=== PATIENT | female | born 1945 | race Caucasian/White ===

== ENCOUNTER → 2017-07-03 | Outpatient (CLI) | payer OTHER ==
[2016-05-12 09:35] VITALS: BP 127/62
--- NOTE | 2017-07-03 11:40 | CT ---
HISTORY: Fracture tibial tuberosity Study: CT right knee and proximal tibia and fibula Comparison: None available Technique: Axial noncontrast images with coronal and sagittal reformats. Dose reduction procedures we re used with mA/kv adjusted for body size. Findings: The patient is status post total knee arthroplasty which contributes some artifact. Position and alig nment of the arthroplasty appears anatomic. The patella is intact. A small joint effusion is identifi ed. There does appear to be a not significantly displaced fracture of the tibial tuberosity along its medial aspect. The remainder of the proximal tibia and proximal fibula are intact. IMPRESSION: Not significantly displaced fracture of the medial aspect of the tibial tubercle Small joint effusion Status post TKA in good anatomical position Reported By:
== END | disposition home or self-care (01) | DRG 563 ==
LOC: RAD 10:19
PROVIDERS: ATTEND Orthopaedic Surgery Sports Medicine
DX: S82.154A Nondisplaced fracture of right tibial tuberosity, initial encounter for closed fracture (principal); X58.XXXA Exposure to other specified factors, initial encounter; Z98.890 Other specified postprocedural states
CPT/HCPCS: 73700

== ENCOUNTER 2021-03-28 21:53 | Observation (INO) ==
--- NOTE | 2021-03-28 22:20 | DR.CP ---
HPI Time Seen Time Seen by Provider: 03/28/21 22:00 PCP Primary Care Physician: HPI Comment HPI Comment: PATIENT IS 75YR OLD FEMALE IN ER WITH CHEST PAIN THAT STATED SUDDENLY TONIGHT AND ASSOCIATED WITH DIAPHORESIS AND ELEVATED BP. Complaint Chief Complaint Doctor Comments: CHEST PAIN. Chief Complaint:: PT'S FAMILY STATED THAT SHE STARTED C/O BACK PAIN, MID-STERNAL CHEST PAIN AND SHE WAS DISORIENTED, DRENCHED IN SWEAT. PT STATES "IT FEELS LIKE A KNOT IN THE MIDDLE OF MY CHEST". FAMILY STATED [id number] AT HOME. COVID-19 Coronavirus risk:travel/contact w/high risk person: No Has patient experienced Coronavirus symptoms: No Reviewed Nurses Notes Review: Yes Source History Provided: Patient and Family Member Mode of Arrival Mode of Arrival: Ambulatory Timing Onset of Chief Complaint: 03/28/21 Came on: Suddenly Pain: Present Now Duration Duration: Constant Duration: Hours Location Location of Chest Pain: Chest Context Onset: At rest Cardiac Risk Factors: HTN PE Risk Factors: None History of: None Prehospital Care: None Quality Quality: Sharp Severity Severity: Moderate Modifying Factors Worsens: Exertion Impoves: Rest Associated Signs and Symptoms Associated Signs and Symptoms: Shortness of Breath PMH PMH Past Medical History: Yes Past Medical History: Anxiety, Depression, Diabetes, GERD, Hypertension and Renal Disease Past Medical History Comment: NEUROGENIC BLADDER, GUILLAIN-BARRE' SYNDROME Past Surgical History: Yes Surgical History: Cholecystectomy, Hysterectomy and Ortho Surgery Past Surgical History Comment: NECK X2, BACK X2, RIGHT TKA, CATARACTS Family History History of Family Medical Conditions: Yes Family Medical History: MD and Hypertension Social History Does patient currently use any type of tobacco product: Yes Have you used tobacco products in the last 12 months: Yes Type of Tobacco Use: Cigarettes Does any household member use tobacco: Yes Alcohol Use: None Do you use any recreational Drugs:: No Lives With: Family Lives Where: Home Travel Risk Coronavirus risk:travel/contact w/high risk person: No Has patient experienced Coronavirus symptoms: No Infectious screening In the last 2 months have you had wt loss of >10#?: NO Have you had fever, night sweats or hemotysis?: No Have you traveled outside the country in the last 6 months?: No Isolation: Standard ROS Review of Systems Constitutional: See HPI, Weakness and Fatigue; negative Fever Eyes: No Symptoms Reported and See HPI ENTM: No Symptoms Reported and See HPI; negative Nose Discharge and Nose Conges tion Respiratoy: See HPI and Short of Breath; negative Moist Cough and Wheezing Cardiovascular: See HPI and Chest Pain; negative Edema and Palpitations Gastrointestinal/Abdominal: No Symptoms Reported and See HPI; negative Abdominal Pain, Diarrhea, Nausea and Vomiting Genitourinary: No Symptoms Reported and See HPI; negative Dysuria and Hematuria Neurological: See HPI and Weakness; negative Headache and Dizziness Musculoskeletal: See HPI and Back Pain Integumentary: No Symptoms Reported and See HPI; negative Change in Color, Rash and Juandice Hematologic/Lymphatic: No Symptoms Reported, See HPI and Easy Bruising; negative Swollen Glands Endocrine: No Symptoms Reported and See HPI; negative Increased Thirst and Increased Urine Psychiatric: No Symptoms Reported and See HPI All Other Systems: Reviewed and Negative PE Vitals Vitals: Temperature 98.4 F Pulse Rate [Left] 60 Pulse Rate 49 Respiratory Rate 8 Blood Pressure [Right Arm] 196/74 Blood Pressure 100/52 O2 Sat by Pulse Oximetry 96 General Limitations: No Limitations General Appearance: Alert and In No Apparent Distress Head Head Exam: Normal Inspection and Atraumatic Eyes Eye exam: Normal Appearance and PERRL; negative Scleral Icterus and Conjunctival Injection ENT ENT Exam: Normal Exam, Normal Oropharynx, Normal External Ear Exam and TM's Normal Bilaterally Chest Chest Inspection: Normal Inspection and Symmetric Chest Wall Rise; negative Tenderness Respiratory Respiratory Exam: Normal Lung Sounds Bilat; negative Accessory Muscle Use, Chest Wall Tenderness and Respiratory Distress Respiratory Exam: Bilateral: Rhonchi and Lower: Rhonchi Cardiovascular Cardiovascular Exam: Regular Rate and Normal Rhythm; negative Systolic Murmur and Diastolic Murmur Pulse: Normal Edema: Normal Abdominal Exam Abdominal Exam: Normal Inspection, Normal Bowel Sounds and Soft; negative Tenderness Extremities Extremities Exam: Normal Inspection and Normal Capillary Refill Back Back Exam: Paraspinal Tenderness; negative (R) CVA Tenderness and (L) CVA Tenderness Neurologic Neurological Exam: Alert and Oriented X3 Psychiatric Psychiatric Exam: Normal Affect and Normal Mood Skin Skin Exam: Warm, Dry, Intact and Normal Color MDM Additional Information Additional Information Obtained From: Family Differential Diagnosis Differential Diagnosis: Angina, Chest Wall Pain, CHF, Costochondritis, Myocardial Infarction, Pericarditis, Pleuritis, Pneumonia and Pneumothorax COURSE Treatment Treatment: SEE ORDERS. ASA 81MG TAB, 4TABS PO, CLONIDINE 0.1MG PO AND TYLENOL 1GM PO IN ER. Education/Counseling Education/Counseling: Patient Educated On: Diagnosis ROR Labs Reviewed Laboratory Results Reviewed?: Yes Result Diagrams: 03/28/21 22:30 03/28/21 22: Laboratory: WBC 22.4 X10^3/uL (3.6-10.0) H 03/28/21 22:30 RBC 4.44 X10^6/uL (3.5-5.4) 03/28/21 22: Hgb 11.8 g/dL (12.0-16.0) L 03/28/21 22: Hct 35.9 % (36.0-47.0) L 03/28/21 22: MCV 80.8 fL (80.0-100.0) 03/28/21 22: MCH 26.7 pg (27.0-34.0) L 03/28/21 22: MCHC 33.0 g/dL (33.0-35.0) 03/28/21 22: RDW 18.5 % (11.6-16.5) H 03/28/21 22: Plt Count 207 X10^3/uL (150.0-450.0) 03/28/21 22: Plt Count Comment Adequate (ADEQUATE) 03/28/21 22: MPV 9.9 fL (7.4-11.0) 03/28/21 22:30 Neut % (Auto) 84.0 % (42.0-75.0) H 03/28/21 22: Lymph % (Auto) 8.8 % (21.0-51.0) L 03/28/21 22: Roberts % (Auto) 6.2 % (0.0-13.0) 03/28/21 22: Eos % (Auto) 0.6 % (0.9-2.9) L 03/28/21 22: Baso % (Auto) 0.4 % (0.2-1.0) 03/28/21 22:30 Neut # (Auto) 18.8 x10^3/uL (2.2-4.8) H 03/28/21 22:30 Lymph # (Auto) 2.0 X10^3/uL (1.3-2.9) 03/28/21 22:30 Roberts # (Auto) 1.4 x10^3/uL (0.3-0.8) H 03/28/21 22:30 Eos # (Auto) 0.1 x10^3/uL (0.0-0.2) 03/28/21 22:30 Baso # (Auto) 0.1 X10^3/uL (0.0-0.1) 03/28/21 22:30 Absolute Nucleated RBC 0.0 /100WBC 03/28/21 22:30 Total Counted 100 03/28/21 22:30 Neutrophils % (Manual) 83 % (39-76) H 03/28/21 22:30 Lymphocytes % (Manual) 10 % (13-43) L 03/28/21 22:30 Monocytes % (Manual) 7 % (4-9) 03/28/21 22:30 Plt Morphology Comment Normal (NORMAL) 03/28/21 22:30 RBC Morphology Normal (NORMAL) 03/28/21 22:30 Sodium 136 mmol/L (136-145) 03/28/21 22:30 Corrected Sodium 137 mmol/L (136-145) 03/28/21 22:30 Potassium 4.5 mmol/L (3.5-5.1) 03/28/21 22:30 Chloride 101 mmol/L (98-107) 03/28/21 22:30 Carbon Dioxide 29.3 mmol/L (21-32) 03/28/21 22:30 BUN 30 mg/dL (7-18) H 03/28/21 22:30 Creatinine 1.41 mg/dL (0.55-1.02) H 03/28/21 22:30 Est GFR (MDRD) Af Amer 47 (>60) L 03/28/21 22:30 Est GFR (MDRD) Non-Af 39 (>60) L 03/28/21 22:30 Glucose 139 mg/dL (65-99) H 03/28/21 22:30 Calcium 8.7 mg/dL (8.5-10.1) 03/28/21 22:30 Corrected Calcium 9.4 mg/dL (8.5-10.1) 03/28/21 22:30 Total Bilirubin 0.30 mg/dL (0.2-1.0) 03/28/21 22:30 AST 20 Units/L (15-37) 03/28/21 22:30 ALT 18 Units/L (12-78) 03/28/21 22:30 Alkaline Phosphatase 84 Units/L (46-116) 03/28/21 22:30 Creatine Kinase 39 Units/L (26-192) 03/28/21 22:30 CK-MB (CK-2) < 1.0 ng/mL (0-4.0) 03/28/21 22: CK/CKMB % Calc 2.6 % (<4) 03/28/21 22: Troponin I < 0.02 ng/mL (0-1.5) 03/28/21 22: B-Natriuretic Peptide 73.0 pg/mL (0-79) 03/28/21 22:30 Total Protein 7.1 g/dL (6.4-8.2) 03/28/21 22:30 Albumin 3.1 g/dL (3.4-5.0) L 03/28/21 22: Globulin 4.0 g/dL (2.5-4.5) 03/28/21 22:30 Albumin/Globulin Ratio 0.8 Ratio (1.1-2.1) L 03/28/21 22:30 Specimen Type Clean catch urine 03/28/21 23:20 Urine Color Yellow (YELLOW) 03/28/21 23:20 Urine Appearance Cloudy (CLEAR) 03/28/21 23:20 Urine pH 6.0 (5.0 - 8.0) 03/28/21 23:20 Ur Specific [place] 1.010 (1.000-1.030) 03/28/21 23:20 Urine Protein 2+ (NEGATIVE) 03/28/21 23:20 Urine Glucose (UA) Negative (NEGATIVE) 03/28/21 23:20 Urine Ketones Negative (NEGATIVE) 03/28/21 23:20 Urine Occult Blood 3+ (NEGATIVE) 03/28/21 23:20 Urine Nitrite Positive (NEGATIVE) 03/28/21 23:20 Urine Bilirubin Negative (NEGATIVE) 03/28/21 23:20 Urine Urobilinogen Normal (NORMAL) 03/28/21 23:20 Ur Leukocyte Esterase 3+ (NEGATIVE) 03/28/21 23:20 Urine RBC 3-5 /HPF (0-3) A 03/28/21 23:20 Urine WBC Tntc /HPF (0-5) A 03/28/21 23:20 Ur Squamous Epith Cells Negative /HPF (NEGATIVE) 03/28/21 23:20 Urine Bacteria 2+ /HPF (NEGATIVE) 03/28/21 23:20 Ur Culture Indicated? Yes/culture set up 03/28/21 23:20 SARS CoV-2 RNA Rapid CHRISTOPHER Negative (NEGATIVE) 03/29/21 01:00 XRAY XRAY Interpreted by: Radiologist (REPORT NOTED AND DISCUSSED WITH PATIENT.) and Self EKG Rate: 71 [place]: Normal Rhythm: NSR Block: 1 Hypertrophy: None ST: Nonsp Opioid Opioid Risk Tool Age (Khang box if 16-45): No History of Preadolescent Sexual Abuse: No Total: 0 Total Score Risk Category: Low Risk Copyright: Nils MORENO predicting aberrant behaviors Diagnosis Discharge Problem: Chest pain Qualifiers: Chest pain type: precordial pain Qualified Code(s): R07.2 - Precordial pain UTI (urinary tract infection) Qualifiers: Urinary tract infection type: site unspecified Hematuria presence: with hematuria Qualified Code(s): N39.0 - Urinary tract infection, site not specified Hypertension Qualifiers: Hypertension type: unspecified Qualified Code(s): I10 - Essential (primary) hy pertension Leukocytosis Qualifiers: Leukocytosis type: unspecified Qualified Code(s): D72.829 - Elevated white blood cell count, unspecified Instructions Forms: Precautions for COVID19 Patient Portal Social Distancing
[2021-03-28] MEDS ORDERED: ASPIRIN 81 MG CHEWTAB ONE (22:38)
[2021-03-28 22:42] LABS: BASOPHILS # (AUTO) 0.1 X10^3/uL (0.0-0.1); BASOPHILS % (AUTO) 0.4 % (0.2-1.0); EOSINOPHILS # (AUTO) 0.1 x10^3/uL (0.0-0.2); EOSINOPHILS % (AUTO) 0.6 % (0.9-2.9); HEMATOCRIT 35.9 % (36.0-47.0); HEMOGLOBIN 11.8 g/dL (12.0-16.0); LYMPHOCYTES % (AUTO) 8.8 % (21.0-51.0); MEAN CORPUSCULAR HEMOGLOBIN 26.7 pg (27.0-34.0); MEAN CORPUSCULAR VOLUME 80.8 fL (80.0-100.0); MEAN PLATELET VOLUME 9.9 fL (7.4-11.0); MONOCYTES # (AUTO) 1.4 x10^3/uL (0.3-0.8); MONOCYTES % (AUTO) 6.2 % (0.0-13.0); NEUTROPHILS # (AUTO) 18.8 x10^3/uL (2.2-4.8); PLATELET COUNT 207 X10^3/uL (150.0-450.0); RED BLOOD COUNT 4.44 X10^6/uL (3.5-5.4); RED CELL DISTRIBUTION WIDTH 18.5 % (11.6-16.5); WHITE BLOOD COUNT 22.4 X10^3/uL (3.6-10.0)
[2021-03-28] MEDS: ASPIRIN 81 MG CHEWTAB PO ONE ×2 (22:42→22:43)
[2021-03-28 23:00] LABS: ALANINE AMINOTRANSFERASE 18 Units/L (12-78); ALBUMIN 3.1 g/dL (3.4-5.0); ALKALINE PHOSPHATASE 84 Units/L (46-116); ASPARTATE AMINO TRANSFERASE 20 Units/L (15-37); BLOOD UREA NITROGEN 30 mg/dL (7-18); CALCIUM 8.7 mg/dL (8.5-10.1); CARBON DIOXIDE 29.3 mmol/L (21-32); CHLORIDE 101 mmol/L (98-107); CKMB % 2.6 % (<4); COR CA(FOR HYPOALB) 9.4 mg/dL (8.5-10.1); COR NA(FOR HYPERGLY) 137 mmol/L (136-145); CREATINE KINASE 39 Units/L (26-192); CREATINE KINASE MB < 1.0 ng/mL (0-4.0); CREATININE 1.41 mg/dL (0.55-1.02); SODIUM 136 mmol/L (136-145); TOTAL PROTEIN 7.1 g/dL (6.4-8.2); TROPONIN I < 0.02 ng/mL (0-1.5); eGFR NON BLACK RACES 39 (>60)
[2021-03-28] MEDS ORDERED: CATAPRES TAB 0.1 MG PO ONE (23:01)
[2021-03-28] MEDS ORDERED: TYLENOL 500 MG TAB EXTRA STRENGTH PO ONE ×2 (23:02→23:05)
[2021-03-28] MEDS ORDERED: CATAPRES TAB 0.1 MG ONE (23:05)
--- NOTE | 2021-03-28 23:08 | RAD ---
PROCEDURE: Chest X-ray 1 View .HISTORY: chest pain .TECHNIQUE: AP view .COMPARISON: None .TECHNICAL QUALITY: Satisfactory .FINDINGS:Normal size heart .Mediastinum and hilar regions show no masses or lymphadenopathy .Normal central vascularity .No pulmonary consolidation, masses, pleural fluid, or pneumothorax .No acute bony abnormality .IMPRESSION:No active cardiopulmonary disease .Electronically signed by: Eddy Ramsey (Mar 28, 2021 23:05:56)
[2021-03-28 23:27] LABS: BILIRUBIN,URINE NEGATIVE (NEGATIVE); BLOOD/HEMOGLOBIN,URINE 3+ (NEGATIVE); GLUCOSE, URINE NEGATIVE (NEGATIVE); KETONES,URINE NEGATIVE (NEGATIVE); LEUKOCYTE ESTERASE ,URINE 3+ (NEGATIVE); NITRITES,URINE POSITIVE (NEGATIVE); PROTEIN,URINE 2+ (NEGATIVE); UROBILINOGEN,URINE NORMAL (NORMAL)
[2021-03-28 23:29] LABS: PLATELET MORPHOLOGY COMMENT NORMAL (NORMAL)
[2021-03-28 23:35] LABS: APPEARANCE,URINE CLOUDY (CLEAR); BACTERIA,URINE 2+ /HPF (NEGATIVE); COLOR,URINE YELLOW (YELLOW); SQUAMOUS EPITHELIAL CELL,UR NEGATIVE /HPF (NEGATIVE)
[2021-03-29] MEDS ORDERED: ROCEPHIN 1 GRAM IV PREMIX 1 G/50 ML IV.SOLN. IV ONE ×2 (00:30→00:35)
[2021-03-29] MEDS ORDERED: NS 1000 ML 1,000 ML ONE (00:52)
[2021-03-29] MEDS: NS 1000 ML 1,000 ML IV SCH ×2 (01:05→22:00)
[2021-03-29] MEDS ORDERED: ZANAFLEX PO PRN (02:49)
[2021-03-29 04:44] VITALS: BMI 27.3
[2021-03-29 05:11] LABS: BASOPHILS # (AUTO) 0.1 X10^3/uL (0.0-0.1); BASOPHILS % (AUTO) 0.5 % (0.2-1.0); EOSINOPHILS # (AUTO) 0.1 x10^3/uL (0.0-0.2); EOSINOPHILS % (AUTO) 0.8 % (0.9-2.9); HEMATOCRIT 31.1 % (36.0-47.0); HEMOGLOBIN 10.3 g/dL (12.0-16.0); LYMPHOCYTES # (AUTO) 2.6 X10^3/uL (1.3-2.9); MEAN CORPUSCULAR HEMOGLOBIN 26.7 pg (27.0-34.0); MEAN CORPUSCULAR HGB CONC 33.1 g/dL (33.0-35.0); MEAN CORPUSCULAR VOLUME 80.8 fL (80.0-100.0); MEAN PLATELET VOLUME 10.1 fL (7.4-11.0); NEUTROPHILS # (AUTO) 13.4 x10^3/uL (2.2-4.8); NEUTROPHILS % (AUTO) 77.7 % (42.0-75.0); PLATELET COUNT 186 X10^3/uL (150.0-450.0); RED BLOOD COUNT 3.85 X10^6/uL (3.5-5.4); RED CELL DISTRIBUTION WIDTH 18.3 % (11.6-16.5); WHITE BLOOD COUNT 17.3 X10^3/uL (3.6-10.0)
[2021-03-29 05:45] LABS: ALANINE AMINOTRANSFERASE 15 Units/L (12-78); ALBUMIN 2.5 g/dL (3.4-5.0); ALKALINE PHOSPHATASE 74 Units/L (46-116); ASPARTATE AMINO TRANSFERASE 18 Units/L (15-37); BLOOD UREA NITROGEN 30 mg/dL (7-18); CALCIUM 8.4 mg/dL (8.5-10.1); CHLORIDE 104 mmol/L (98-107); CKMB % 3.9 % (<4); COR CA(FOR HYPOALB) 9.6 mg/dL (8.5-10.1); COR NA(FOR HYPERGLY) 139 mmol/L (136-145); CREATINE KINASE 33 Units/L (26-192); CREATINE KINASE MB 1.3 ng/mL (0-4.0); CREATININE 1.28 mg/dL (0.55-1.02); SODIUM 138 mmol/L (136-145); TOTAL PROTEIN 6.1 g/dL (6.4-8.2); TROPONIN I < 0.02 ng/mL (0-1.5); eGFR NON BLACK RACES 43 (>60)
[2021-03-29] MEDS ORDERED: LEXAPRO ONE (08:55)
[2021-03-29] MEDS: LEXAPRO PO SCH (09:18)
[2021-03-29] MEDS: LYRICA CAP 75 mg PO SCH (09:18)
[2021-03-29] MEDS: NAMENDA TAB 10 MG PO SCH ×2 (09:19→21:08)
[2021-03-29] MEDS: URECHOLINE PO SCH ×3 (09:19→09:39)
--- NOTE | 2021-03-29 10:52 | DR.H&P ---
H&P - History & Physical for Day of: H&P Date: 03/29/21 - Chief Complaint Chief Complaint: CHEST PAIN, DISORIENTATION, DIAPHORESIS, LOWER BACK PAIN - History of Present Illness History of Present Illness: IS A 75 YEAR OLD PATIENT OF OURS. SHE PRESENTED TO THE ER WITH COMPLAINTS OF CHEST PAIN, DISORIENTATION, DIARPHORESIS, AND LOWER BACK PAIN. PATIENT REPORTS THAT SYMPTOMS STARTED SUDDENLY TODAY, PAIN IS DESCRIBED SUBSTERNAL, SHARP, AND WAS RATED A 6/10 ON ARRIVAL. SHE ALSO REPORTS ASSOCIATED SHORTNESS OF BREATH. HER PMH INCLUDES: ANXIETY, DEPRESSION DIABETES, GERD, HTN, RENAL DISEASE, NEUROGENIC BLADDER, GUILLAIN-BARRE SYNDROME. PAST SURGICAL HISTORY INCLUDES: CHOLECYSTECTOMY, HYSTERECTOMY, NECK SURGERY X 2, BACK SURGERY X 2, RIGHT TKA, AND CATARACT SURGERY. ON ARRIVAL TO THE ER, VITALS WERE 98.4-59-20-100%-180/73. LABS WERE OBTAINED. ABNORMAL LAB VALUES INCLUDE THE FOLLOWING: WBC 22.4, HGB 11.8, HCT 35.9, BUN 30, CREATININE 1.41, GLUCOSE 139, ALBUMIN 3.1. CARDIAC ENYZMES WERE WITHIN NORMAL LIMITS. COVID-19 NEGATIVE. A URINALYSIS WAS OBTAINED AND REVEALED: WBC TNTC, RBC 3-5, LEUKOCYTES 3+, BACTERIA 2+, OCCULT BLOOD 3+, NITRITES POSITIVE. URINE AND BLOOD CULTURES WERE SET UP. EKG OBTAINED AND REVEALED: SINUS RHYTHM WITH HR 71. CHEST XRAY REVEALED: No active cardiopulmonary disease. IN THE ER, SHE WAS GIVEN ASPIRIN 324MG PO X 1, CATAPRES 0.1MG PO X 1, TYLENOL 1000MG PO X 1, ROCEPHIN 1G IV X 1. SHE WAS ADMITTED TO THE HOSPITAL FOR FURTHER EVALUATION AND TREATMENT OF LEUKOCYTOSIS, UTI, CHEST PAIN RULE OUT ACUTE RI, LOWER BACK PAIN. SHE WAS STARTED ON NORMAL SALINE AT 50 ML/HR, ROCEPHIN 1G IV HS, AND HER HOME MEDICATIONS OF TIZANIDINE, LEXAPRO, LYRICA, AND BETHANECHOL WERE RESUMED. WE WILL OBTAIN A LUMBAR SPINE XRAY. OTHERWISE, WE WILL FOLLOW UP WITH AM LABS AND CONTINUE TO MONITOR. TIME SPENT ON CLINICAL ASSESSMENT, REVIEWING LABS AND IMAGING, DECISION MAKING, AND DOCUMENTATION GREATER THAN 45 MINUTES. - Past Medical History Past Medical History: Hypertension, Diabetes, Renal Disease, Depression, Anxiety, GERD Additional Medical History: NEUROGENIC BLADDER, GUILLAIN-BARRE SYNDROME - Past Surgical History Surgical History: Cholecystectomy, Hysterectomy, Ortho Surgery - Family History Family Medical History: RI, Hypertension - Social History Does patient currently use any type of tobacco product: Yes Have you used tobacco products in the last 12 months: Yes Type of Tobacco Use: Cigarettes How many years tobacco product used: 53 Does any household member use tobacco: Yes Alcohol Use: None Drug Use: None - Medications Home Medications: ciprofloxacin [From Cipro HC] Adverse Reaction (Severe, Verified 03/28/21 21:54) ANAPHALEXIS REACTION hydrocortisone [From Cipro HC] Adverse Reaction (Severe, Verified 03/28/21 21:54) ANAPHALEXIS REACTION acetaminophen [From Lorcet (hydrocodone)] Adverse Reaction (Mild, Verified 03/28/21 21:54) RASH baclofen Adverse Reaction (Mild, Verified 03/28/21 21:54) RASH hydrocodone [From Lorcet (hydrocodone)] Adverse Reaction (Mild, Verified 03/28/21 21:54) RASH tramadol Adverse Reaction (Mild, Verified 03/28/21 21:54) RASH CONTINUE taking the following medications bethanechol chloride 10 mg PO QID 03/28/21 [History] clonazepam 0.5 mg PO HS 03/28/21 [History] escitalopram oxalate [Lexapro] 5 mg PO DAILY 03/28/21 [History] famotidine 40 mg PO BID 03/28/21 [History] memantine [Namenda] 5 mg PO BID 03/28/21 [History] tizanidine 4 mg PO BID PRN 03/28/21 [History] - Review of Systems Constitutional: See HPI, Chills, Weakness Eyes: No Symptoms Reported ENT: No Symptoms Reported Respiratory: No Symptoms Reported Cardiovascular: Chest Pain, Light Headedness Gastrointestinal: No Symptoms Reported Genitourinary: No Symptoms Reported Musculoskeletal: Back Pain Skin: No Symptoms Reported Neurological: See HPI, Weakness, Confusion - Physical Exam Vital Signs: Temperature 97.6 F Pulse Rate [Left] 48 Pulse Rate 49 Respiratory Rate 18 Blood Pressure [Right Arm] 118/57 Blood Pressure 100/52 O2 Sat by Pulse Oximetry 98 Oriented: Person Eyes: Normal Ear: Normal Nose: Normal Throat: Normal Respiratory: Diminished Throughout Cardiovascular: Normal : Normal Auscultation: Bowel Sounds: Normal Palpation: Normal Tenderness: Normal Skin: Diaphoresis Musculoskeletal: Back:Lumbar Psychiatric: Normal Mood Description: Calm Affect: Normal Speech Pattern: Clear - Assessment/Plan (1) Leukocytosis Qualifiers: Leukocytosis type: unspecified Qualified Code(s): D72.829 - Elevated white blood cell count, unspecified Status: Acute Plan: ADMIT, BLOOD AND URINE CULTURES, NORMAL SALINE AT 50 ML/HR, ROCEPHIN 1G IV HS, AND HER HOME MEDICATIONS OF TIZANIDINE, LEXAPRO, LYRICA, AND BETHANECHOL WERE RESUMED. (2) UTI (urinary tract infection) Qualifiers: Urinary tract infection type: site unspecified Hematuria presence: with hematuria Qualified Code(s): N39.0 - Urinary tract infection, site not specified; R31.9 - Hematuria, unspecified Status: Acute (3) Chest pain Qualifiers: Chest pain type: precordial pain Qualified Code(s): R07.2 - Precordial pain Status: Acute (4) Low back pain Qualifiers: Chronicity: unspecified Back pain laterality: unspecified Sciatica presence: unspecified whether sciatica present Qualified Code(s): M54.5 - Low back pain Status: Acute - Allergies Allergies/Adverse Reactions: Allergies Allergy/AdvReac Type Severity Reaction Status Date / Time ciprofloxacin [From Cipro HC] AdvReac Severe ANAPHALEXIS Verified 03/28/21 21:54 REACTION hydrocortisone AdvReac Severe ANAPHALEXIS Verified 03/28/21 21:54 [From Cipro HC] REACTION acetaminophen AdvReac Mild RASH Verified 03/28/21 21:54 [From Lorcet (hydrocodone)] baclofen AdvReac Mild RASH Verified 03/28/21 21:54 hydrocodone AdvReac Mild RASH Verified 03/28/21 21:54 [From Lorcet (hydrocodone)] tramadol AdvReac Mild RASH Verified 03/28/21 21:54
[2021-03-29] MEDS: PATIENT'S HOME MEDICATION PO SCH ×2 (10:55→21:11)
--- NOTE | 2021-03-29 11:33 | RAD ---
HISTORYLOW BACK PAINSTUDYLUMBAR SPINE, x-ray AP/LATCOMPARISONNoneFINDINGSModerate gaseous distention is seen of the colon, especially the transverse colon. Moderate gaseous dilation of the stomach is seen. No constipation or bowel obstruction is suggested.Diffuse arthritic facet changes are greatest at L5-S1. Mild disc space narrowing is seen at L5-S1. Moderate to prominent posterior osteophytes are seen in the mid to lower lumbar spine. No compression fracture is seen. No spondylolisthesis is seen. There is mild prominence of the upper abdominal aorta which measures 2.3 cm in diameter.IMPRESSIONModerate lumbar spondylosis.Electronically signed by: Hernán Mcdaniels (Mar 29, 2021 11:30:46)
[2021-03-29 11:35] LABS: CREATINE KINASE 37 Units/L (26-192); TROPONIN I < 0.02 ng/mL (0-1.5)
[2021-03-29 11:59] LABS: CKMB % 4.1 % (<4); CREATINE KINASE MB 1.5 ng/mL (0-4.0)
[2021-03-29] MEDS: LOVENOX INJ 30 MG SYR SC SCH (14:05)
[2021-03-29] MEDS: ZANAFLEX PO PRN (21:07)
[2021-03-29] MEDS: KLONOPIN TAB 0.5 MG PO SCH (21:08)
[2021-03-29] MEDS: ROCEPHIN IV SCH (22:00)
[2021-03-29] MEDS: SPIKE MINIBAG IV SCH (22:00)
[2021-03-29] MEDS: NS IV SCH (22:00)
[2021-03-30] MEDS: NS 1000 ML 1,000 ML IV SCH ×2 (04:49→07:51)
[2021-03-30 06:03] LABS: BASOPHILS # (AUTO) 0.1 X10^3/uL (0.0-0.1); BASOPHILS % (AUTO) 0.7 % (0.2-1.0); EOSINOPHILS # (AUTO) 0.3 x10^3/uL (0.0-0.2); HEMATOCRIT 28.6 % (36.0-47.0); HEMOGLOBIN 9.6 g/dL (12.0-16.0); LYMPHOCYTES # (AUTO) 3.2 X10^3/uL (1.3-2.9); LYMPHOCYTES % (AUTO) 36.6 % (21.0-51.0); MEAN CORPUSCULAR HEMOGLOBIN 27.5 pg (27.0-34.0); MEAN CORPUSCULAR HGB CONC 33.8 g/dL (33.0-35.0); MEAN CORPUSCULAR VOLUME 81.5 fL (80.0-100.0); MEAN PLATELET VOLUME 10.5 fL (7.4-11.0); MONOCYTES # (AUTO) 0.7 x10^3/uL (0.3-0.8); NEUTROPHILS # (AUTO) 4.4 x10^3/uL (2.2-4.8); NEUTROPHILS % (AUTO) 51.7 % (42.0-75.0); PLATELET COUNT 167 X10^3/uL (150.0-450.0); RED CELL DISTRIBUTION WIDTH 18.6 % (11.6-16.5); WHITE BLOOD COUNT 8.6 X10^3/uL (3.6-10.0)
[2021-03-30 06:18] LABS: ALBUMIN 2.4 g/dL (3.4-5.0); COR CA(FOR HYPOALB) 9.3 mg/dL (8.5-10.1); CREATININE 1.45 mg/dL (0.55-1.02); TOTAL PROTEIN 5.7 g/dL (6.4-8.2)
[2021-03-30] MEDS ORDERED: LEXAPRO ONE (09:44)
[2021-03-30] MEDS: LEXAPRO PO SCH (09:54)
[2021-03-30] MEDS: LYRICA CAP 75 mg PO SCH (09:54)
[2021-03-30] MEDS: NAMENDA TAB 10 MG PO SCH ×2 (09:55→21:19)
[2021-03-30] MEDS: LOVENOX INJ 30 MG SYR SC SCH (09:55)
[2021-03-30] MEDS: PATIENT'S HOME MEDICATION PO SCH ×2 (09:59→21:20)
[2021-03-30] MEDS ORDERED: NS 1/2 1000 ML IV 1,000 ML IV ONE (12:18)
[2021-03-30] MEDS: NS 1/2 1000 ML IV 1,000 ML IV SCH (12:20)
--- NOTE | 2021-03-30 16:33 | PCM.PROG ---
Progress Note - Progress Note for Day of Date of Exam: 03/30/21 - Subjective Subjective: WAS ADMITTED FOR TREATMENT OF LEUKOCYTOSIS, UTI, CHEST PAIN, AND LOWER BACK PAIN. TODAY, SHE IS ALERT AND ORIENTED, LYING IN BED ON MORNING ROUNDS. SHE REPORTS GENERALIZED WEAKNESS AND CONTINUES WITH LOWER BACK PAIN. SHE DENIES CHEST PAIN. ON EXAMINATION, HEART IS REGULAR IN RATE AND RHYTHM. BILATERAL LUNGS ARE CLEAR TO AUSCULTATION. ABDOMEN IS ROUND, SOFT, AND NON-TENDER WITH NORMAL BOWEL SOUNDS NOTED IN ALL QUADRANTS. HER VITALS THIS MORNING ARE: 97.8-53-18-98%-116/58. LABS WERE OBTAINED. ABNORMAL LAB VALUES INCLUDE THE FOLLOWING: HGB 9.6, HCT 28.6, SODIUM 146, CHLORIDE 113, BUN 33, CREATININE 1.45, GLUCOSE 144, CALCIUM 8.0, TOTAL BILI 0.10, TOTAL PROTEIN 5.7, ALBUMIN 2.4. URINE AND BLOOD CULTURES ARE PENDING. L-SPINE WAS OBTAINED AND REVEALED: Moderate lumbar spondylosis. SHE IS CURRENTLY RECEIVING NORMAL SALINE AT 50 ML/HR, ROCEPHIN 1G IV HS, AND HER HOME MEDICATIONS OF TIZANIDINE, LEXAPRO, LYRICA, AND BETHANECHOL WERE RESUMED. WE WILL CONTINUE WITH CURRENT PLAN OF CARE TODAY. OTHERWISE, WE WILL FOLLOW UP WITH AM LABS AND CONTINUE TO MONITOR. TIME SPENT ON CLINICAL ASSESSMENT, REVIEWING LABS AND IMAGING, DECISION MAKING, AND DOCUMENTATION WAS GREATER THAN 45 MINUTES. - Past Medical Family Social History Past Med/Fam/Surg Hx: No changes since H&P Allergies: Allergies ciprofloxacin [From Cipro HC] Adverse Reaction (Severe, Verified 03/28/21 21:54) ANAPHALEXIS REACTION hydrocortisone [From Cipro HC] Adverse Reaction (Severe, Verified 03/28/21 21:54) ANAPHALEXIS REACTION acetaminophen [From Lorcet (hydrocodone)] Adverse Reaction (Mild, Verified 03/28/21 21:54) RASH baclofen Adverse Reaction (Mild, Verified 03/28/21 21:54) RASH hydrocodone [From Lorcet (hydrocodone)] Adverse Reaction (Mild, Verified 03/28/21 21:54) RASH tramadol Adverse Reaction (Mild, Verified 03/28/21 21:54) RASH - Review of Systems ROS: No change since H&P - Vital Signs and I&O's Vital Signs: Temperature 97.4 F Pulse Rate [Left] 55 Pulse Rate 49 Respiratory Rate 18 Blood Pressure [Right Arm] 140/62 Blood Pressure 100/52 O2 Sat by Pulse Oximetry 97 Intake and Output: Intake & Output 03/28/21 03/29/21 03/30/21 03/31/21 11:59 11:59 11:59 11:59 Intake Total 650 / 650 1900 / 1900 Output Total 400 / 400 Balance 250 / 250 1900 / 1900 - Physical Exam Oriented: Person Eyes: Normal Ear: Normal Nose: Normal Throat: Normal Respiratory: Normal Cardiovascular: Normal : Normal Auscultation: Bowel Sounds: Normal Palpation: Normal Tenderness: Normal Skin: Diaphoresis Musculoskeletal: Back:Lumbar Psychiatric: Normal Mood Description: Calm Affect: Normal Speech Pattern: Clear, Appropriate - Laboratory and Diagnostics Result Diagrams: 03/30/21 04:40 03/30/21 04:40 Labs: 03/28/21 23:20 Urine,Clean Catch Urine Culture - Preliminary Laboratory WBC 8.6 X10^3/uL (3.6-10.0) D 03/30/21 04:40 RBC 3.50 X10^6/uL (3.5-5.4) 03/30/21 04:40 Hgb 9.6 g/dL (12.0-16.0) L 03/30/21 04:40 Hct 28.6 % (36.0-47.0) L 03/30/21 04:40 MCV 81.5 fL (80.0-100.0) 03/30/21 04:40 MCH 27.5 pg (27.0-34.0) 03/30/21 04:40 MCHC 33.8 g/dL (33.0-35.0) 03/30/21 04:40 RDW 18.6 % (11.6-16.5) H 03/30/21 04:40 Plt Count 167 X10^3/uL (150.0-450.0) 03/30/21 04:40 Plt Count Comment Adequate (ADEQUATE) 03/28/21 22:30 MPV 10.5 fL (7.4-11.0) 03/30/21 04:40 Neut % (Auto) 51.7 % (42.0-75.0) 03/30/21 04:40 Lymph % (Auto) 36.6 % (21.0-51.0) 03/30/21 04:40 Burnett % (Auto) 8.0 % (0.0-13.0) 03/30/21 04:40 Eos % (Auto) 3.0 % (0.9-2.9) H 03/30/21 04:40 Baso % (Auto) 0.7 % (0.2-1.0) 03/30/21 04:40 Neut # (Auto) 4.4 x10^3/uL (2.2-4.8) 03/30/21 04:40 Lymph # (Auto) 3.2 X10^3/uL (1.3-2.9) H 03/30/21 04:40 Burnett # (Auto) 0.7 x10^3/uL (0.3-0.8) 03/30/21 04:40 Eos # (Auto) 0.3 x10^3/uL (0.0-0.2) H 03/30/21 04:40 Baso # (Auto) 0.1 X10^3/uL (0.0-0.1) 03/30/21 04:40 Absolute Nucleated RBC 0.0 /100WBC 03/30/21 04:40 Total Counted 100 03/28/21 22:30 Neutrophils % (Manual) 83 % (39-76) H 03/28/21 22:30 Lymphocytes % (Manual) 10 % (13-43) L 03/28/21 22:30 Monocytes % (Manual) 7 % (4-9) 03/28/21 22:30 Plt Morphology Comment Normal (NORMAL) 03/28/21 22:30 RBC Morphology Normal (NORMAL) 03/28/21 22:30 Sodium 146 mmol/L (136-145) H 03/30/21 04:40 Corrected Sodium 147 mmol/L (136-145) H 03/30/21 04:40 Potassium 4.6 mmol/L (3.5-5.1) 03/30/21 04:40 Chloride 113 mmol/L (98-107) H 03/30/21 04:40 Carbon Dioxide 27.0 mmol/L (21-32) 03/30/21 04:40 BUN 33 mg/dL (7-18) H 03/30/21 04:40 Creatinine 1.45 mg/dL (0.55-1.02) H 03/30/21 04:40 Est GFR (MDRD) Af Amer 46 (>60) L 03/30/21 04:40 Est GFR (MDRD) Non-Af 38 (>60) L 03/30/21 04:40 Glucose 144 mg/dL (65-99) H 03/30/21 04:40 Calcium 8.0 mg/dL (8.5-10.1) L 03/30/21 04:40 Corrected Calcium 9.3 mg/dL (8.5-10.1) 03/30/21 04:40 Magnesium 3.0 mg/dL (1.7-2.9) H 03/29/21 04:15 Total Bilirubin 0.10 mg/dL (0.2-1.0) L 03/30/21 04:40 AST 18 Units/L (15-37) 03/30/21 04:40 ALT 15 Units/L (12-78) 03/30/21 04:40 Alkaline Phosphatase 69 Units/L (46-116) 03/30/21 04:40 Creatine Kinase 37 Units/L (26-192) 03/29/21 10:48 CK-MB (CK-2) 1.5 ng/mL (0-4.0) 03/29/21 10:48 CK/CKMB % Calc 4.1 % (<4) 03/29/21 10:48 Troponin I < 0.02 ng/mL (0-1.5) 03/29/21 10:48 B-Natriuretic Peptide 73.0 pg/mL (0-79) 03/28/21 22:30 Total Protein 5.7 g/dL (6.4-8.2) L 03/30/21 04:40 Albumin 2.4 g/dL (3.4-5.0) L 03/30/21 04:40 Globulin 3.3 g/dL (2.5-4.5) 03/30/21 04:40 Albumin/Globulin Ratio 0.7 Ratio (1.1-2.1) L 03/30/21 04:40 Specimen Type Clean catch urine 03/28/21 23:20 Urine Color Yellow (YELLOW) 03/28/21 23:20 Urine Appearance Cloudy (CLEAR) 03/28/21 23:20 Urine pH 6.0 (5.0 - 8.0) 03/28/21 23:20 Ur Specific Adamant 1.010 (1.000-1.030) 03/28/21 23:20 Urine Protein 2+ (NEGATIVE) 03/28/21 23:20 Urine Glucose (UA) Negative (NEGATIVE) 03/28/21 23:20 Urine Ketones Negative (NEGATIVE) 03/28/21 23:20 Urine Occult Blood 3+ (NEGATIVE) 03/28/21 23:20 Urine Nitrite Positive (NEGATIVE) 03/28/21 23:20 Urine Bilirubin Negative (NEGATIVE) 03/28/21 23:20 Urine Urobilinogen Normal (NORMAL) 03/28/21 23:20 Ur Leukocyte Esterase 3+ (NEGATIVE) 03/28/21 23:20 Urine RBC 3-5 /HPF (0-3) A 03/28/21 23:20 Urine WBC Tntc /HPF (0-5) A 03/28/21 23:20 Ur Squamous Epith Cells Negative /HPF (NEGATIVE) 03/28/21 23:20 Urine Bacteria 2+ /HPF (NEGATIVE) 03/28/21 23:20 Ur Culture Indicated? Yes/culture set up 03/28/21 23:20 SARS CoV-2 RNA Rapid CHRISTOPHER Negative (NEGATIVE) 03/29/21 01:00 - Plan (1) Leukocytosis Status: Acute Qualifiers: Leukocytosis type: unspecified Qualified Code(s): D72.829 - Elevated white blood cell count, unspecified Plan: BLOOD AND URINE CULTURES, NORMAL SALINE AT 50 ML/HR, ROCEPHIN 1G IV HS, AND HER HOME MEDICATIONS OF TIZANIDINE, LEXAPRO, LYRICA, AND BETHANECHOL WERE RESUMED. (2) UTI (urinary tract infection) Status: Acute Qualifiers: Urinary tract infection type: site unspecified Hematuria presence: with hematuria Qualified Code(s): N39.0 - Urinary tract infection, site not specified; R31.9 - Hematuria, unspecified (3) Chest pain Status: Acute Qualifiers: Chest pain type: precordial pain Qualified Code(s): R07.2 - Precordial pain (4) Low back pain Status: Acute Qualifiers: Chronicity: unspecified Back pain laterality: unspecified Sciatica presence: unspecified whether sciatica present Qualified Code(s): M54.5 - Low back pain
[2021-03-30] MEDS: KLONOPIN TAB 0.5 MG PO SCH (21:19)
[2021-03-30] MEDS: ROCEPHIN IV SCH (21:20)
[2021-03-30] MEDS: SPIKE MINIBAG IV SCH (21:20)
[2021-03-30] MEDS: NS IV SCH (21:20)
[2021-03-30] MEDS: ZANAFLEX PO PRN (21:32)
[2021-03-31] MEDS: NS 1/2 1000 ML IV 1,000 ML IV SCH ×2 (05:12→06:36)
[2021-03-31] MEDS ORDERED: NS 1/2 1000 ML IV 1,000 ML IV ONE (05:49)
[2021-03-31 05:58] LABS: BASOPHILS # (AUTO) 0.1 X10^3/uL (0.0-0.1); BASOPHILS % (AUTO) 0.8 % (0.2-1.0); EOSINOPHILS # (AUTO) 0.3 x10^3/uL (0.0-0.2); EOSINOPHILS % (AUTO) 2.9 % (0.9-2.9); HEMATOCRIT 29.4 % (36.0-47.0); HEMOGLOBIN 9.8 g/dL (12.0-16.0); LYMPHOCYTES # (AUTO) 3.5 X10^3/uL (1.3-2.9); LYMPHOCYTES % (AUTO) 39.6 % (21.0-51.0); MEAN CORPUSCULAR HEMOGLOBIN 27.4 pg (27.0-34.0); MEAN CORPUSCULAR HGB CONC 33.3 g/dL (33.0-35.0); MEAN CORPUSCULAR VOLUME 82.4 fL (80.0-100.0); MEAN PLATELET VOLUME 10.4 fL (7.4-11.0); MONOCYTES # (AUTO) 0.8 x10^3/uL (0.3-0.8); NEUTROPHILS # (AUTO) 4.2 x10^3/uL (2.2-4.8); NEUTROPHILS % (AUTO) 47.7 % (42.0-75.0); PLATELET COUNT 173 X10^3/uL (150.0-450.0); RED BLOOD COUNT 3.57 X10^6/uL (3.5-5.4); RED CELL DISTRIBUTION WIDTH 18.4 % (11.6-16.5); WHITE BLOOD COUNT 8.7 X10^3/uL (3.6-10.0)
[2021-03-31 06:43] LABS: ALANINE AMINOTRANSFERASE 18 Units/L (12-78); ALBUMIN 2.3 g/dL (3.4-5.0); ALKALINE PHOSPHATASE 67 Units/L (46-116); ASPARTATE AMINO TRANSFERASE 27 Units/L (15-37); BLOOD UREA NITROGEN 23 mg/dL (7-18); CALCIUM 8.2 mg/dL (8.5-10.1); CARBON DIOXIDE 26.3 mmol/L (21-32); CHLORIDE 113 mmol/L (98-107); COR CA(FOR HYPOALB) 9.6 mg/dL (8.5-10.1); CREATININE 1.27 mg/dL (0.55-1.02); SODIUM 146 mmol/L (136-145); TOTAL PROTEIN 5.8 g/dL (6.4-8.2); eGFR NON BLACK RACES 44 (>60)
[2021-03-31] MEDS ORDERED: LEXAPRO ONE (09:18)
[2021-03-31] MEDS: LOVENOX INJ 30 MG SYR SC SCH (10:02)
[2021-03-31] MEDS: LEXAPRO PO SCH (10:02)
[2021-03-31] MEDS: PATIENT'S HOME MEDICATION PO SCH (10:03)
[2021-03-31] MEDS: LYRICA CAP 75 mg PO SCH (10:03)
[2021-03-31] MEDS: NAMENDA TAB 10 MG PO SCH (10:03)
[2021-03-31 12:46] VITALS: BP 132/63
== END 2021-03-31 12:20 | disposition home or self-care (01) ==
LOC: MED/SURG 21:53 → ER 21:53 → MED/SURG 03-29 02:42
PROVIDERS: ADMIT Internal Medicine; ATTEND Internal Medicine
DX: I10 Essential (primary) hypertension; R26.89 Other abnormalities of gait and mobility; K21.9 Gastro-esophageal reflux disease without esophagitis; B96.89 Other specified bacterial agents as the cause of diseases classified elsewhere; E11.65 Type 2 diabetes mellitus with hyperglycemia; Z20.822 Contact with and (suspected) exposure to COVID-19; R06.02 Shortness of breath; N39.0 Urinary tract infection, site not specified; M54.5 Low back pain; M47.896 Other spondylosis, lumbar region; R41.0 Disorientation, unspecified; R07.2 Precordial pain

== ENCOUNTER 2021-10-02 15:57 | Inpatient (IN) ==
[2021-10-02 16:17] VITALS: BMI 26.5
[2021-10-02 16:50] LABS: BILIRUBIN,URINE NEGATIVE (NEGATIVE); BLOOD/HEMOGLOBIN,URINE 5+ (NEGATIVE); GLUCOSE, URINE NEGATIVE (NEGATIVE); KETONES,URINE NEGATIVE (NEGATIVE); LEUKOCYTE ESTERASE ,URINE 3+ (NEGATIVE); NITRITES,URINE POSITIVE (NEGATIVE); PROTEIN,URINE 4+ (NEGATIVE); UROBILINOGEN,URINE NORMAL (NORMAL)
[2021-10-02 16:57] LABS: APPEARANCE,URINE CLOUDY (CLEAR); COLOR,URINE YELLOW (YELLOW)
[2021-10-02 16:58] LABS: BACTERIA,URINE 3+ /HPF (NEGATIVE); HYALINE CASTS, URINE FEW /LPF (NEGATIVE); SQUAMOUS EPITHELIAL CELL,UR FEW /HPF (NEGATIVE)
[2021-10-02 17:21] LABS: BASOPHILS # (AUTO) 0.1 X10^3/uL (0.0-0.1); BASOPHILS % (AUTO) 0.3 % (0.2-1.0); EOSINOPHILS % (AUTO) 0.1 % (0.9-2.9); HEMATOCRIT 39.7 % (36.0-47.0); HEMOGLOBIN 13.2 g/dL (12.0-16.0); LYMPHOCYTES # (AUTO) 0.8 X10^3/uL (1.3-2.9); LYMPHOCYTES % (AUTO) 3.8 % (21.0-51.0); MEAN CORPUSCULAR HEMOGLOBIN 28.9 pg (27.0-34.0); MEAN CORPUSCULAR HGB CONC 33.2 g/dL (33.0-35.0); MEAN CORPUSCULAR VOLUME 86.9 fL (80.0-100.0); MEAN PLATELET VOLUME 10.2 fL (7.4-11.0); MONOCYTES % (AUTO) 4.5 % (0.0-13.0); NEUTROPHILS # (AUTO) 19.5 x10^3/uL (2.2-4.8); NEUTROPHILS % (AUTO) 91.3 % (42.0-75.0); RED BLOOD COUNT 4.56 X10^6/uL (3.5-5.4); WHITE BLOOD COUNT 21.3 X10^3/uL (3.6-10.0)
--- NOTE | 2021-10-02 17:29 | RAD ---
HISTORYPT C/O WORSENING WEAKNESS; TROUBLE AMBULATING ANXIETY, HTN, RENAL DISEASE, NEUROGENIC BLADDER, GUILLAIN BARRE SX: KOFFI, NECK, BACK, KNEE SURGSTUDYCHEST, 1 VIEWCOMPARISONChest radiograph dated March 28, 2021.FINDINGSThe trachea is midline. The cardiac silhouette is unremarkable.The lungs are clear without focal infiltrate or effusion.The bony thorax is unremarkable.IMPRESSIONNo acute cardiopulmonary findings or changes.Electronically signed by: EVERTON CAMARA III (Oct 02, 2021 17:28:14)
[2021-10-02 17:37] LABS: ALBUMIN 2.6 g/dL (3.4-5.0); CALCIUM 8.5 mg/dL (8.5-10.1); CARBON DIOXIDE 26.3 mmol/L (21-32); COR CA(FOR HYPOALB) 9.6 mg/dL (8.5-10.1); CREATININE 1.99 mg/dL (0.55-1.02); TOTAL PROTEIN 6.7 g/dL (6.4-8.2)
[2021-10-02 17:39] LABS: BAND NEUTROPHILS % 1 % (0-10); PLATELET MORPHOLOGY COMMENT NORMAL (NORMAL)
[2021-10-02 17:43] LABS: LACTIC ACID 1.2 mmol/L (0.4-2.0)
[2021-10-02] MEDS ORDERED: ZOSYN VIAL 3.375 GRAMS 3.375 G in NS 100 ML IV + SPIKE MINIBAG* 100 ML IV ONE (18:12)
[2021-10-02] MEDS ORDERED: ZOSYN VIAL 3.375 GRAMS IV ONE (18:22)
[2021-10-02] MEDS ORDERED: NS 1,000 ML IV 1,000 ML ONE (18:23)
[2021-10-02] MEDS ORDERED: NS 100 ML IV + SPIKE MINIBAG* 100 ML IV ONE (18:23)
[2021-10-02] MEDS: NS 1,000 ML IV 1,000 ML IV SCH (18:27)
[2021-10-02] MEDS ORDERED: ZOSYN VIAL 3.375 GRAMS 3.375 G in NS 100 ML IV + SPIKE MINIBAG* 100 ML IV SCH (19:00)
--- NOTE | 2021-10-02 19:12 | DR.GENAD ---
HPI Time Seen Time Seen by Provider: 10/02/21 18:11 PCP Primary Care Physician: MARIAJOSE HINES HPI Comment HPI Comment: Pt accompanied by daughter .According to her pt was doing well before yesterday .was able to ambulate with walker .however since yesterday pt has not been eating and drinking been more confused and that this is differnt from what her normal mentation is .pt has garrido catheter in place and her urine is more cloudier than normal and that they have not been draining much urine from it .She has complained of some discomfort in the lower belly today Concerned daugher called in the ambulance and pt was brought to Er Complaint/Symptoms Chief Complaint Doctors Comments: not feeling well Chief Complaint:: PT STATES THAT SHE HAS BEEN FEELING PROGRESSIVELY MORE WEAK TODAY. FAMILY STATES THAT SHE HAS HAD MORE DIFFICULTY AMBULATING TODAY. PT IS NOTED TO HAVE AN INDWELLING CATHETER AND URINE IS NOTED TO BE VERY CLOUDY AND PALE COVID-19 Coronavirus risk:travel/contact w/high risk person: No Has patient experienced Coronavirus symptoms: No Nurses notes reviewed Nurses Notes Review: Yes Source History Provided: Patient and EMS Mode of Arrival Mode of Arrival: EMS Timing Onset of Chief Complaint: 10/02/21 Came on: Gradually Duration Duration: Constant Duration: Days Severity Severity: Moderate PMH PMH Past Medical History: Yes Past Medical History: Anxiety, Depression, GERD, Hypertension, Renal Disease and Sleep Apnea Past Medical History Comment: NEUROGENIC BLADDER, GUILLAN BARRE Past Surgical History: Yes Surgical History: Cholecystectomy and Ortho Surgery Past Surgical History Comment: NECK SURGERY, BACK SURGERY, KNEE SURGERY, CATARACT SURGERY Family History History of Family Medical Conditions: Yes Family Medical History: IA and Hypertension Social History Does patient currently use any type of tobacco product: Yes Have you used tobacco products in the last 12 months: Yes Type of Tobacco Use: Cigarettes Does any household member use tobacco: Yes Alcohol Use: None Do you use any recreational Drugs:: No Lives With: Family Lives Where: Home Travel Risk Coronavirus risk:travel/contact w/high risk person: No Has patient experienced Coronavirus symptoms: No Infectious screening In the last 2 months have you had wt loss of >10#?: NO Have you had fever, night sweats or hemotysis?: No Have you traveled outside the country in the last 6 months?: No Isolation: Standard ROS Review of Systems Constitutional: Weakness Eyes: No Symptoms Reported Respiratoy: No Symptoms Reported Cardiovascular: No Symptoms Reported Gastrointestinal/Abdominal: See HPI Genitourinary: Dysuria Musculoskeletal: No Symptoms Reported Endocrine: No Symptoms Reported PE Vital Signs Vitals: Temperature 99.0 F Pulse Rate 77 Respiratory Rate 22 Blood Pressure [Right Arm] 132/63 Blood Pressure 148/63 O2 Sat by Pulse Oximetry 98 General Limitations: No Limitations General Appearance: Alert, Anxious and Lethargic Head Head Exam: Normal Inspection, Atraumatic and Normocephalic Eyes Eye exam: PERRL and EOMI ENT ENT Exam: Mucous Membranes Dry Mouth Exam: Normal Inspection Neck Neck Exam: Normal Inspection and Full ROM Chest Chest Inspection: Normal Inspection and Symmetric Chest Wall Rise Respiratory Respiratory Exam: Normal Lung Sounds Bilat Respiratory Exam: Bilateral: Clear to Auscultation Cardiovascular Cardiovascular Exam: +S1 and +S2 Abdominal Exam Abdominal Exam: Normal Inspection, Normal Bowel Sounds, Tenderness and Other (garrido catheter with cloudy urine ) Neurologic Neurological Exam: Alert and Other (pt has wekaness in the lower ext due to underlying neurodegenerative disorder ) Skin Skin Exam: Normal Color MDM Differential Diagnosis Differential Diagnosis: urosepsis ,confusion ,indwelling garrido catheter COURSE Treatment Treatment: labs ,change garrido and send the tip for culture ROR Labs Reviewed Laboratory Results Reviewed?: Yes Result Diagrams: 10/02/21 17:09 10/02/21 17:09 Laboratory: WBC 21.3 X10^3/uL (3.6-10.0) H 10/02/21 17:09 RBC 4.56 X10^6/uL (3.5-5.4) 10/02/21 17:09 Hgb 13.2 g/dL (12.0-16.0) 10/02/21 17:09 Hct 39.7 % (36.0-47.0) 10/02/21 17:09 MCV 86.9 fL (80.0-100.0) 10/02/21 17:09 MCH 28.9 pg (27.0-34.0) 10/02/21 17:09 MCHC 33.2 g/dL (33.0-35.0) 10/02/21 17:09 RDW 15.0 % (11.6-16.5) 10/02/21 17:09 Plt Count 182 X10^3/uL (150.0-450.0) 10/02/21 17:09 Plt Count Comment Adequate (ADEQUATE) 10/02/21 17:09 MPV 10.2 fL (7.4-11.0) 10/02/21 17:09 Neut % (Auto) 91.3 % (42.0-75.0) H 10/02/21 17:09 Lymph % (Auto) 3.8 % (21.0-51.0) L 10/02/21 17:09 [facility] % (Auto) 4.5 % (0.0-13.0) 10/02/21 17:09 Eos % (Auto) 0.1 % (0.9-2.9) L 10/02/21 17:09 Baso % (Auto) 0.3 % (0.2-1.0) 10/02/21 17:09 Neut # (Auto) 19.5 x10^3/uL (2.2-4.8) H 10/02/21 17:09 Lymph # (Auto) 0.8 X10^3/uL (1.3-2.9) L 10/02/21 17:09 [facility] # (Auto) 1.0 x10^3/uL (0.3-0.8) H 10/02/21 17:09 Eos # (Auto) 0.0 x10^3/uL (0.0-0.2) 10/02/21 17:09 Baso # (Auto) 0.1 X10^3/uL (0.0-0.1) 10/02/21 17:09 Absolute Nucleated RBC 0.0 /100WBC 10/02/21 17:09 Total Counted 100 10/02/21 17:09 Neutrophils % (Manual) 91 % (39-76) H 10/02/21 17:09 Band Neutrophils % 1 % (0-10) 10/02/21 17:09 Lymphocytes % (Manual) 5 % (13-43) L 10/02/21 17:09 Monocytes % (Manual) 3 % (4-9) L 10/02/21 17:09 Plt Morphology Comment Normal (NORMAL) 10/02/21 17:09 RBC Morphology Normal (NORMAL) 10/02/21 17:09 Sodium 142 mmol/L (136-145) 10/02/21 17:09 Corrected Sodium 144 mmol/L (136-145) 10/02/21 17:09 Potassium 4.2 mmol/L (3.5-5.1) 10/02/21 17:09 Chloride 107 mmol/L (98-107) 10/02/21 17:09 Carbon Dioxide 26.3 mmol/L (21-32) 10/02/21 17:09 BUN 32 mg/dL (7-18) H 10/02/21 17:09 Creatinine 1.99 mg/dL (0.55-1.02) H 10/02/21 17:09 Est GFR (MDRD) Af Amer 32 (>60) L 10/02/21 17:09 Est GFR (MDRD) Non-Af 26 (>60) L 10/02/21 17:09 Glucose 187 mg/dL (65-99) H 10/02/21 17:09 Lactic Acid 1.2 mmol/L (0.4-2.0) 10/02/21 17:09 Calcium 8.5 mg/dL (8.5-10.1) 10/02/21 17:09 Corrected Calcium 9.6 mg/dL (8.5-10.1) 10/02/21 17:09 Total Bilirubin 0.30 mg/dL (0.2-1.0) 10/02/21 17:09 AST 16 Units/L (15-37) 10/02/21 17:09 ALT 15 Units/L (12-78) 10/02/21 17:09 Alkaline Phosphatase 75 Units/L (46-116) 10/02/21 17:09 Total Protein 6.7 g/dL (6.4-8.2) 10/02/21 17:09 Albumin 2.6 g/dL (3.4-5.0) L 10/02/21 17:09 Globulin 4.1 g/dL (2.5-4.5) 10/02/21 17:09 Albumin/Globulin Ratio 0.6 Ratio (1.1-2.1) L 10/02/21 17:09 Specimen Type Catherized urine 10/02/21 16:40 Urine Color Yellow (YELLOW) 10/02/21 16:40 Urine Appearance Cloudy (CLEAR) 10/02/21 16:40 Urine pH 6.0 (5.0 - 8.0) 10/02/21 16:40 Ur Specific Amo 1.015 (1.000-1.030) 10/02/21 16:40 Urine Protein 4+ (NEGATIVE) 10/02/21 16:40 Urine Glucose (UA) Negative (NEGATIVE) 10/02/21 16:40 Urine Ketones Negative (NEGATIVE) 10/02/21 16:40 Urine Occult Blood 5+ (NEGATIVE) 10/02/21 16:40 Urine Nitrite Positive (NEGATIVE) 10/02/21 16:40 Urine Bilirubin Negative (NEGATIVE) 10/02/21 16:40 Urine Urobilinogen Normal (NORMAL) 10/02/21 16:40 Ur Leukocyte Esterase 3+ (NEGATIVE) 10/02/21 16:40 Urine RBC 10-20 /HPF (0-3) A 10/02/21 16:40 Urine WBC Tntc /HPF (0-5) A 10/02/21 16:40 Ur Squamous Epith Cells Few /HPF (NEGATIVE) 10/02/21 16:40 Amorphous Sediment 1+ /HPF (NEGATIVE) 10/02/21 16:40 Urine Bacteria 3+ /HPF (NEGATIVE) 10/02/21 16:40 Hyaline Casts Few /LPF (NEGATIVE) 10/02/21 16:40 Urine Mucus Few /HPF (NEGATIVE) 10/02/21 16:40 Ur Culture Indicated? Yes/culture set up 10/02/21 16:40 SARS CoV-2 RNA Rapid CHRISTOPHER Negative (NEGATIVE) 10/02/21 17:55 Opioid Opioid Risk Tool Age (Khang box if 16-45): No History of Preadolescent Sexual Abuse: No Total: 0 Total Score Risk Category: Low Risk Copyright: [facility] predicting aberrant behaviors Diagnosis Discharge Problem: Garrido catheter in place, Dehydration Sepsis Qualifiers: Sepsis type: sepsis due to unspecified organism Sepsis acute organ dysfunction status: unspecified Qualified Code(s): A41.9 - Sepsis, unspecified organism Acute on chronic kidney failure Qualifiers: Acute renal failure type: unspecified Chronic kidney disease stage: stage 3 (moderate) Chronic kidney disease stage 3 subtype: stage 3b (GFR 30-44) Qualified Code(s): N17.9 - Acute kidney failure, unspecified ADDITIONAL NOTES Additional Notes Additional Notes: pt s case discussed with Dr Dumont .Pt will be admitted for urosepsis, acute on chronic renal failure
--- NOTE | 2021-10-02 19:32 | DR.GENAD ---
HPI Time Seen Time Seen by Provider: 10/02/21 18:11 PCP Primary Care Physician: MARIAJOSE HINES HPI Comment HPI Comment: Pt accomnied by daughter. According to her patient was well before 2 days ago.she was walking with walker .However pt noted to have decreased appetite ,increasd confusion ,complained of discomfort in her lower belly ,urine more cloudier and with decarseed urine output in her garrido catheter.Concerned daughter brought patient to ER by calling ambulance .Furthermore patient mentation was worse than her normal basline Complaint/Symptoms Chief Complaint Doctors Comments: not feeling well Chief Complaint:: PT STATES THAT SHE HAS BEEN FEELING PROGRESSIVELY MORE WEAK TODAY. FAMILY STATES THAT SHE HAS HAD MORE DIFFICULTY AMBULATING TODAY. PT IS N OTED TO HAVE AN INDWELLING CATHETER AND URINE IS NOTED TO BE VERY CLOUDY AND PALE COVID-19 Coronavirus risk:travel/contact w/high risk person: No Has patient experienced Coronavirus symptoms: No Nurses notes reviewed Nurses Notes Review: Yes Source History Provided: Patient and EMS Mode of Arrival Mode of Arrival: EMS Timing Onset of Chief Complaint: 10/02/21 Came on: Gradually Duration Duration: Constant Duration: Days Severity Severity: Moderate PMH PMH Past Medical History: Yes Past Medical History: Anxiety, Depression, GERD, Hypertension, Renal Disease and Sleep Apnea Past Medical History Comment: NEUROGENIC BLADDER, GUILLAN BARRE Past Surgical History: Yes Surgical History: Cholecystectomy and Ortho Surgery Past Surgical History Comment: NECK SURGERY, BACK SURGERY, KNEE SURGERY, CATARACT SURGERY Family History History of Family Medical Conditions: Yes Family Medical History: [place] and Hypertension Social History Does patient currently use any type of tobacco product: Yes Have you used tobacco products in the last 12 months: Yes Type of Tobacco Use: Cigarettes Does any household member use tobacco: Yes Alcohol Use: None Do you use any recreational Drugs:: No Lives With: Family Lives Where: Home Travel Risk Coronavirus risk:travel/contact w/high risk person: No Has patient experienced Coronavirus symptoms: No Infectious screening In the last 2 months have you had wt loss of >10#?: NO Have you had fever, night sweats or hemotysis?: No Have you traveled outside the country in the last 6 months?: No Isolation: Standard ROS Review of Systems Constitutional: Malaise and Fatigue Eyes: No Symptoms Reported ENTM: No Symptoms Reported Respiratoy: No Symptoms Reported Cardiovascular: No Symptoms Reported Gastrointestinal/Abdominal: Abdominal Pain Genitourinary: Dysuria and Other (Garrido catheter in place ) Neurological: Other (has neurodegenerative disorder ) Hematologic/Lymphatic: No Symptoms Reported Endocrine: No Symptoms Reported PE Vital Signs Vitals: Temperature 99.0 F Pulse Rate 77 Respiratory Rate 22 Blood Pressure [Right Arm] 132/63 Blood Pressure 148/63 O2 Sat by Pulse Oximetry 98 General Limitations: No Limitations General Appearance: Alert and Lethargic Head Head Exam: Normal Inspection, Atraumatic and Normocephalic Eyes Eye exam: PERRL and EOMI ENT ENT Exam: Normal Exam and Mucous Membranes Dry Mouth Exam: Normal Inspection Neck Neck Exam: Normal Inspection, Full ROM and Trachea Midline Chest Chest Inspection: Normal Inspection and Symmetric Chest Wall Rise Respiratory Respiratory Exam: Normal Lung Sounds Bilat Respiratory Exam: Bilateral: Clear to Auscultation Cardiovascular Cardiovascular Exam: +S1 and +S2 Abdominal Exam Abdominal Exam: Normal Bowel Sounds, Soft, Tenderness and Other (suprapubic soreness .Garrido catheter draining cloudier urine noted ) Abdominal Tenderness: Suprapubic Extremities Extremities Exam: Other Neurologic Neurological Exam: Alert and Other (weakness of left lower ext v right chronic ) Skin Skin Exam: Normal Color MDM Differential Diagnosis Differential Diagnosis: urosepsis,indwelling garrido catheter ,hx of neurodegenerative disorder COURSE Treatment Treatment: labs ,urinalysis ,changed garrido cather with tip sent for culture ROR Labs Reviewed Laboratory Results Reviewed?: Yes Result Diagrams: 10/02/21 17:09 10/02/21 17:09 Laboratory: WBC 21.3 X10^3/uL (3.6-10.0) H 10/02/21 17:09 RBC 4.56 X10^6/uL (3.5-5.4) 10/02/21 17:09 Hgb 13.2 g/dL (12.0-16.0) 10/02/21 17:09 Hct 39.7 % (36.0-47.0) 10/02/21 17:09 MCV 86.9 fL (80.0-100.0) 10/02/21 17:09 MCH 28.9 pg (27.0-34.0) 10/02/21 17:09 MCHC 33.2 g/dL (33.0-35.0) 10/02/21 17:09 RDW 15.0 % (11.6-16.5) 10/02/21 17:09 Plt Count 182 X10^3/uL (150.0-450.0) 10/02/21 17:09 Plt Count Comment Adequate (ADEQUATE) 10/02/21 17:09 MPV 10.2 fL (7.4-11.0) 10/02/21 17:09 Neut % (Auto) 91.3 % (42.0-75.0) H 10/02/21 17:09 Lymph % (Auto) 3.8 % (21.0-51.0) L 10/02/21 17:09 [place] % (Auto) 4.5 % (0.0-13.0) 10/02/21 17:09 Eos % (Auto) 0.1 % (0.9-2.9) L 10/02/21 17:09 Baso % (Auto) 0.3 % (0.2-1.0) 10/02/21 17:09 Neut # (Auto) 19.5 x10^3/uL (2.2-4.8) H 10/02/21 17:09 Lymph # (Auto) 0.8 X10^3/uL (1.3-2.9) L 10/02/21 17:09 [place] # (Auto) 1.0 x10^3/uL (0.3-0.8) H 10/02/21 17:09 Eos # (Auto) 0.0 x10^3/uL (0.0-0.2) 10/02/21 17:09 Baso # (Auto) 0.1 X10^3/uL (0.0-0.1) 10/02/21 17:09 Absolute Nucleated RBC 0.0 /100WBC 10/02/21 17:09 Total Counted 100 10/02/21 17:09 Neutrophils % (Manual) 91 % (39-76) H 10/02/21 17:09 Band Neutrophils % 1 % (0-10) 10/02/21 17:09 Lymphocytes % (Manual) 5 % (13-43) L 10/02/21 17:09 Monocytes % (Manual) 3 % (4-9) L 10/02/21 17:09 Plt Morphology Comment Normal (NORMAL) 10/02/21 17:09 RBC Morphology Normal (NORMAL) 10/02/21 17:09 Sodium 142 mmol/L (136-145) 10/02/21 17:09 Corrected Sodium 144 mmol/L (136-145) 10/02/21 17:09 Potassium 4.2 mmol/L (3.5-5.1) 10/02/21 17:09 Chloride 107 mmol/L (98-107) 10/02/21 17:09 Carbon Dioxide 26.3 mmol/L (21-32) 10/02/21 17:09 BUN 32 mg/dL (7-18) H 10/02/21 17:09 Creatinine 1.99 mg/dL (0.55-1.02) H 10/02/21 17:09 Est GFR (MDRD) Af Amer 32 (>60) L 10/02/21 17:09 Est GFR (MDRD) Non-Af 26 (>60) L 10/02/21 17:09 Glucose 187 mg/dL (65-99) H 10/02/21 17:09 Lactic Acid 1.2 mmol/L (0.4-2.0) 10/02/21 17:09 Calcium 8.5 mg/dL (8.5-10.1) 10/02/21 17:09 Corrected Calcium 9.6 mg/dL (8.5-10.1) 10/02/21 17:09 Total Bilirubin 0.30 mg/dL (0.2-1.0) 10/02/21 17:09 AST 16 Units/L (15-37) 10/02/21 17:09 ALT 15 Units/L (12-78) 10/02/21 17:09 Alkaline Phosphatase 75 Units/L (46-116) 10/02/21 17:09 Total Protein 6.7 g/dL (6.4-8.2) 10/02/21 17:09 Albumin 2.6 g/dL (3.4-5.0) L 10/02/21 17:09 Globulin 4.1 g/dL (2.5-4.5) 10/02/21 17:09 Albumin/Globulin Ratio 0.6 Ratio (1.1-2.1) L 10/02/21 17:09 Specimen Type Catherized urine 10/02/21 16:40 Urine Color Yellow (YELLOW) 10/02/21 16:40 Urine Appearance Cloudy (CLEAR) 10/02/21 16:40 Urine pH 6.0 (5.0 - 8.0) 10/02/21 16:40 Ur Specific [place] 1.015 (1.000-1.030) 10/02/21 16:40 Urine Protein 4+ (NEGATIVE) 10/02/21 16:40 Urine Glucose (UA) Negative (NEGATIVE) 10/02/21 16:40 Urine Ketones Negative (NEGATIVE) 10/02/21 16:40 Urine Occult Blood 5+ (NEGATIVE) 10/02/21 16:40 Urine Nitrite Positive (NEGATIVE) 10/02/21 16:40 Urine Bilirubin Negative (NEGATIVE) 10/02/21 16:40 Urine Urobilinogen Normal (NORMAL) 10/02/21 16:40 Ur Leukocyte Esterase 3+ (NEGATIVE) 10/02/21 16:40 Urine RBC 10-20 /HPF (0-3) A 10/02/21 16:40 Urine WBC Tntc /HPF (0-5) A 10/02/21 16:40 Ur Squamous Epith Cells Few /HPF (NEGATIVE) 10/02/21 16:40 Amorphous Sediment 1+ /HPF (NEGATIVE) 10/02/21 16:40 Urine Bacteria 3+ /HPF (NEGATIVE) 10/02/21 16:40 Hyaline Casts Few /LPF (NEGATIVE) 10/02/21 16:40 Urine Mucus Few /HPF (NEGATIVE) 10/02/21 16:40 Ur Culture Indicated? Yes/culture set up 10/02/21 16:40 SARS CoV-2 RNA Rapid CHRISTOPHER Negative (NEGATIVE) 10/02/21 17:55 Opioid Opioid Risk Tool Age (Khang box if 16-45): No History of Preadolescent Sexual Abuse: No Total: 0 Total Score Risk Category: Low Risk Copyright: [facility] predicting aberrant behaviors Diagnosis Discharge Problem: Garrido catheter in place, Dehydration Sepsis Qualifiers: Sepsis type: sepsis due to unspecified organism Sepsis acute organ dysfunction status: unspecified Qualified Code(s): A41.9 - Sepsis, unspecified organism Acute on chronic kidney failure Qualifiers: Acute renal failure type: unspecified Chronic kidney disease stage: stage 3 (moderate) Chronic kidney disease stage 3 subtype: stage 3b (GFR 30-44) Qualified Code(s): N17.9 - Acute kidney failure, unspecified ADDITIONAL NOTES Additional Notes Additional Notes: spoke with Dr Dumont.Agreed who accepted patient for admission for urosepsis,dehydration,acute on chronic renal failure
[2021-10-02] MEDS: ZOSYN VIAL 3.375 GRAMS 3.375 G in NS 100 ML IV + SPIKE MINIBAG* 100 ML IV SCH (19:59)
[2021-10-03] MEDS: NS 1,000 ML IV 1,000 ML IV SCH ×3 (04:56→20:26)
[2021-10-03] MEDS: ZOSYN VIAL 3.375 GRAMS 3.375 G in NS 100 ML IV + SPIKE MINIBAG* 100 ML IV SCH ×3 (05:00→22:59)
[2021-10-03 05:32] LABS: ALBUMIN 2.1 g/dL (3.4-5.0); CARBON DIOXIDE 22.6 mmol/L (21-32); COR CA(FOR HYPOALB) 9.5 mg/dL (8.5-10.1); CREATININE 2.05 mg/dL (0.55-1.02); TOTAL PROTEIN 5.8 g/dL (6.4-8.2)
[2021-10-03 05:33] LABS: BASOPHILS % (AUTO) 0.2 % (0.2-1.0); HEMATOCRIT 33.4 % (36.0-47.0); LYMPHOCYTES % (AUTO) 4.6 % (21.0-51.0); MEAN CORPUSCULAR HEMOGLOBIN 28.9 pg (27.0-34.0); MEAN CORPUSCULAR HGB CONC 33.5 g/dL (33.0-35.0); MEAN CORPUSCULAR VOLUME 86.3 fL (80.0-100.0); MEAN PLATELET VOLUME 11.1 fL (7.4-11.0); MONOCYTES # (AUTO) 1.4 x10^3/uL (0.3-0.8); MONOCYTES % (AUTO) 6.2 % (0.0-13.0); NEUTROPHILS # (AUTO) 19.6 x10^3/uL (2.2-4.8); RED BLOOD COUNT 3.87 X10^6/uL (3.5-5.4); RED CELL DISTRIBUTION WIDTH 15.5 % (11.6-16.5)
[2021-10-03 06:08] LABS: HEMOGLOBIN 11.2 g/dL (12.0-16.0)
[2021-10-03 06:09] LABS: BAND NEUTROPHILS % 2 % (0-10); PLATELET MORPHOLOGY COMMENT NORMAL (NORMAL)
[2021-10-03] MEDS ORDERED: LEXAPRO ONE (08:30)
[2021-10-03] MEDS: NAMENDA TAB 10 MG PO SCH (08:35)
[2021-10-03] MEDS: LEXAPRO PO SCH (08:35)
[2021-10-03] MEDS ORDERED: NS 1,000 ML IV 1,000 ML IV ONE (11:06)
[2021-10-03] MEDS: LYRICA CAP 75 mg PO SCH (11:38)
[2021-10-03] MEDS: PEPCID TAB 40 MG PO SCH ×2 (11:38→20:27)
[2021-10-03] MEDS: VIBRAMYCIN 100 MG in D5W 250 ML IV 250 ML IV SCH ×2 (12:45→20:27)
[2021-10-03] MEDS: KLONOPIN TAB 0.5 MG PO SCH (20:27)
[2021-10-04] MEDS: NS 1,000 ML IV 1,000 ML IV SCH ×4 (02:49→19:11)
[2021-10-04 05:34] LABS: BASOPHILS # (AUTO) 0.1 X10^3/uL (0.0-0.1); BASOPHILS % (AUTO) 0.4 % (0.2-1.0); EOSINOPHILS # (AUTO) 0.1 x10^3/uL (0.0-0.2); EOSINOPHILS % (AUTO) 0.3 % (0.9-2.9); HEMATOCRIT 31.4 % (36.0-47.0); HEMOGLOBIN 10.6 g/dL (12.0-16.0); LYMPHOCYTES # (AUTO) 1.5 X10^3/uL (1.3-2.9); MEAN CORPUSCULAR HEMOGLOBIN 29.2 pg (27.0-34.0); MEAN CORPUSCULAR HGB CONC 33.8 g/dL (33.0-35.0); MEAN CORPUSCULAR VOLUME 86.4 fL (80.0-100.0); MEAN PLATELET VOLUME 10.7 fL (7.4-11.0); MONOCYTES # (AUTO) 0.9 x10^3/uL (0.3-0.8); MONOCYTES % (AUTO) 5.5 % (0.0-13.0); NEUTROPHILS # (AUTO) 14.2 x10^3/uL (2.2-4.8); NEUTROPHILS % (AUTO) 84.8 % (42.0-75.0); RED BLOOD COUNT 3.64 X10^6/uL (3.5-5.4); RED CELL DISTRIBUTION WIDTH 15.3 % (11.6-16.5); WHITE BLOOD COUNT 16.7 X10^3/uL (3.6-10.0)
[2021-10-04 05:45] LABS: ALBUMIN 1.8 g/dL (3.4-5.0); CARBON DIOXIDE 21.5 mmol/L (21-32); COR CA(FOR HYPOALB) 9.8 mg/dL (8.5-10.1); CREATININE 1.72 mg/dL (0.55-1.02); TOTAL PROTEIN 5.6 g/dL (6.4-8.2)
[2021-10-04] MEDS ORDERED: POTASSIUM CHLORIDE LIQ 20 MEQ UDC PO PRN (06:01)
[2021-10-04] MEDS ORDERED: MICRO K EXTEN CAP 10 MEQ PO PRN (06:01)
[2021-10-04] MEDS ORDERED: POTASSIUM CHL 60 MEQ/NS 0.45% 500 ML IV PRN (06:01)
[2021-10-04] MEDS ORDERED: KLOR-CON PO PRN (06:01)
[2021-10-04] MEDS ORDERED: K-RIDER 10 MEQ/NS 100 ML 10 MEQ/100 ML BAG IV PRN (06:01)
[2021-10-04] MEDS ORDERED: POTASSIUM CHL 40 MEQ/NS 0.45% 500 ML IV PRN (06:01)
[2021-10-04] MEDS: ZOSYN VIAL 3.375 GRAMS 3.375 G in NS 100 ML IV + SPIKE MINIBAG* 100 ML IV SCH ×3 (06:02→22:58)
[2021-10-04] MEDS ORDERED: LEXAPRO ONE (08:08)
[2021-10-04] MEDS: PEPCID TAB 40 MG PO SCH ×2 (08:39→20:48)
[2021-10-04] MEDS: NAMENDA TAB 10 MG PO SCH (08:39)
[2021-10-04] MEDS: LEXAPRO PO SCH (08:40)
[2021-10-04] MEDS: K-DUR TAB 20 MEQ PO PRN (08:40)
[2021-10-04] MEDS: LYRICA CAP 75 mg PO SCH (08:40)
[2021-10-04] MEDS: VIBRAMYCIN 100 MG in D5W 250 ML IV 250 ML IV SCH ×2 (08:42→20:48)
[2021-10-04] MEDS: MAGNESIUM SULFATE 1 GRAM/100 mL PREMIX 1 G/100 ML BAG IV PRN ×2 (09:44→14:00)
--- NOTE | 2021-10-04 10:09 | PCM.PROG ---
Progress Note - Progress Note for Day of Date of Exam: 10/04/21 - Subjective Subjective: WAS ADMITTED FOR TREATMENT OF UROSEPSIS, ACUTE ON CHRONIC RENAL FAILURE. TODAY, SHE IS ALERT AND ORIENTED, LYING IN BED ON MORNING ROUNDS. SHE CONTINUES WITH COMPLAINTS OF WEAKNESS AND DECREASED APPETITE SINCE ADMISSION. SHE ALSO CONTINUES WITH TENDERNESS TO THE LOWER ABDOMEN. ON EXA MINATION, HEART IS REGULAR IN RATE AND RHYTHM. BILATERAL LUNGS NOTED WITH DIMINISHED LUNG SOUNDS THROUGHOUT. ABDOMEN IS ROUND, SOFT, AND NON-TENDER WITH LOWER ABDOMEN TENDERNESS TO PALPATION. A HURD CATHETER IS NOTED TO BEDSIDE DRAINAGE. 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 HER VITALS THIS MORNING ARE: 98.9-70-26-93%-123/60. LABS WERE OBTAINED. ABNORMAL LAB VALUES INCLUDE THE FOLLOWING: WBC 16.7, HGB 10.6, HCT 31.4, PLT COUNT 141, POTASSIUM 3.4, CHLORIDE 109, BUN 25, CREATININE 1.72, GLUCOSE 141, CALCIUM 8.0, MAGNESIUM 1.6, TOTAL PROTEIN 5.6, ALBUMIN 1.8. URINE CULTURE IS PENDING. SHE IS CURRENTLY RECEIVING NORMAL SALINE AT 125ML/HR, DOXYCYCLINE 100MG IV Q12H, ZOSYN 3.375G IV Q8H, CLONAZEPAM 0.5MG PO HS, LEXAPRO 10MG PO DAILY, PEPCID 40MG PO BID, NAMENDA 10MG PO DAILY, LYRICA 75MG PO DAILY, AND THE POTASSIUM AND MAGNESIUM PROTOCOLS. WE WILL CONTINUE WITH CURRENT PLAN OF CARE TODAY. OTHERWISE, WE PLAN TO FOLLOW UP WITH AM LABS AND CONTINUE TO MONITOR. TIME SPENT ON CLINICAL ASSESSMENT, REVIEWING LABS AND IMAGING, DECISION MAKING, AND DOCUMENTATION WAS GREATER THAN 45 MINUTES. - Past Medical Family Social History Past Med/Fam/Surg Hx: No changes since H&P Allergies: Allergies ciprofloxacin [From Cipro HC] Adverse Reaction (Severe, Verified 03/28/21 21:54) ANAPHALEXIS REACTION hydrocortisone [From Cipro HC] Adverse Reaction (Severe, Verified 03/28/21 21:54) ANAPHALEXIS REACTION acetaminophen [From Lorcet (hydrocodone)] Adverse Reaction (Mild, Verified 03/28/21 21:54) RASH baclofen Adverse Reaction (Mild, Verified 03/28/21 21:54) RASH hydrocodone [From Lorcet (hydrocodone)] Adverse Reaction (Mild, Verified 03/28/21 21:54) RASH tramadol Adverse Reaction (Mild, Verified 03/28/21 21:54) RASH - Review of Systems ROS: No change since H&P - Vital Signs and I&O's Vital Signs: Temperature 98.9 F Pulse Rate [Radial] 70 Pulse Rate 82 Respiratory Rate 26 Blood Pressure [Right Arm] 123/60 Blood Pressure 116/54 O2 Sat by Pulse Oximetry 93 Intake and Output: Intake & Output 10/01/21 10/02/21 10/03/21 10/04/21 11:59 11:59 11:59 11:59 Intake Total 2040 / 2040 5186 / 5186 Output Total 500 / 500 2215 / 2215 Balance 1541 / 1541 2971 / 2971 - Physical Exam Oriented: Normal Eyes: Normal Ear: Normal Nose: Normal Throat: Normal Respiratory: Generalized, Diminished Cardiovascular: Normal : Other (CHRONIC INDWELLING HURD) Auscultation: Bowel Sounds: Normal Palpation: Normal Tenderness: Suprapubic, Mild Skin: Decreased Turgur Musculoskeletal: Normal Psychiatric: Normal Mood Description: Calm Affect: Normal Speech Pattern: Clear, Appropriate - Laboratory and Diagnostics Result Diagrams: 10/05/21 05:16 10/05/21 05:16 Labs: 10/02/21 17:55 Catheter Tip - Other - Preliminary 10/02/21 16:40 Urine,Catheterized Urine Culture - Final Laboratory WBC 16.7 X10^3/uL (3.6-10.0) H 10/04/21 05:13 RBC 3.64 X10^6/uL (3.5-5.4) 10/04/21 05:13 Hgb 10.6 g/dL (12.0-16.0) L 10/04/21 05:13 Hct 31.4 % (36.0-47.0) L 10/04/21 05:13 MCV 86.4 fL (80.0-100.0) 10/04/21 05:13 MCH 29.2 pg (27.0-34.0) 10/04/21 05:13 MCHC 33.8 g/dL (33.0-35.0) 10/04/21 05:13 RDW 15.3 % (11.6-16.5) 10/04/21 05:13 Plt Count 141 X10^3/uL (150.0-450.0) L 10/04/21 05:13 Plt Count Comment Adequate (ADEQUATE) 10/03/21 03:52 MPV 10.7 fL (7.4-11.0) 10/04/21 05:13 Neut % (Auto) 84.8 % (42.0-75.0) H 10/04/21 05:13 Lymph % (Auto) 9.0 % (21.0-51.0) L 10/04/21 05:13 [place] % (Auto) 5.5 % (0.0-13.0) 10/04/21 05:13 Eos % (Auto) 0.3 % (0.9-2.9) L 10/04/21 05:13 Baso % (Auto) 0.4 % (0.2-1.0) 10/04/21 05:13 Neut # (Auto) 14.2 x10^3/uL (2.2-4.8) H 10/04/21 05:13 Lymph # (Auto) 1.5 X10^3/uL (1.3-2.9) 10/04/21 05:13 [place] # (Auto) 0.9 x10^3/uL (0.3-0.8) H 10/04/21 05:13 Eos # (Auto) 0.1 x10^3/uL (0.0-0.2) 10/04/21 05:13 Baso # (Auto) 0.1 X10^3/uL (0.0-0.1) 10/04/21 05:13 Absolute Nucleated RBC 0.0 /100WBC 10/04/21 05:13 Total Counted 100 10/03/21 03:52 Neutrophils % (Manual) 91 % (39-76) H 10/03/21 03:52 Band Neutrophils % 2 % (0-10) 10/03/21 03:52 Lymphocytes % (Manual) 4 % (13-43) L 10/03/21 03:52 Monocytes % (Manual) 3 % (4-9) L 10/03/21 03:52 Plt Morphology Comment Normal (NORMAL) 10/03/21 03:52 RBC Morphology Normal (NORMAL) 10/03/21 03:52 Sodium 141 mmol/L (136-145) 10/04/21 05:13 Corrected Sodium 142 mmol/L (136-145) 10/04/21 05:13 Potassium 3.4 mmol/L (3.5-5.1) L 10/04/21 05:13 Chloride 109 mmol/L (98-107) H 10/04/21 05:13 Carbon Dioxide 21.5 mmol/L (21-32) 10/04/21 05:13 BUN 25 mg/dL (7-18) H 10/04/21 05:13 Creatinine 1.72 mg/dL (0.55-1.02) H 10/04/21 05:13 Est GFR (MDRD) Af Amer 37 (>60) L 10/04/21 05:13 Est GFR (MDRD) Non-Af 31 (>60) L 10/04/21 05:13 Glucose 141 mg/dL (65-99) H 10/04/21 05:13 POC Glucose (mg/dL) 200 mg/dL (65-99) H 10/03/21 19:44 Lactic Acid 1.2 mmol/L (0.4-2.0) 10/02/21 17:09 Calcium 8.0 mg/dL (8.5-10.1) L 10/04/21 05:13 Corrected Calcium 9.8 mg/dL (8.5-10.1) 10/04/21 05:13 Magnesium 1.6 mg/dL (1.7-2.9) L 10/04/21 05:13 Total Bilirubin 0.40 mg/dL (0.2-1.0) 10/04/21 05:13 AST 17 Units/L (15-37) 10/04/21 05:13 ALT 13 Units/L (12-78) 10/04/21 05:13 Alkaline Phosphatase 59 Units/L (46-116) 10/04/21 05:13 Total Protein 5.6 g/dL (6.4-8.2) L 10/04/21 05:13 Albumin 1.8 g/dL (3.4-5.0) L 10/04/21 05:13 Globulin 3.8 g/dL (2.5-4.5) 10/04/21 05:13 Albumin/Globulin Ratio 0.5 Ratio (1.1-2.1) L 10/04/21 05:13 Specimen Type Catherized urine 10/02/21 16:40 Urine Color Yellow (YELLOW) 10/02/21 16:40 Urine Appearance Cloudy (CLEAR) 10/02/21 16:40 Urine pH 6.0 (5.0 - 8.0) 10/02/21 16:40 Ur Specific [place] 1.015 (1.000-1.030) 10/02/21 16:40 Urine Protein 4+ (NEGATIVE) 10/02/21 16:40 Urine Glucose (UA) Negative (NEGATIVE) 10/02/21 16:40 Urine Ketones Negative (NEGATIVE) 10/02/21 16:40 Urine Occult Blood 5+ (NEGATIVE) 10/02/21 16:40 Urine Nitrite Positive (NEGATIVE) 10/02/21 16:40 Urine Bilirubin Negative (NEGATIVE) 10/02/21 16:40 Urine Urobilinogen Normal (NORMAL) 10/02/21 16:40 Ur Leukocyte Esterase 3+ (NEGATIVE) 10/02/21 16:40 Urine RBC 10-20 /HPF (0-3) A 10/02/21 16:40 Urine WBC Tntc /HPF (0-5) A 10/02/21 16:40 Ur Squamous Epith Cells Few /HPF (NEGATIVE) 10/02/21 16:40 Amorphous Sediment 1+ /HPF (NEGATIVE) 10/02/21 16:40 Urine Bacteria 3+ /HPF (NEGATIVE) 10/02/21 16:40 Hyaline Casts Few /LPF (NEGATIVE) 10/02/21 16:40 Urine Mucus Few /HPF (NEGATIVE) 10/02/21 16:40 Ur Culture Indicated? Yes/culture set up 10/02/21 16:40 SARS CoV-2 RNA Rapid CHRISTOPHER Negative (NEGATIVE) 10/02/21 17:55 - Plan (1) Sepsis Status: Acute Qualifiers: Sepsis type: sepsis due to unspecified organism Sepsis acute organ dysfunction status: unspecified Qualified Code(s): A41.9 - Sepsis, unspecified organism Plan: NORMAL SALINE AT 125ML/HR, DOXYCYCLINE 100MG IV Q12H, ZOSYN 3.375G IV Q8H, CLONAZEPAM 0.5MG PO HS, LEXAPRO 10MG PO DAILY, PEPCID 40MG PO BID, NAMENDA 10MG PO DAILY, LYRICA 75MG PO DAILY, AND THE POTASSIUM AND MAGNESIUM PROTOCOLS. (2) Urinary tract infection Status: Acute Qualifiers: Indwelling urinary catheter type: indwelling urethral catheter Encounter type: initial encounter (3) Acute on chronic kidney failure Status: Acute Qualifiers: Acute renal failure type: unspecified Chronic kidney disease stage: stage 3 (moderate) Chronic kidney disease stage 3 subtype: stage 3b (GFR 30-44) Qualified Code(s): N17.9 - Acute kidney failure, unspecified; N18.32 - Chronic kidney disease, stage 3b (4) Dehydration Status: Acute
[2021-10-04] MEDS: ALBUMIN HUMAN 25%- 100 ML 100 ML IV SCH (16:00)
[2021-10-04] MEDS: TYLENOL 325 MG TAB PO PRN (19:12)
[2021-10-04] MEDS: KLONOPIN TAB 0.5 MG PO SCH (20:47)
[2021-10-05] MEDS: NS 1,000 ML IV 1,000 ML IV SCH ×4 (03:30→19:16)
[2021-10-05 05:33] LABS: BASOPHILS % (AUTO) 0.2 % (0.2-1.0); EOSINOPHILS # (AUTO) 0.2 x10^3/uL (0.0-0.2); HEMATOCRIT 32.7 % (36.0-47.0); HEMOGLOBIN 11.2 g/dL (12.0-16.0); LYMPHOCYTES # (AUTO) 1.1 X10^3/uL (1.3-2.9); MEAN CORPUSCULAR HEMOGLOBIN 29.5 pg (27.0-34.0); MEAN CORPUSCULAR HGB CONC 34.3 g/dL (33.0-35.0); MEAN PLATELET VOLUME 10.4 fL (7.4-11.0); MONOCYTES # (AUTO) 0.6 x10^3/uL (0.3-0.8); MONOCYTES % (AUTO) 6.5 % (0.0-13.0); NEUTROPHILS # (AUTO) 7.5 x10^3/uL (2.2-4.8); NEUTROPHILS % (AUTO) 79.3 % (42.0-75.0); RED BLOOD COUNT 3.81 X10^6/uL (3.5-5.4); RED CELL DISTRIBUTION WIDTH 15.2 % (11.6-16.5); WHITE BLOOD COUNT 9.5 X10^3/uL (3.6-10.0)
[2021-10-05 05:40] LABS: ALBUMIN 2.2 g/dL (3.4-5.0); CALCIUM 8.5 mg/dL (8.5-10.1); CARBON DIOXIDE 23.8 mmol/L (21-32); COR CA(FOR HYPOALB) 9.9 mg/dL (8.5-10.1); CREATININE 1.56 mg/dL (0.55-1.02); TOTAL PROTEIN 6.2 g/dL (6.4-8.2)
[2021-10-05] MEDS: ZOSYN VIAL 3.375 GRAMS 3.375 G in NS 100 ML IV + SPIKE MINIBAG* 100 ML IV SCH (05:56)
[2021-10-05] MEDS ORDERED: LEXAPRO ONE (08:01)
[2021-10-05] MEDS: LEXAPRO PO SCH (08:16)
[2021-10-05] MEDS: ALBUMIN HUMAN 25%- 100 ML 100 ML IV SCH (08:16)
[2021-10-05] MEDS: NAMENDA TAB 10 MG PO SCH (08:16)
[2021-10-05] MEDS: VIBRAMYCIN 100 MG in D5W 250 ML IV 250 ML IV SCH (08:17)
[2021-10-05] MEDS: LYRICA CAP 75 mg PO SCH (08:17)
[2021-10-05] MEDS: K-DUR TAB 20 MEQ PO PRN (08:17)
[2021-10-05] MEDS: PEPCID TAB 40 MG PO SCH ×2 (08:17→21:35)
--- NOTE | 2021-10-05 09:02 | PCM.PROG ---
Progress Note - Progress Note for Day of Date of Exam: 10/05/21 - Subjective Subjective: WAS ADMITTED FOR TREATMENT OF UROSEPSIS, ACUTE ON CHRONIC RENAL FAILURE. TODAY, SHE IS ALERT AND ORIENTED, LYING IN BED ON MORNING ROUNDS. SHE CONTINUES WITH COMPLAINTS OF WEAKNESS AND DECREASED APPETITE SINCE ADMISSION. ON EXAMINATION, HEART IS REGULAR IN RATE AND RHYTHM. BILATERAL LUNGS NOTED WITH DIMINISHED LUNG SOUNDS THROUGHOUT. ABDOMEN IS ROUND, SOFT, AND NON- TENDER WITH LOWER ABDOMEN TENDERNESS TO PALPATION. A HURD CATHETER IS NOTED TO BEDSIDE DRAINAGE. 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 HER VITALS THIS MORNING ARE: 98.2-63-20-93%-187/83. LABS WERE OBTAINED. ABNORMAL LAB VALUES INCLUDE THE FOLLOWING: HGB 11.2, HCT 32.7, PLT COUNT 139, CHLORIDE 111, BUN 22, CREATININE 1.56, GLUCOSE 145, TOTAL PROTEIN 6.2, ALBUMIN 2.2. URINE CULTURE IS PENDING. SHE IS CURRENTLY RECEIVING NORMAL SALINE AT 125ML/HR, DOXYCYCLINE 100MG IV Q12H, ZOSYN 3.375G IV Q8H, CLONAZEPAM 0.5MG PO HS, LEXAPRO 10MG PO DAILY, PEPCID 40MG PO BID, NAMENDA 10MG PO DAILY, LYRICA 75MG PO DAILY, AND THE POTASSIUM AND MAGNESIUM PROTOCOLS. PHYSICAL THERAPY IS WORKING WITH PATIENT DAILY. WE WILL CONTINUE WITH CURRENT PLAN OF CARE TODAY. OTHERWISE, WE PLAN TO FOLLOW UP WITH AM LABS AND CONTINUE TO MONITOR. TIME SPENT ON CLINICAL ASSESSMENT, REVIEWING LABS AND IMAGING, DECISION MAKING, AND DOCUMENTATION WAS GREATER THAN 45 MINUTES. - Past Medical Family Social History Past Med/Fam/Surg Hx: No changes since H&P Allergies: Allergies ciprofloxacin [From Cipro HC] Adverse Reaction (Severe, Verified 03/28/21 21:54) ANAPHALEXIS REACTION hydrocortisone [From Cipro HC] Adverse Reaction (Severe, Verified 03/28/21 21:54) ANAPHALEXIS REACTION acetaminophen [From Lorcet (hydrocodone)] Adverse Reaction (Mild, Verified 08/08 21:54) RASH baclofen Adverse Reaction (Mild, Verified 03/28/21 21:54) RASH hydrocodone [From Lorcet (hydrocodone)] Adverse Reaction (Mild, Verified 03/28/21 21:54) RASH tramadol Adverse Reaction (Mild, Verified 03/28/21 21:54) RASH - Review of Systems ROS: No change since H&P - Vital Signs and I&O's Vital Signs: Temperature 98.2 F Pulse Rate [Radial] 63 Pulse Rate 82 Respiratory Rate 20 Blood Pressure [Right Arm] 187/83 Blood Pressure 116/54 O2 Sat by Pulse Oximetry 93 Intake and Output: Intake & Output 10/02/21 10/03/21 10/04/21 10/05/21 11:59 11:59 11:59 11:59 Intake Total 204 / 204 5186 / 5186 5739 / 5739 Output Total 500 / 500 2215 / 2215 4900 / 4900 Balance 1541 / 1541 2971 / 2971 839 / 839 - Physical Exam Oriented: Normal Eyes: Normal Ear: Normal Nose: Normal Throat: Normal Respiratory: Generalized, Diminished Cardiovascular: Normal : Other (CHRONIC INDWELLING HURD) Auscultation: Bowel Sounds: Normal Palpation: Normal Tenderness: Suprapubic, Mild Skin: Decreased Turgur Musculoskeletal: Normal Psychiatric: Normal Mood Description: Calm Affect: Normal Speech Pattern: Clear, Appropriate - Laboratory and Diagnostics Result Diagrams: 10/05/21 05:16 10/05/21 05:16 Labs: 10/02/21 17:55 Catheter Tip - Other - Preliminary 10/02/21 16:40 Urine,Catheterized Urine Culture - Final Laboratory WBC 9.5 X10^3/uL (3.6-10.0) 10/05/21 05:16 RBC 3.81 X10^6/uL (3.5-5.4) 10/05/21 05:16 Hgb 11.2 g/dL (12.0-16.0) L 10/05/21 05:16 Hct 32.7 % (36.0-47.0) L 10/05/21 05:16 MCV 86.0 fL (80.0-100.0) 10/05/21 05:16 MCH 29.5 pg (27.0-34.0) 10/05/21 05:16 MCHC 34.3 g/dL (33.0-35.0) 10/05/21 05:16 RDW 15.2 % (11.6-16.5) 10/05/21 05:16 Plt Count 139 X10^3/uL (150.0-450.0) L 10/05/21 05:16 Plt Count Comment Adequate (ADEQUATE) 10/03/21 03:52 MPV 10.4 fL (7.4-11.0) 10/05/21 05:16 Neut % (Auto) 79.3 % (42.0-75.0) H 10/05/21 05:16 Lymph % (Auto) 12.0 % (21.0-51.0) L 10/05/21 05:16 [place] % (Auto) 6.5 % (0.0-13.0) 10/05/21 05:16 Eos % (Auto) 2.0 % (0.9-2.9) 10/05/21 05:16 Baso % (Auto) 0.2 % (0.2-1.0) 10/05/21 05:16 Neut # (Auto) 7.5 x10^3/uL (2.2-4.8) H 10/05/21 05:16 Lymph # (Auto) 1.1 X10^3/uL (1.3-2.9) L 10/05/21 05:16 [place] # (Auto) 0.6 x10^3/uL (0.3-0.8) 10/05/21 05:16 Eos # (Auto) 0.2 x10^3/uL (0.0-0.2) 10/05/21 05:16 Baso # (Auto) 0.0 X10^3/uL (0.0-0.1) 10/05/21 05:16 Absolute Nucleated RBC 0.0 /100WBC 10/05/21 05:16 Total Counted 100 10/03/21 03:52 Neutrophils % (Manual) 91 % (39-76) H 10/03/21 03:52 Band Neutrophils % 2 % (0-10) 10/03/21 03:52 Lymphocytes % (Manual) 4 % (13-43) L 10/03/21 03:52 Monocytes % (Manual) 3 % (4-9) L 10/03/21 03:52 Plt Morphology Comment Normal (NORMAL) 10/03/21 03:52 RBC Morphology Normal (NORMAL) 10/03/21 03:52 Sodium 144 mmol/L (136-145) 10/05/21 05:16 Corrected Sodium 145 mmol/L (136-145) 10/05/21 05:16 Potassium 3.7 mmol/L (3.5-5.1) 10/05/21 05:16 Chloride 111 mmol/L (98-107) H 10/05/21 05:16 Carbon Dioxide 23.8 mmol/L (21-32) 10/05/21 05:16 BUN 22 mg/dL (7-18) H 10/05/21 05:16 Creatinine 1.56 mg/dL (0.55-1.02) H 10/05/21 05:16 Est GFR (MDRD) Af Amer 42 (>60) L 10/05/21 05:16 Est GFR (MDRD) Non-Af 34 (>60) L 10/05/21 05:16 Glucose 145 mg/dL (65-99) H 10/05/21 05:16 POC Glucose (mg/dL) 140 mg/dL (65-99) H 10/05/21 05:30 Lactic Acid 1.2 mmol/L (0.4-2.0) 10/02/21 17:09 Calcium 8.5 mg/dL (8.5-10.1) 10/05/21 05:16 Corrected Calcium 9.9 mg/dL (8.5-10.1) 10/05/21 05:16 Magnesium 2.0 mg/dL (1.7-2.9) 10/05/21 05:16 Total Bilirubin 0.40 mg/dL (0.2-1.0) 10/05/21 05:16 AST 17 Units/L (15-37) 10/05/21 05:16 ALT 16 Units/L (12-78) 10/05/21 05:16 Alkaline Phosphatase 58 Units/L (46-116) 10/05/21 05:16 Total Protein 6.2 g/dL (6.4-8.2) L 10/05/21 05:16 Albumin 2.2 g/dL (3.4-5.0) L 10/05/21 05:16 Globulin 4.0 g/dL (2.5-4.5) 10/05/21 05:16 Albumin/Globulin Ratio 0.6 Ratio (1.1-2.1) L 10/05/21 05:16 Specimen Type Catherized urine 10/02/21 16:40 Urine Color Yellow (YELLOW) 10/02/21 16:40 Urine Appearance Cloudy (CLEAR) 10/02/21 16:40 Urine pH 6.0 (5.0 - 8.0) 10/02/21 16:40 Ur Specific [place] 1.015 (1.000-1.030) 10/02/21 16:40 Urine Protein 4+ (NEGATIVE) 10/02/21 16:40 Urine Glucose (UA) Negative (NEGATIVE) 10/02/21 16:40 Urine Ketones Negative (NEGATIVE) 10/02/21 16:40 Urine Occult Blood 5+ (NEGATIVE) 10/02/21 16:40 Urine Nitrite Positive (NEGATIVE) 10/02/21 16:40 Urine Bilirubin Negative (NEGATIVE) 10/02/21 16:40 Urine Urobilinogen Normal (NORMAL) 10/02/21 16:40 Ur Leukocyte Esterase 3+ (NEGATIVE) 10/02/21 16:40 Urine RBC 10-20 /HPF (0-3) A 10/02/21 16:40 Urine WBC Tntc /HPF (0-5) A 10/02/21 16:40 Ur Squamous Epith Cells Few /HPF (NEGATIVE) 10/02/21 16:40 Amorphous Sediment 1+ /HPF (NEGATIVE) 10/02/21 16:40 Urine Bacteria 3+ /HPF (NEGATIVE) 10/02/21 16:40 Hyaline Casts Few /LPF (NEGATIVE) 10/02/21 16:40 Urine Mucus Few /HPF (NEGATIVE) 10/02/21 16:40 Ur Culture Indicated? Yes/culture set up 10/02/21 16:40 SARS CoV-2 RNA Rapid CHRISTOPHER Negative (NEGATIVE) 10/02/21 17:55 - Plan (1) Sepsis Status: Acute Qualifiers: Sepsis type: sepsis due to unspecified organism Sepsis acute organ dysfunction status: unspecified Qualified Code(s): A41.9 - Sepsis, unspecified organism Plan: NORMAL SALINE AT 125ML/HR, DOXYCYCLINE 100MG IV Q12H, ZOSYN 3.375G IV Q8H, CLONAZEPAM 0.5MG PO HS, LEXAPRO 10MG PO DAILY, PEPCID 40MG PO BID, NAMENDA 10MG PO DAILY, LYRICA 75MG PO DAILY, AND THE POTASSIUM AND MAGNESIUM PROTOCOLS. (2) Urinary tract infection Status: Acute Qualifiers: Indwelling urinary catheter type: indwelling urethral catheter Encounter type: initial encounter (3) Acute on chronic kidney failure Status: Acute Qualifiers: Acute renal failure type: unspecified Chronic kidney disease stage: stage 3 (moderate) Chronic kidney disease stage 3 subtype: stage 3b (GFR 30-44) Qualified Code(s): N17.9 - Acute kidney failure, unspecified; N18.32 - Chronic kidney disease, stage 3b (4) Dehydration Status: Acute
[2021-10-05] MEDS: LOVENOX INJ 30 MG SYR SC SCH (09:33)
[2021-10-05] MEDS: INVanz INJ 1 GRAM VIAL 1 G in NS 100 ML IV + SPIKE MINIBAG* 100 ML IV SCH (10:15)
[2021-10-05] MEDS: KLONOPIN TAB 0.5 MG PO SCH (21:34)
[2021-10-06] MEDS: NS 1,000 ML IV 1,000 ML IV SCH ×4 (03:50→21:08)
[2021-10-06 06:14] LABS: BASOPHILS % (AUTO) 0.5 % (0.2-1.0); EOSINOPHILS # (AUTO) 0.2 x10^3/uL (0.0-0.2); EOSINOPHILS % (AUTO) 2.5 % (0.9-2.9); HEMOGLOBIN 10.2 g/dL (12.0-16.0); LYMPHOCYTES # (AUTO) 1.7 X10^3/uL (1.3-2.9); LYMPHOCYTES % (AUTO) 22.1 % (21.0-51.0); MEAN CORPUSCULAR HEMOGLOBIN 29.6 pg (27.0-34.0); MEAN CORPUSCULAR HGB CONC 34.1 g/dL (33.0-35.0); MEAN CORPUSCULAR VOLUME 86.9 fL (80.0-100.0); MEAN PLATELET VOLUME 10.9 fL (7.4-11.0); MONOCYTES # (AUTO) 0.8 x10^3/uL (0.3-0.8); MONOCYTES % (AUTO) 10.7 % (0.0-13.0); NEUTROPHILS % (AUTO) 64.2 % (42.0-75.0); RED BLOOD COUNT 3.45 X10^6/uL (3.5-5.4); RED CELL DISTRIBUTION WIDTH 14.9 % (11.6-16.5); WHITE BLOOD COUNT 7.7 X10^3/uL (3.6-10.0)
[2021-10-06 06:35] LABS: ALBUMIN 2.2 g/dL (3.4-5.0); CALCIUM 8.1 mg/dL (8.5-10.1); CARBON DIOXIDE 20.4 mmol/L (21-32); COR CA(FOR HYPOALB) 9.5 mg/dL (8.5-10.1); CREATININE 1.5 mg/dL (0.55-1.02); TOTAL PROTEIN 5.8 g/dL (6.4-8.2)
[2021-10-06] MEDS ORDERED: LEXAPRO ONE (08:21)
[2021-10-06] MEDS: ALBUMIN HUMAN 25%- 100 ML 100 ML IV SCH (09:04)
[2021-10-06] MEDS: LEXAPRO PO SCH (09:05)
[2021-10-06] MEDS: LOVENOX INJ 30 MG SYR SC SCH (09:05)
[2021-10-06] MEDS: PEPCID TAB 20 MG PO SCH (09:05)
[2021-10-06] MEDS: LYRICA CAP 75 mg PO SCH (09:06)
[2021-10-06] MEDS: NAMENDA TAB 10 MG PO SCH (09:06)
[2021-10-06] MEDS ORDERED: MILK OF MAGNESIA PO PRN (09:17)
[2021-10-06] MEDS: COLACE CAP 100 MG PO SCH ×2 (09:29→20:26)
[2021-10-06] MEDS: INVanz INJ 1 GRAM VIAL 1 G in NS 100 ML IV + SPIKE MINIBAG* 100 ML IV SCH (09:58)
--- NOTE | 2021-10-06 10:49 | PCM.PROG ---
Progress Note - Progress Note for Day of Date of Exam: 10/06/21 - Subjective Subjective: WAS ADMITTED FOR TREATMENT OF UROSEPSIS, ACUTE ON CHRONIC RENAL FAILURE. TODAY, SHE IS ALERT AND ORIENTED, LYING IN BED ON MORNING ROUNDS. SHE CONTINUES WITH COMPLAINTS OF WEAKNESS AND DECREASED APPETITE SINCE ADMISSION. ON EXAMINATION, HEART IS REGULAR IN RATE AND RHYTHM. BILATERAL LUNGS NOTED WITH DIMINISHED LUNG SOUNDS THROUGHOUT. ABDOMEN IS ROUND, SOFT, AND NON- TENDER WITH LOWER ABDOMEN TENDERNESS TO PALPATION. A HURD CATHETER IS NOTED TO BEDSIDE DRAINAGE. 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 HER VITALS THIS MORNING ARE: 99.1-60-20-94%-193/76. LABS WERE OBTAINED. ABNORMAL LAB VALUES INCLUDE THE FOLLOWING: RBC 3.45, HGB 10.2, HCT 30.0, PLT COUNT 141, CHLO RIDE 110, CARBON DIOXIDE 20.4, BUN 21, CREATININE 1.50, GLUCOSE 116, CALCIUM 8.0, TOTAL PROTEIN 5.8, ALBUMIN 2.2. URINE CULTURE REVEALED GROWTH OF E.COLI AND ENTEROCOCCUS FAECALIS. SHE IS CURRENTLY RECEIVING NORMAL SALINE AT 125ML/HR, INVANZ 1G IV DAILY, CLONAZEPAM 0.5MG PO HS, LEXAPRO 10MG PO DAILY, PEPCID 40MG PO BID, NAMENDA 10MG PO DAILY, LYRICA 75MG PO DAILY, AND THE POTASSIUM AND MAGNESIUM PROTOCOLS. PHYSICAL THERAPY IS WORKING WITH PATIENT DAILY. WE WILL DISCONTINUE THE INVANZ AND START DOXYCYCLINE 100MG IV BID TODAY. OTHERWISE, WE PLAN TO FOLLOW UP WITH AM LABS AND CONTINUE TO MONITOR. TIME SPENT ON CLINICAL ASSESSMENT, REVIEWING LABS AND IMAGING, DECISION MAKING, AND DOCUMENTATION WAS GREATER THAN 45 MINUTES. - Past Medical Family Social History Past Med/Fam/Surg Hx: No changes since H&P Allergies: Allergies ciprofloxacin [From Cipro HC] Adverse Reaction (Severe, Verified 03/28/21 21:54) ANAPHALEXIS REACTION hydrocortisone [From Cipro HC] Adverse Reaction (Severe, Verified 03/28/21 21:54) ANAPHALEXIS REACTION acetaminophen [From Lorcet (hydrocodone)] Adverse Reaction (Mild, Verified 03/28/21 21:54) RASH baclofen Adverse Reaction (Mild, Verified 03/28/21 21:54) RASH hydrocodone [From Lorcet (hydrocodone)] Adverse Reaction (Mild, Verified 03/28/21 21:54) RASH tramadol Adverse Reaction (Mild, Verified 03/28/21 21:54) RASH - Review of Systems ROS: No change since H&P - Vital Signs and I&O's Vital Signs: Temperature 99.1 F Pulse Rate [Radial] 60 Pulse Rate 82 Respiratory Rate 20 Blood Pressure [Right Arm] 193/76 Blood Pressure 116/54 O2 Sat by Pulse Oximetry 94 Intake and Output: Intake & Output 10/03/21 10/04/21 10/05/21 10/06/21 11:59 11:59 11:59 11:59 Intake Total 2040 / 2040 5186 / 5186 5739 / 5739 5634 / 5634 Output Total 500 / 500 2215 / 2215 4900 / 4900 2700 / 2700 Balance 1541 / 1541 2971 / 2971 839 / 839 2934 / 2934 - Physical Exam Oriented: Normal Eyes: Normal Ear: Normal Nose: Normal Throat: Normal Respiratory: Generalized, Diminished Cardiovascular: Normal : Other (CHRONIC INDWELLING HURD) Auscultation: Bowel Sounds: Normal Tenderness: Suprapubic, Mild Skin: Decreased Turgur Musculoskeletal: Normal Psychiatric: Normal Mood Description: Calm Affect: Normal Speech Pattern: Clear, Appropriate - Laboratory and Diagnostics Result Diagrams: 10/06/21 05:20 10/06/21 05:20 Labs: 10/04/21 09:50 Urine,Clean Catch Urine Culture - Final 10/02/21 17:55 Catheter Tip - Other - Final Escherichia Coli Enterococcus Faecalis 10/02/21 16:40 Urine,Catheterized Urine Culture - Final Laboratory WBC 7.7 X10^3/uL (3.6-10.0) 10/06/21 05:20 RBC 3.45 X10^6/uL (3.5-5.4) L 10/06/21 05:20 Hgb 10.2 g/dL (12.0-16.0) L 10/06/21 05:20 Hct 30.0 % (36.0-47.0) L 10/06/21 05:20 MCV 86.9 fL (80.0-100.0) 10/06/21 05:20 MCH 29.6 pg (27.0-34.0) 10/06/21 05:20 MCHC 34.1 g/dL (33.0-35.0) 10/06/21 05:20 RDW 14.9 % (11.6-16.5) 10/06/21 05:20 Plt Count 141 X10^3/uL (150.0-450.0) L 10/06/21 05:20 Plt Count Comment Adequate (ADEQUATE) 10/03/21 03:52 MPV 10.9 fL (7.4-11.0) 10/06/21 05:20 Neut % (Auto) 64.2 % (42.0-75.0) 10/06/21 05:20 Lymph % (Auto) 22.1 % (21.0-51.0) 10/06/21 05:20 [place] % (Auto) 10.7 % (0.0-13.0) 10/06/21 05:20 Eos % (Auto) 2.5 % (0.9-2.9) 10/06/21 05:20 Baso % (Auto) 0.5 % (0.2-1.0) 10/06/21 05:20 Neut # (Auto) 5.0 x10^3/uL (2.2-4.8) H 10/06/21 05:20 Lymph # (Auto) 1.7 X10^3/uL (1.3-2.9) 10/06/21 05:20 [place] # (Auto) 0.8 x10^3/uL (0.3-0.8) 10/06/21 05:20 Eos # (Auto) 0.2 x10^3/uL (0.0-0.2) 10/06/21 05:20 Baso # (Auto) 0.0 X10^3/uL (0.0-0.1) 10/06/21 05:20 Absolute Nucleated RBC 0.1 /100WBC 10/06/21 05:20 Total Counted 100 10/03/21 03:52 Neutrophils % (Manual) 91 % (39-76) H 10/03/21 03:52 Band Neutrophils % 2 % (0-10) 10/03/21 03:52 Lymphocytes % (Manual) 4 % (13-43) L 10/03/21 03:52 Monocytes % (Manual) 3 % (4-9) L 10/03/21 03:52 Plt Morphology Comment Normal (NORMAL) 10/03/21 03:52 RBC Morphology Normal (NORMAL) 10/03/21 03:52 Sodium 141 mmol/L (136-145) 10/06/21 05:20 Corrected Sodium 141 mmol/L (136-145) 10/06/21 05:20 Potassium 4.0 mmol/L (3.5-5.1) 10/06/21 05:20 Chloride 110 mmol/L (98-107) H 10/06/21 05:20 Carbon Dioxide 20.4 mmol/L (21-32) L 10/06/21 05:20 BUN 21 mg/dL (7-18) H 10/06/21 05:20 Creatinine 1.50 mg/dL (0.55-1.02) H 10/06/21 05:20 Est GFR (MDRD) Af Amer 44 (>60) L 10/06/21 05:20 Est GFR (MDRD) Non-Af 36 (>60) L 10/06/21 05:20 Glucose 116 mg/dL (65-99) H 10/06/21 05:20 POC Glucose (mg/dL) 120 mg/dL (65-99) H 10/06/21 05:02 Lactic Acid 1.2 mmol/L (0.4-2.0) 10/02/21 17:09 Calcium 8.1 mg/dL (8.5-10.1) L 10/06/21 05:20 Corrected Calcium 9.5 mg/dL (8.5-10.1) 10/06/21 05:20 Magnesium 2.0 mg/dL (1.7-2.9) 10/05/21 05:16 Total Bilirubin 0.20 mg/dL (0.2-1.0) 10/06/21 05:20 AST 18 Units/L (15-37) 10/06/21 05:20 ALT 14 Units/L (12-78) 10/06/21 05:20 Alkaline Phosphatase 56 Units/L (46-116) 10/06/21 05:20 Total Protein 5.8 g/dL (6.4-8.2) L 10/06/21 05:20 Albumin 2.2 g/dL (3.4-5.0) L 10/06/21 05:20 Globulin 3.6 g/dL (2.5-4.5) 10/06/21 05:20 Albumin/Globulin Ratio 0.6 Ratio (1.1-2.1) L 10/06/21 05:20 Specimen Type Catherized urine 10/02/21 16:40 Urine Color Yellow (YELLOW) 10/02/21 16:40 Urine Appearance Cloudy (CLEAR) 10/02/21 16:40 Urine pH 6.0 (5.0 - 8.0) 10/02/21 16:40 Ur Specific [place] 1.015 (1.000-1.030) 10/02/21 16:40 Urine Protein 4+ (NEGATIVE) 10/02/21 16:40 Urine Glucose (UA) Negative (NEGATIVE) 10/02/21 16:40 Urine Ketones Negative (NEGATIVE) 10/02/21 16:40 Urine Occult Blood 5+ (NEGATIVE) 10/02/21 16:40 Urine Nitrite Positive (NEGATIVE) 10/02/21 16:40 Urine Bilirubin Negative (NEGATIVE) 10/02/21 16:40 Urine Urobilinogen Normal (NORMAL) 10/02/21 16:40 Ur Leukocyte Esterase 3+ (NEGATIVE) 10/02/21 16:40 Urine RBC 10-20 /HPF (0-3) A 10/02/21 16:40 Urine WBC Tntc /HPF (0-5) A 10/02/21 16:40 Ur Squamous Epith Cells Few /HPF (NEGATIVE) 10/02/21 16:40 Amorphous Sediment 1+ /HPF (NEGATIVE) 10/02/21 16:40 Urine Bacteria 3+ /HPF (NEGATIVE) 10/02/21 16:40 Hyaline Casts Few /LPF (NEGATIVE) 10/02/21 16:40 Urine Mucus Few /HPF (NEGATIVE) 10/02/21 16:40 Ur Culture Indicated? Yes/culture set up 10/02/21 16:40 SARS CoV-2 RNA Rapid CHRISTOPHER Negative (NEGATIVE) 10/02/21 17:55 - Plan (1) Sepsis Status: Acute Qualifiers: Sepsis type: Escherichia coli Sepsis acute organ dysfunction status: unspecified Qualified Code(s): A41.51 - Sepsis due to Escherichia coli [E. coli] Plan: NORMAL SALINE AT 125ML/HR, DOXYCYCLINE 100MG IV Q12H, CLONAZEPAM 0.5MG PO HS, LEXAPRO 10MG PO DAILY, PEPCID 40MG PO BID, NAMENDA 10MG PO DAILY, LYRICA 75MG PO DAILY, AND THE POTASSIUM AND MAGNESIUM PROTOCOLS. (2) Urinary tract infection Status: Acute Qualifiers: Indwelling urinary catheter type: indwelling urethral catheter Encounter type: initial encounter (3) Acute on chronic kidney failure Status: Acute Qualifiers: Acute renal failure type: unspecified Chronic kidney disease stage: stage 3 (moderate) Chronic kidney disease stage 3 subtype: stage 3b (GFR 30-44) Qualified Code(s): N17.9 - Acute kidney failure, unspecified; N18.32 - Chronic kidney disease, stage 3b (4) Dehydration Status: Acute
[2021-10-06] MEDS: VIBRAMYCIN 100 MG in D5W 250 ML IV 250 ML IV SCH ×2 (11:22→20:27)
[2021-10-06] MEDS ORDERED: COZAAR PO SCH (18:00)
[2021-10-06] MEDS: KLONOPIN TAB 0.5 MG PO SCH (20:26)
[2021-10-07] MEDS: NS 1,000 ML IV 1,000 ML IV SCH ×3 (02:27→16:45)
[2021-10-07 06:18] LABS: BASOPHILS # (AUTO) 0.1 X10^3/uL (0.0-0.1); BASOPHILS % (AUTO) 0.8 % (0.2-1.0); EOSINOPHILS # (AUTO) 0.2 x10^3/uL (0.0-0.2); EOSINOPHILS % (AUTO) 2.4 % (0.9-2.9); HEMATOCRIT 29.6 % (36.0-47.0); HEMOGLOBIN 10.3 g/dL (12.0-16.0); LYMPHOCYTES # (AUTO) 1.9 X10^3/uL (1.3-2.9); LYMPHOCYTES % (AUTO) 23.5 % (21.0-51.0); MEAN CORPUSCULAR HEMOGLOBIN 29.8 pg (27.0-34.0); MEAN CORPUSCULAR HGB CONC 34.7 g/dL (33.0-35.0); MEAN CORPUSCULAR VOLUME 85.9 fL (80.0-100.0); MEAN PLATELET VOLUME 10.3 fL (7.4-11.0); MONOCYTES % (AUTO) 12.1 % (0.0-13.0); NEUTROPHILS % (AUTO) 61.2 % (42.0-75.0); RED BLOOD COUNT 3.44 X10^6/uL (3.5-5.4); RED CELL DISTRIBUTION WIDTH 15.1 % (11.6-16.5); WHITE BLOOD COUNT 8.2 X10^3/uL (3.6-10.0)
[2021-10-07 06:32] LABS: ALBUMIN 2.3 g/dL (3.4-5.0); CALCIUM 8.4 mg/dL (8.5-10.1); CARBON DIOXIDE 23.3 mmol/L (21-32); COR CA(FOR HYPOALB) 9.8 mg/dL (8.5-10.1); CREATININE 1.26 mg/dL (0.55-1.02); TOTAL PROTEIN 5.9 g/dL (6.4-8.2)
[2021-10-07] MEDS ORDERED: LEXAPRO ONE (08:39)
[2021-10-07] MEDS: ALBUMIN HUMAN 25%- 100 ML 100 ML IV SCH (08:45)
[2021-10-07] MEDS: LYRICA CAP 75 mg PO SCH (08:55)
[2021-10-07] MEDS: LEXAPRO PO SCH (08:55)
[2021-10-07] MEDS: LOVENOX INJ 30 MG SYR SC SCH (08:55)
[2021-10-07] MEDS: PEPCID TAB 20 MG PO SCH (08:56)
[2021-10-07] MEDS: NAMENDA TAB 10 MG PO SCH (08:56)
--- NOTE | 2021-10-07 09:17 | PCM.PROG ---
Progress Note - Progress Note for Day of Date of Exam: 10/07/21 - Subjective Subjective: WAS ADMITTED FOR TREATMENT OF UROSEPSIS, ACUTE ON CHRONIC RENAL FAILURE. TODAY, SHE IS ALERT AND ORIENTED, LYING IN BED ON MORNING ROUNDS. SHE CONTINUES WITH COMPLAINTS OF WEAKNESS AND DECREASED APPETITE SINCE ADMISSION. ON EXAMINATION, HEART IS REGULAR IN RATE AND RHYTHM. BILATERAL LUNGS NOTED WITH DIMINISHED LUNG SOUNDS THROUGHOUT. ABDOMEN IS ROUND, SOFT, AND NON- TENDER WITH LOWER ABDOMEN TENDERNESS TO PALPATION. A HURD CATHETER IS NOTED TO BEDSIDE DRAINAGE. 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 HER VITALS THIS MORNING ARE: 97.7-57-18-94%-174/72. LABS WERE OBTAINED. ABNORMAL LAB VALUES INCLUDE THE FOLLOWING: RBC 3.44, HGB 10.3, HCT 29.6, CHLORIDE 110, BUN 2 1, CREATININE 1.23, GLUCOSE 118, CALCIUM 8.4, TOTAL PROTEIN 5.9, ALBUMIN 2.3. URINE CULTURE REVEALED GROWTH OF E.COLI AND ENTEROCOCCUS FAECALIS. SHE IS CURRENTLY RECEIVING NORMAL SALINE AT 125ML/HR, DOXYCYCLINE 100MG IV BID, CLONAZEPAM 0.5MG PO HS, LEXAPRO 10MG PO DAILY, PEPCID 40MG PO BID, NAMENDA 10MG PO DAILY, LYRICA 75MG PO DAILY, LOSARTAN 50MG PO DAILY, AND THE POTASSIUM AND MAGNESIUM PROTOCOLS. PHYSICAL THERAPY IS WORKING WITH PATIENT DAILY. WE WILL INCREASE LOSARTAN TO 100MG PO DAILY TODAY DUE TO INCREASED BLOOD PRESSURE. OTHERWISE, WE PLAN TO FOLLOW UP WITH AM LABS AND CONTINUE TO MONITOR. TIME SPENT ON CLINICAL ASSESSMENT, REVIEWING LABS AND IMAGING, DECISION MAKING, AND DOCUMENTATION WAS GREATER THAN 45 MINUTES. - Past Medical Family Social History Past Med/Fam/Surg Hx: No changes since H&P Allergies: Allergies ciprofloxacin [From Cipro HC] Adverse Reaction (Severe, Verified 03/28/21 21:54) ANAPHALEXIS REACTION hydrocortisone [From Cipro HC] Adverse Reaction (Severe, Verified 03/28/21 21:54) ANAPHALEXIS REACTION acetaminophen [From Lorcet (hydrocodone)] Adverse Reaction (Mild, Verified 03/28/21 21:54) RASH baclofen Adverse Reaction (Mild, Verified 03/28/21 21:54) RASH hydrocodone [From Lorcet (hydrocodone)] Adverse Reaction (Mild, Verified 03/28/21 21:54) RASH tramadol Adverse Reaction (Mild, Verified 03/28/21 21:54) RASH - Review of Systems ROS: No change since H&P - Vital Signs and I&O's Vital Signs: Temperature 97.7 F Pulse Rate [Radial] 57 Pulse Rate 82 Respiratory Rate 18 Blood Pressure [Left Arm] 174/72 Blood Pressure [Right Arm] 189/77 Blood Pressure 116/54 O2 Sat by Pulse Oximetry 94 Intake and Output: Intake & Output 10/04/21 10/05/21 10/06/21 10/07/21 11:59 11:59 11:59 11:59 Intake Total 5186 / 5186 5739 / 5739 5634 / 5634 5473 / 5473 Output Total 2215 / 2215 4900 / 4900 2700 / 2700 2980 / 2980 Balance 2971 / 2971 839 / 839 2934 / 2934 2493 / 2493 - Physical Exam Oriented: Normal Eyes: Normal Ear: Normal Nose: Normal Throat: Normal Respiratory: Generalized, Diminished Cardiovascular: Normal : Other (CHRONIC INDWELLING HURD) Auscultation: Bowel Sounds: Normal Tenderness: Suprapubic, Mild Skin: Decreased Turgur Musculoskeletal: Normal Psychiatric: Normal Mood Description: Calm Affect: Normal Speech Pattern: Clear, Appropriate - Laboratory and Diagnostics Result Diagrams: 10/07/21 05:54 10/07/21 05:54 Labs: 10/04/21 09:50 Urine,Clean Catch Urine Culture - Final 10/02/21 17:55 Catheter Tip - Other - Final Escherichia Coli Enterococcus Faecalis 10/02/21 16:40 Urine,Catheterized Urine Culture - Final Laboratory WBC 8.2 X10^3/uL (3.6-10.0) 10/07/21 05:54 RBC 3.44 X10^6/uL (3.5-5.4) L 10/07/21 05:54 Hgb 10.3 g/dL (12.0-16.0) L 10/07/21 05:54 Hct 29.6 % (36.0-47.0) L 10/07/21 05:54 MCV 85.9 fL (80.0-100.0) 10/07/21 05:54 MCH 29.8 pg (27.0-34.0) 10/07/21 05:54 MCHC 34.7 g/dL (33.0-35.0) 10/07/21 05:54 RDW 15.1 % (11.6-16.5) 10/07/21 05:54 Plt Count 153 X10^3/uL (150.0-450.0) 10/07/21 05:54 Plt Count Comment Adequate (ADEQUATE) 10/03/21 03:52 MPV 10.3 fL (7.4-11.0) 10/07/21 05:54 Neut % (Auto) 61.2 % (42.0-75.0) 10/07/21 05:54 Lymph % (Auto) 23.5 % (21.0-51.0) 10/07/21 05:54 [place] % (Auto) 12.1 % (0.0-13.0) 10/07/21 05:54 Eos % (Auto) 2.4 % (0.9-2.9) 10/07/21 05:54 Baso % (Auto) 0.8 % (0.2-1.0) 10/07/21 05:54 Neut # (Auto) 5.0 x10^3/uL (2.2-4.8) H 10/07/21 05:54 Lymph # (Auto) 1.9 X10^3/uL (1.3-2.9) 10/07/21 05:54 [place] # (Auto) 1.0 x10^3/uL (0.3-0.8) H 10/07/21 05:54 Eos # (Auto) 0.2 x10^3/uL (0.0-0.2) 10/07/21 05:54 Baso # (Auto) 0.1 X10^3/uL (0.0-0.1) 10/07/21 05:54 Absolute Nucleated RBC 0.0 /100WBC 10/07/21 05:54 Total Counted 100 10/03/21 03:52 Neutrophils % (Manual) 91 % (39-76) H 10/03/21 03:52 Band Neutrophils % 2 % (0-10) 10/03/21 03:52 Lymphocytes % (Manual) 4 % (13-43) L 10/03/21 03:52 Monocytes % (Manual) 3 % (4-9) L 10/03/21 03:52 Plt Morphology Comment Normal (NORMAL) 10/03/21 03:52 RBC Morphology Normal (NORMAL) 10/03/21 03:52 Sodium 143 mmol/L (136-145) 10/07/21 05:54 Corrected Sodium 143 mmol/L (136-145) 10/07/21 05:54 Potassium 4.0 mmol/L (3.5-5.1) 10/07/21 05:54 Chloride 110 mmol/L (98-107) H 10/07/21 05:54 Carbon Dioxide 23.3 mmol/L (21-32) 10/07/21 05:54 BUN 21 mg/dL (7-18) H 10/07/21 05:54 Creatinine 1.26 mg/dL (0.55-1.02) H 10/07/21 05:54 Est GFR (MDRD) Af Amer 53 (>60) L 10/07/21 05:54 Est GFR (MDRD) Non-Af 44 (>60) L 10/07/21 05:54 Glucose 118 mg/dL (65-99) H 10/07/21 05:54 POC Glucose (mg/dL) 120 mg/dL (65-99) H 10/07/21 05:19 Lactic Acid 1.2 mmol/L (0.4-2.0) 10/02/21 17:09 Calcium 8.4 mg/dL (8.5-10.1) L 10/07/21 05:54 Corrected Calcium 9.8 mg/dL (8.5-10.1) 10/07/21 05:54 Magnesium 2.0 mg/dL (1.7-2.9) 10/05/21 05:16 Total Bilirubin 0.30 mg/dL (0.2-1.0) 10/07/21 05:54 AST 17 Units/L (15-37) 10/07/21 05:54 ALT 17 Units/L (12-78) 10/07/21 05:54 Alkaline Phosphatase 57 Units/L (46-116) 10/07/21 05:54 Total Protein 5.9 g/dL (6.4-8.2) L 10/07/21 05:54 Albumin 2.3 g/dL (3.4-5.0) L 10/07/21 05:54 Globulin 3.6 g/dL (2.5-4.5) 10/07/21 05:54 Albumin/Globulin Ratio 0.6 Ratio (1.1-2.1) L 10/07/21 05:54 Specimen Type Catherized urine 10/02/21 16:40 Urine Color Yellow (YELLOW) 10/02/21 16:40 Urine Appearance Cloudy (CLEAR) 10/02/21 16:40 Urine pH 6.0 (5.0 - 8.0) 10/02/21 16:40 Ur Specific [place] 1.015 (1.000-1.030) 10/02/21 16:40 Urine Protein 4+ (NEGATIVE) 10/02/21 16:40 Urine Glucose (UA) Negative (NEGATIVE) 10/02/21 16:40 Urine Ketones Negative (NEGATIVE) 10/02/21 16:40 Urine Occult Blood 5+ (NEGATIVE) 10/02/21 16:40 Urine Nitrite Positive (NEGATIVE) 10/02/21 16:40 Urine Bilirubin Negative (NEGATIVE) 10/02/21 16:40 Urine Urobilinogen Normal (NORMAL) 10/02/21 16:40 Ur Leukocyte Esterase 3+ (NEGATIVE) 10/02/21 16:40 Urine RBC 10-20 /HPF (0-3) A 10/02/21 16:40 Urine WBC Tntc /HPF (0-5) A 10/02/21 16:40 Ur Squamous Epith Cells Few /HPF (NEGATIVE) 10/02/21 16:40 Amorphous Sediment 1+ /HPF (NEGATIVE) 10/02/21 16:40 Urine Bacteria 3+ /HPF (NEGATIVE) 10/02/21 16:40 Hyaline Casts Few /LPF (NEGATIVE) 10/02/21 16:40 Urine Mucus Few /HPF (NEGATIVE) 10/02/21 16:40 Ur Culture Indicated? Yes/culture set up 10/02/21 16:40 SARS CoV-2 RNA Rapid CHRISTOPHER Negative (NEGATIVE) 10/02/21 17:55 - Plan (1) Sepsis Status: Acute Qualifiers: Sepsis type: Escherichia coli Sepsis acute organ dysfunction status: unspecified Qualified Code(s): A41.51 - Sepsis due to Escherichia coli [E. coli] Plan: NORMAL SALINE AT 125ML/HR, DOXYCYCLINE 100MG IV Q12H, CLONAZEPAM 0.5MG PO HS, LEXAPRO 10MG PO DAILY, PEPCID 40MG PO BID, NAMENDA 10MG PO DAILY, LOSARTAN 100MG PO DAILY, LYRICA 75MG PO DAILY, AND THE POTASSIUM AND MAGNESIUM PROTOCOLS. (2) Urinary tract infection Status: Acute Qualifiers: Indwelling urinary catheter type: indwelling urethral catheter Encounter type: initial encounter (3) Acute on chronic kidney failure Status: Acute Qualifiers: Acute renal failure type: unspecified Chronic kidney disease stage: stage 3 (moderate) Chronic kidney disease stage 3 subtype: stage 3b (GFR 30-44) Qualified Code(s): N17.9 - Acute kidney failure, unspecified; N18.32 - Chronic kidney disease, stage 3b (4) Dehydration Status: Acute (5) Hypertension Status: Acute Qualifiers: Hypertension type: primary hypertension Qualified Code(s): I10 - Essential (primary) hypertension
[2021-10-07] MEDS: COZAAR PO SCH (09:19)
[2021-10-07] MEDS: VIBRAMYCIN 100 MG in D5W 250 ML IV 250 ML IV SCH ×2 (10:13→21:25)
[2021-10-07] MEDS: TYLENOL 325 MG TAB PO PRN (21:23)
[2021-10-07] MEDS: KLONOPIN TAB 0.5 MG PO SCH (21:26)
[2021-10-07] MEDS: COLACE CAP 100 MG PO SCH (21:26)
[2021-10-08] MEDS: NS 1,000 ML IV 1,000 ML IV SCH ×2 (00:28→08:32)
[2021-10-08 06:30] LABS: BASOPHILS % (AUTO) 0.6 % (0.2-1.0); EOSINOPHILS # (AUTO) 0.3 x10^3/uL (0.0-0.2); EOSINOPHILS % (AUTO) 2.9 % (0.9-2.9); HEMATOCRIT 29.9 % (36.0-47.0); HEMOGLOBIN 10.2 g/dL (12.0-16.0); LYMPHOCYTES # (AUTO) 2.5 X10^3/uL (1.3-2.9); MEAN CORPUSCULAR HEMOGLOBIN 29.3 pg (27.0-34.0); MEAN CORPUSCULAR HGB CONC 34.1 g/dL (33.0-35.0); MEAN PLATELET VOLUME 10.6 fL (7.4-11.0); MONOCYTES # (AUTO) 0.9 x10^3/uL (0.3-0.8); MONOCYTES % (AUTO) 10.7 % (0.0-13.0); NEUTROPHILS # (AUTO) 5.1 x10^3/uL (2.2-4.8); NEUTROPHILS % (AUTO) 57.8 % (42.0-75.0); RED BLOOD COUNT 3.47 X10^6/uL (3.5-5.4); RED CELL DISTRIBUTION WIDTH 14.9 % (11.6-16.5); WHITE BLOOD COUNT 8.8 X10^3/uL (3.6-10.0)
[2021-10-08 06:50] LABS: ALBUMIN 2.5 g/dL (3.4-5.0); CALCIUM 8.7 mg/dL (8.5-10.1); CARBON DIOXIDE 24.4 mmol/L (21-32); COR CA(FOR HYPOALB) 9.9 mg/dL (8.5-10.1); CREATININE 1.33 mg/dL (0.55-1.02)
[2021-10-08] MEDS ORDERED: LEXAPRO ONE (08:09)
[2021-10-08] MEDS: PEPCID TAB 20 MG PO SCH (08:25)
[2021-10-08] MEDS: COZAAR PO SCH (08:26)
[2021-10-08] MEDS: LEXAPRO PO SCH (08:27)
[2021-10-08] MEDS: NAMENDA TAB 10 MG PO SCH (08:28)
[2021-10-08] MEDS: LYRICA CAP 75 mg PO SCH (08:29)
[2021-10-08] MEDS: VIBRAMYCIN 100 MG in D5W 250 ML IV 250 ML IV SCH (08:31)
--- NOTE | 2021-10-08 10:31 | PCM.PROG ---
Progress Note - Progress Note for Day of Date of Exam: 10/08/21 - Subjective Subjective: WAS ADMITTED FOR TREATMENT OF UROSEPSIS, ACUTE ON CHRONIC RENAL FAILURE. TODAY, SHE IS ALERT AND ORIENTED, LYING IN BED ON MORNING ROUNDS. SHE CONTINUES WITH COMPLAINTS OF WEAKNESS AND DECREASED APPETITE SINCE ADMISSION. ON EXAMINATION, HEART IS REGULAR IN RATE AND RHYTHM. BILATERAL LUNGS NOTED WITH DIMINISHED LUNG SOUNDS THROUGHOUT. ABDOMEN IS ROUND, SOFT, AND NON- TENDER WITH LOWER ABDOMEN TENDERNESS TO PALPATION. A HURD CATHETER IS NOTED TO BEDSIDE DRAINAGE. 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 HER VITALS THIS MORNING ARE: 97.3-47-18-92%-178/71. LABS WERE OBTAINED. ABNORMAL LAB VALUES INCLUDE THE FOLLOWING: RBC 3.47, HGB 10.2, HCT 29.9, CHLORIDE 110, BUN 2 4, CREATININE 1.33, GLUCOSE 112. AST 14, TOTAL PROTEIN 6.0, ALBUMIN 2.5. URINE CULTURE REVEALED GROWTH OF E.COLI AND ENTEROCOCCUS FAECALIS. SHE IS CURRENTLY RECEIVING NORMAL SALINE AT 125ML/HR, DOXYCYCLINE 100MG IV BID, CLONAZEPAM 0.5MG PO HS, LEXAPRO 10MG PO DAILY, PEPCID 40MG PO BID, NAMENDA 10MG PO DAILY, LYRICA 75MG PO DAILY, LOSARTAN 100MG PO DAILY, AND THE POTASSIUM AND MAGNESIUM PROTOCOLS. PHYSICAL THERAPY IS WORKING WITH PATIENT DAILY. WE WILL ADD A CLONIDINE 0.1MG TD PATCH DUE TO ELEVATED BLOOD PRESSURE. PHYSICAL THERAPY IS WORKING WITH PATIENT DAILY. SHE REQUIRES MODERATE ASSISTANCE WITH AMBULATION. OTHERWISE, WE PLAN TO FOLLOW UP WITH AM LABS AND CONTINUE TO MONITOR. TIME SPENT ON CLINICAL ASSESSMENT, REVIEWING LABS AND IMAGING, DECISION MAKING, AND DOCUMENTATION WAS GREATER THAN 45 MINUTES. - Past Medical Family Social History Past Med/Fam/Surg Hx: No changes since H&P Allergies: Allergies ciprofloxacin [From Cipro HC] Adverse Reaction (Severe, Verified 03/28/21 21:54) ANAPHALEXIS REACTION hydrocortisone [From Cipro HC] Adverse Reaction (Severe, Verified 03/28/21 21:54) ANAPHALEXIS REACTION acetaminophen [From Lorcet (hydrocodone)] Adverse Reaction (Mild, Verified 03/28/21 21:54) RASH baclofen Adverse Reaction (Mild, Verified 03/28/21 21:54) RASH hydrocodone [From Lorcet (hydrocodone)] Adverse Reaction (Mild, Verified 03/28/21 21:54) RASH tramadol Adverse Reaction (Mild, Verified 03/28/21 21:54) RASH - Review of Systems ROS: No change since H&P - Vital Signs and I&O's Vital Signs: Temperature 97.3 F Pulse Rate [Radial] 47 Pulse Rate 82 Respiratory Rate 18 Blood Pressure [Left Arm] 178/71 Blood Pressure [Right Arm] 189/77 Blood Pressure 116/54 O2 Sat by Pulse Oximetry 92 Intake and Output: Intake & Output 10/05/21 10/06/21 10/07/21 10/08/21 11:59 11:59 11:59 11:59 Intake Total 5739 / 5739 5634 / 5634 5473 / 5473 5089 / 5089 Output Total 4900 / 4900 2700 / 2700 2980 / 2980 4090 / 4090 Balance 839 / 839 2934 / 2934 2493 / 2493 999 / 999 - Physical Exam Oriented: Normal Eyes: Normal Ear: Normal Nose: Normal Throat: Normal Respiratory: Generalized, Diminished Cardiovascular: Normal : Other (CHRONIC INDWELLING HURD) Auscultation: Bowel Sounds: Normal Tenderness: Suprapubic, Mild Skin: Decreased Turgur Musculoskeletal: Normal Psychiatric: Normal Mood Description: Calm Affect: Normal Speech Pattern: Clear, Appropriate - Laboratory and Diagnostics Result Diagrams: 10/08/21 05:45 10/08/21 05:45 Labs: 10/04/21 09:50 Urine,Clean Catch Urine Culture - Final 10/02/21 17:55 Catheter Tip - Other - Final Escherichia Coli Enterococcus Faecalis 10/02/21 16:40 Urine,Catheterized Urine Culture - Final Laboratory WBC 8.8 X10^3/uL (3.6-10.0) 10/08/21 05:45 RBC 3.47 X10^6/uL (3.5-5.4) L 10/08/21 05:45 Hgb 10.2 g/dL (12.0-16.0) L 10/08/21 05:45 Hct 29.9 % (36.0-47.0) L 10/08/21 05:45 MCV 86.0 fL (80.0-100.0) 10/08/21 05:45 MCH 29.3 pg (27.0-34.0) 10/08/21 05:45 MCHC 34.1 g/dL (33.0-35.0) 10/08/21 05:45 RDW 14.9 % (11.6-16.5) 10/08/21 05:45 Plt Count 171 X10^3/uL (150.0-450.0) 10/08/21 05:45 Plt Count Comment Adequate (ADEQUATE) 10/03/21 03:52 MPV 10.6 fL (7.4-11.0) 10/08/21 05:45 Neut % (Auto) 57.8 % (42.0-75.0) 10/08/21 05:45 Lymph % (Auto) 28.0 % (21.0-51.0) 10/08/21 05:45 [place] % (Auto) 10.7 % (0.0-13.0) 10/08/21 05:45 Eos % (Auto) 2.9 % (0.9-2.9) 10/08/21 05:45 Baso % (Auto) 0.6 % (0.2-1.0) 10/08/21 05:45 Neut # (Auto) 5.1 x10^3/uL (2.2-4.8) H 10/08/21 05:45 Lymph # (Auto) 2.5 X10^3/uL (1.3-2.9) 10/08/21 05:45 [place] # (Auto) 0.9 x10^3/uL (0.3-0.8) H 10/08/21 05:45 Eos # (Auto) 0.3 x10^3/uL (0.0-0.2) H 10/08/21 05:45 Baso # (Auto) 0.0 X10^3/uL (0.0-0.1) 10/08/21 05:45 Absolute Nucleated RBC 0.0 /100WBC 10/08/21 05:45 Total Counted 100 10/03/21 03:52 Neutrophils % (Manual) 91 % (39-76) H 10/03/21 03:52 Band Neutrophils % 2 % (0-10) 10/03/21 03:52 Lymphocytes % (Manual) 4 % (13-43) L 10/03/21 03:52 Monocytes % (Manual) 3 % (4-9) L 10/03/21 03:52 Plt Morphology Comment Normal (NORMAL) 10/03/21 03:52 RBC Morphology Normal (NORMAL) 10/03/21 03:52 Sodium 143 mmol/L (136-145) 10/08/21 05:45 Corrected Sodium 143 mmol/L (136-145) 10/08/21 05:45 Potassium 4.0 mmol/L (3.5-5.1) 10/08/21 05:45 Chloride 110 mmol/L (98-107) H 10/08/21 05:45 Carbon Dioxide 24.4 mmol/L (21-32) 10/08/21 05:45 BUN 24 mg/dL (7-18) H 10/08/21 05:45 Creatinine 1.33 mg/dL (0.55-1.02) H 10/08/21 05:45 Est GFR (MDRD) Af Amer 50 (>60) L 10/08/21 05:45 Est GFR (MDRD) Non-Af 41 (>60) L 10/08/21 05:45 Glucose 112 mg/dL (65-99) H 10/08/21 05:45 POC Glucose (mg/dL) 107 mg/dL (65-99) H 10/08/21 05:53 Lactic Acid 1.2 mmol/L (0.4-2.0) 10/02/21 17:09 Calcium 8.7 mg/dL (8.5-10.1) 10/08/21 05:45 Corrected Calcium 9.9 mg/dL (8.5-10.1) 10/08/21 05:45 Magnesium 2.0 mg/dL (1.7-2.9) 10/05/21 05:16 Total Bilirubin 0.40 mg/dL (0.2-1.0) 10/08/21 05:45 AST 14 Units/L (15-37) L 10/08/21 05:45 ALT 16 Units/L (12-78) 10/08/21 05:45 Alkaline Phosphatase 57 Units/L (46-116) 10/08/21 05:45 Total Protein 6.0 g/dL (6.4-8.2) L 10/08/21 05:45 Albumin 2.5 g/dL (3.4-5.0) L 10/08/21 05:45 Globulin 3.5 g/dL (2.5-4.5) 10/08/21 05:45 Albumin/Globulin Ratio 0.7 Ratio (1.1-2.1) L 10/08/21 05:45 Specimen Type Catherized urine 10/02/21 16:40 Urine Color Yellow (YELLOW) 10/02/21 16:40 Urine Appearance Cloudy (CLEAR) 10/02/21 16:40 Urine pH 6.0 (5.0 - 8.0) 10/02/21 16:40 Ur Specific [place] 1.015 (1.000-1.030) 10/02/21 16:40 Urine Protein 4+ (NEGATIVE) 10/02/21 16:40 Urine Glucose (UA) Negative (NEGATIVE) 10/02/21 16:40 Urine Ketones Negative (NEGATIVE) 10/02/21 16:40 Urine Occult Blood 5+ (NEGATIVE) 10/02/21 16:40 Urine Nitrite Positive (NEGATIVE) 10/02/21 16:40 Urine Bilirubin Negative (NEGATIVE) 10/02/21 16:40 Urine Urobilinogen Normal (NORMAL) 10/02/21 16:40 Ur Leukocyte Esterase 3+ (NEGATIVE) 10/02/21 16:40 Urine RBC 10-20 /HPF (0-3) A 10/02/21 16:40 Urine WBC Tntc /HPF (0-5) A 10/02/21 16:40 Ur Squamous Epith Cells Few /HPF (NEGATIVE) 10/02/21 16:40 Amorphous Sediment 1+ /HPF (NEGATIVE) 10/02/21 16:40 Urine Bacteria 3+ /HPF (NEGATIVE) 10/02/21 16:40 Hyaline Casts Few /LPF (NEGATIVE) 10/02/21 16:40 Urine Mucus Few /HPF (NEGATIVE) 10/02/21 16:40 Ur Culture Indicated? Yes/culture set up 10/02/21 16:40 SARS CoV-2 RNA Rapid CHRISTOPHER Negative (NEGATIVE) 10/02/21 17:55 - Plan (1) Sepsis Status: Acute Qualifiers: Sepsis type: Escherichia coli Sepsis acute organ dysfunction status: unspecified Qualified Code(s): A41.51 - Sepsis due to Escherichia coli [E. coli] Plan: NORMAL SALINE AT 125ML/HR, DOXYCYCLINE 100MG IV Q12H, CLONAZEPAM 0.5MG PO HS, LEXAPRO 10MG PO DAILY, PEPCID 40MG PO BID, NAMENDA 10MG PO DAILY, LOSARTAN 100MG PO DAILY, CATAPRES 0.1MG TD PATCH, LYRICA 75MG PO DAILY, AND THE POTASSIUM AND MAGNESIUM PROTOCOLS. (2) Urinary tract infection Status: Acute Qualifiers: Indwelling urinary catheter type: indwelling urethral catheter Encounter type: initial encounter (3) Acute on chronic kidney failure Status: Acute Qualifiers: Acute renal failure type: unspecified Chronic kidney disease stage: stage 3 (moderate) Chronic kidney disease stage 3 subtype: stage 3b (GFR 30-44) Qualified Code(s): N17.9 - Acute kidney failure, unspecified; N18.32 - Chronic kidney disease, stage 3b (4) Dehydration Status: Acute (5) Hypertension Status: Acute Qualifiers: Hypertension type: primary hypertension Qualified Code(s): I10 - Essential (primary) hypertension
[2021-10-08] MEDS ORDERED: CATAPRES-TTS-1 TD SCH (11:00)
[2021-10-08] MEDS: ALBUMIN HUMAN 25%- 100 ML 100 ML IV SCH (12:14)
[2021-10-08] MEDS: LOVENOX INJ 30 MG SYR SC SCH (15:02)
[2021-10-08] MEDS ORDERED: NS 100 ML IV + SPIKE MINIBAG IV ONE (21:00)
[2021-10-08] MEDS ORDERED: COLACE CAP 100 MG PO ONE (21:00)
[2021-10-08] MEDS ORDERED: VIBRAMYCIN IV ONE (21:00)
[2021-10-08] MEDS ORDERED: KLONOPIN TAB 0.5 MG PO ONE (21:00)
[2021-10-09] MEDS ORDERED: VIBRAMYCIN IV ONE (09:52)
[2021-10-09 12:56] LABS: ALBUMIN 2.7 g/dL (3.4-5.0); CALCIUM 8.4 mg/dL (8.5-10.1); CARBON DIOXIDE 24.9 mmol/L (21-32); COR CA(FOR HYPOALB) 9.4 mg/dL (8.5-10.1); CREATININE 1.33 mg/dL (0.55-1.02); TOTAL PROTEIN 6.2 g/dL (6.4-8.2)
[2021-10-09 13:37] LABS: BASOPHILS % (AUTO) 0.7 % (0.2-1.0); EOSINOPHILS # (AUTO) 0.3 x10^3/uL (0.0-0.2); EOSINOPHILS % (AUTO) 2.6 % (0.9-2.9); HEMATOCRIT 30.1 % (36.0-47.0); HEMOGLOBIN 10.1 g/dL (12.0-16.0); LYMPHOCYTES # (AUTO) 2.6 X10^3/uL (1.3-2.9); LYMPHOCYTES % (AUTO) 26.1 % (21.0-51.0); MEAN CORPUSCULAR HEMOGLOBIN 28.8 pg (27.0-34.0); MEAN CORPUSCULAR HGB CONC 33.5 g/dL (33.0-35.0); MEAN CORPUSCULAR VOLUME 85.9 fL (80.0-100.0); MEAN PLATELET VOLUME 10.6 fL (7.4-11.0); MONOCYTES # (AUTO) 0.9 x10^3/uL (0.3-0.8); MONOCYTES % (AUTO) 9.5 % (0.0-13.0); NEUTROPHILS # (AUTO) 6.1 x10^3/uL (2.2-4.8); NEUTROPHILS % (AUTO) 61.1 % (42.0-75.0); RED CELL DISTRIBUTION WIDTH 15.3 % (11.6-16.5); WHITE BLOOD COUNT 9.9 X10^3/uL (3.6-10.0)
[2021-10-09 13:38] LABS: BASOPHILS # (AUTO) 0.1 X10^3/uL (0.0-0.1)
--- NOTE | 2021-10-09 18:25 | PCM.PROG ---
Progress Note Progress Note for Day of Date of Exam: 10/09/21 Subjective Subjective: WAS ADMITTED FOR TREATMENT OF UROSEPSIS, ACUTE ON CHRONIC RENAL FAILURE. TODAY, SHE IS ALERT AND ORIENTED, LYING IN BED ON MORNING ROUNDS. SHE CONTINUES WITH COMPLAINTS OF WEAKNESS AND DECREASED APPETITE SINCE ADMISSION. ON EXAMINATION, HEART IS REGULAR IN RATE AND RHYTHM. BILATERAL LUNGS NOTED WITH DIMINISHED LUNG SOUNDS THROUGHOUT. ABDOMEN IS ROUND, SOFT, AND NON- TENDER WITH LOWER ABDOMEN TENDERNESS TO PALPATION. A HURD CATHETER IS NOTED TO BEDSIDE DRAINAGE. 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 HER VITALS THIS MORNING ARE: [id number]%-178/71. LABS WERE OBTAINED. ABNORMAL LAB VALUES INCLUDE THE FOLLOWING: HGB 10.1, HCT 30.1, CHLORIDE 111, BUN 26, CREATI NINE 1.33, GLUCOSE 119. URINE CULTURE REVEALED GROWTH OF E.COLI AND ENTEROCOCCUS FAECALIS. SHE IS CURRENTLY RECEIVING NORMAL SALINE AT 125ML/HR, DOXYCYCLINE 100MG IV BID, CLONAZEPAM 0.5MG PO HS, LEXAPRO 10MG PO DAILY, PEPCID 40MG PO BID, NAMENDA 10MG PO DAILY, LYRICA 75MG PO DAILY, LOSARTAN 100MG PO DAILY, AND THE POTASSIUM AND MAGNESIUM PROTOCOLS. PHYSICAL THERAPY IS WORKING WITH PATIENT DAILY. WE WILL ADD A CLONIDINE 0.1MG TD PATCH DUE TO ELEVATED BLOOD PRESSURE. PHYSICAL THERAPY IS WORKING WITH PATIENT DAILY. SHE REQUIRES MODERATE ASSISTANCE WITH AMBULATION. OTHERWISE, WE PLAN TO FOLLOW UP WITH AM LABS AND CONTINUE TO MONITOR. TIME SPENT ON CLINICAL ASSESSMENT, REVIEWING LABS AND IMAGING, DECISION MAKING, AND DOCUMENTATION WAS GREATER THAN 45 MINUTES. Past Medical Family Social History Past Med/Fam/Surg Hx: No changes since H&P Allergies: Allergies ciprofloxacin [From Cipro HC] Adverse Reaction (Severe, Verified 03/28/21 21:54) ANAPHALEXIS REACTION hydrocortisone [From Cipro HC] Adverse Reaction (Severe, Verified 03/28/21 21:54) ANAPHALEXIS REACTION acetaminophen [From Lorcet (hydrocodone)] Adverse Reaction (Mild, Verified 03/28/21 21:54) RASH baclofen Adverse Reaction (Mild, Verified 03/28/21 21:54) RASH hydrocodone [From Lorcet (hydrocodone)] Adverse Reaction (Mild, Verified 03/28/21 21:54) RASH tramadol Adverse Reaction (Mild, Verified 03/28/21 21:54) RASH Review of Systems ROS: No change since H&P Vital Signs and I&O's Vital Signs: Temperature 98.9 F Pulse Rate [Radial] 59 Pulse Rate 82 Respiratory Rate 18 Blood Pressure [Left Arm] 172/74 Blood Pressure [Right Arm] 189/77 Blood Pressure 116/54 O2 Sat by Pulse Oximetry 93 Intake and Output: Intake & Output 10/07/21 10/08/21 10/09/21 10/10/21 11:59 11:59 11:59 11:59 Intake Total 5473 / 5473 5089 / 5089 630 / 630 840 / 840 Output Total 2980 / 2980 4090 / 4090 2200 / 2200 1500 / 1500 Balance 2493 / 2493 999 / 999 -1570 / -1570 -660 / -660 Physical Exam Oriented: Normal Eyes: Normal Ear: Normal Nose: Normal Throat: Normal Respiratory: Generalized and Diminished Cardiovascular: Normal : Other (CHRONIC INDWELLING HURD) Auscultation: Bowel Sounds: Normal Tenderness: Suprapubic and Mild Skin: Decreased Turgur Musculoskeletal: Normal Psychiatric: Normal Mood Description: Calm Affect: Normal Speech Pattern: Clear and Appropriate Laboratory and Diagnostics Result Diagrams: 10/09/21 05:42 10/09/21 05:42 Labs: 10/04/21 09:50 Urine,Clean Catch Urine Culture - Final 10/02/21 17:55 Catheter Tip - Other - Final Escherichia Coli Enterococcus Faecalis 10/02/21 16:40 Urine,Catheterized Urine Culture - Final Laboratory WBC 9.9 X10^3/uL (3.6-10.0) 10/09/21 05:42 RBC 3.50 X10^6/uL (3.5-5.4) 10/09/21 05:42 Hgb 10.1 g/dL (12.0-16.0) L 10/09/21 05:42 Hct 30.1 % (36.0-47.0) L 10/09/21 05:42 MCV 85.9 fL (80.0-100.0) 10/09/21 05:42 MCH 28.8 pg (27.0-34.0) 10/09/21 05:42 MCHC 33.5 g/dL (33.0-35.0) 10/09/21 05:42 RDW 15.3 % (11.6-16.5) 10/09/21 05:42 Plt Count 191 X10^3/uL (150.0-450.0) 10/09/21 05:42 Plt Count Comment Adequate (ADEQUATE) 10/03/21 03:52 MPV 10.6 fL (7.4-11.0) 10/09/21 05:42 Neut % (Auto) 61.1 % (42.0-75.0) 10/09/21 05:42 Lymph % (Auto) 26.1 % (21.0-51.0) 10/09/21 05:42 [place] % (Auto) 9.5 % (0.0-13.0) 10/09/21 05:42 Eos % (Auto) 2.6 % (0.9-2.9) 10/09/21 05:42 Baso % (Auto) 0.7 % (0.2-1.0) 10/09/21 05:42 Neut # (Auto) 6.1 x10^3/uL (2.2-4.8) H 10/09/21 05:42 Lymph # (Auto) 2.6 X10^3/uL (1.3-2.9) 10/09/21 05:42 [place] # (Auto) 0.9 x10^3/uL (0.3-0.8) H 10/09/21 05:42 Eos # (Auto) 0.3 x10^3/uL (0.0-0.2) H 10/09/21 05:42 Baso # (Auto) 0.1 X10^3/uL (0.0-0.1) 10/09/21 05:42 Absolute Nucleated RBC 0.1 /100WBC 10/09/21 05:42 Total Counted 100 10/03/21 03:52 Neutrophils % (Manual) 91 % (39-76) H 10/03/21 03:52 Band Neutrophils % 2 % (0-10) 10/03/21 03:52 Lymphocytes % (Manual) 4 % (13-43) L 10/03/21 03:52 Monocytes % (Manual) 3 % (4-9) L 10/03/21 03:52 Plt Morphology Comment Normal (NORMAL) 10/03/21 03:52 RBC Morphology Normal (NORMAL) 10/03/21 03:52 Sodium 144 mmol/L (136-145) 10/09/21 05:42 Corrected Sodium 144 mmol/L (136-145) 10/09/21 05:42 Potassium 3.9 mmol/L (3.5-5.1) 10/09/21 05:42 Chloride 111 mmol/L (98-107) H 10/09/21 05:42 Carbon Dioxide 24.9 mmol/L (21-32) 10/09/21 05:42 BUN 26 mg/dL (7-18) H 10/09/21 05:42 Creatinine 1.33 mg/dL (0.55-1.02) H 10/09/21 05:42 Est GFR (MDRD) Af Amer 50 (>60) L 10/09/21 05:42 Est GFR (MDRD) Non-Af 41 (>60) L 10/09/21 05:42 Glucose 119 mg/dL (65-99) H 10/09/21 05:42 POC Glucose (mg/dL) 137 mg/dL (65-99) H 10/08/21 16:41 Lactic Acid 1.2 mmol/L (0.4-2.0) 10/02/21 17:09 Calcium 8.4 mg/dL (8.5-10.1) L 10/09/21 05:42 Corrected Calcium 9.4 mg/dL (8.5-10.1) 10/09/21 05:42 Magnesium 2.0 mg/dL (1.7-2.9) 10/05/21 05:16 Total Bilirubin 0.20 mg/dL (0.2-1.0) 10/09/21 05:42 AST 12 Units/L (15-37) L 10/09/21 05:42 ALT 16 Units/L (12-78) 10/09/21 05:42 Alkaline Phosphatase 57 Units/L (46-116) 10/09/21 05:42 Total Protein 6.2 g/dL (6.4-8.2) L 10/09/21 05:42 Albumin 2.7 g/dL (3.4-5.0) L 10/09/21 05:42 Globulin 3.5 g/dL (2.5-4.5) 10/09/21 05:42 Albumin/Globulin Ratio 0.8 Ratio (1.1-2.1) L 10/09/21 05:42 Specimen Type Catherized urine 10/02/21 16:40 Urine Color Yellow (YELLOW) 10/02/21 16:40 Urine Appearance Cloudy (CLEAR) 10/02/21 16:40 Urine pH 6.0 (5.0 - 8.0) 10/02/21 16:40 Ur Specific [place] 1.015 (1.000-1.030) 10/02/21 16:40 Urine Protein 4+ (NEGATIVE) 10/02/21 16:40 Urine Glucose (UA) Negative (NEGATIVE) 10/02/21 16:40 Urine Ketones Negative (NEGATIVE) 10/02/21 16:40 Urine Occult Blood 5+ (NEGATIVE) 10/02/21 16:40 Urine Nitrite Positive (NEGATIVE) 10/02/21 16:40 Urine Bilirubin Negative (NEGATIVE) 10/02/21 16:40 Urine Urobilinogen Normal (NORMAL) 10/02/21 16:40 Ur Leukocyte Esterase 3+ (NEGATIVE) 10/02/21 16:40 Urine RBC 10-20 /HPF (0-3) A 10/02/21 16:40 Urine WBC Tntc /HPF (0-5) A 10/02/21 16:40 Ur Squamous Epith Cells Few /HPF (NEGATIVE) 10/02/21 16:40 Amorphous Sediment 1+ /HPF (NEGATIVE) 10/02/21 16:40 Urine Bacteria 3+ /HPF (NEGATIVE) 10/02/21 16:40 Hyaline Casts Few /LPF (NEGATIVE) 10/02/21 16:40 Urine Mucus Few /HPF (NEGATIVE) 10/02/21 16:40 Ur Culture Indicated? Yes/culture set up 10/02/21 16:40 SARS CoV-2 RNA Rapid CHRISTOPHER Negative (NEGATIVE) 10/02/21 17:55 Radiology Reviewed: Yes Plan (1) Sepsis: Status: Acute Qualifiers: Sepsis acute organ dysfunction status: unspecified Sepsis type: Escher ichia coli Qualified Code(s): A41.51 - Sepsis due to Escherichia coli [E. coli] Plan: NORMAL SALINE AT 125ML/HR, DOXYCYCLINE 100MG IV Q12H, CLONAZEPAM 0.5MG PO HS, LEXAPRO 10MG PO DAILY, PEPCID 40MG PO BID, NAMENDA 10MG PO DAILY, LOSARTAN 100MG PO DAILY, CATAPRES 0.1MG TD PATCH, LYRICA 75MG PO DAILY, AND THE POTASSIUM AND MAGNESIUM PROTOCOLS. (2) Urinary tract infection: Status: Acute Qualifiers: Encounter type: initial encounter Indwelling urinary catheter type: indwelling urethral catheter Plan: Add Cipro for coverage of UTI. D/C Doxycycline. (3) Acute on chronic kidney failure: Status: Acute Qualifiers: Acute renal failure type: unspecified Chronic kidney disease stage: stage 3 (moderate) Chronic kidney disease stage 3 subtype: stage 3b (GFR 30-44) Qualified Code(s): N17.9 - Acute kidney failure, unspecified; N18.32 - Chronic kidney disease, stage 3b Narrative Support Text: Stable now. (4) Dehydration: Status: Acute Narrative Support Text: Resolving. Plan: IVF (5) Hypertension: Status: Acute Qualifiers: Hypertension type: primary hypertension Qualified Code(s): I10 - Essential (primary) hypertension
[2021-10-09] MEDS ORDERED: CIPRO IV 400 MG PREMIX* 400 MG/200 ML IV.SOLN. IV SCH (21:00)
[2021-10-09] MEDS: KLONOPIN TAB 0.5 MG PO SCH (21:12)
[2021-10-09] MEDS: COLACE CAP 100 MG PO SCH (21:12)
[2021-10-09] MEDS: VIBRAMYCIN 100 MG in D5W 250 ML IV 250 ML IV SCH (21:50)
[2021-10-10 07:09] LABS: BASOPHILS # (AUTO) 0.1 X10^3/uL (0.0-0.1); BASOPHILS % (AUTO) 0.6 % (0.2-1.0); EOSINOPHILS # (AUTO) 0.3 x10^3/uL (0.0-0.2); EOSINOPHILS % (AUTO) 2.9 % (0.9-2.9); HEMATOCRIT 29.4 % (36.0-47.0); LYMPHOCYTES # (AUTO) 2.6 X10^3/uL (1.3-2.9); MEAN CORPUSCULAR HEMOGLOBIN 29.4 pg (27.0-34.0); MEAN CORPUSCULAR VOLUME 86.7 fL (80.0-100.0); MEAN PLATELET VOLUME 10.2 fL (7.4-11.0); MONOCYTES # (AUTO) 0.7 x10^3/uL (0.3-0.8); MONOCYTES % (AUTO) 8.4 % (0.0-13.0); NEUTROPHILS # (AUTO) 5.2 x10^3/uL (2.2-4.8); NEUTROPHILS % (AUTO) 59.1 % (42.0-75.0); RED BLOOD COUNT 3.39 X10^6/uL (3.5-5.4); RED CELL DISTRIBUTION WIDTH 14.9 % (11.6-16.5); WHITE BLOOD COUNT 8.8 X10^3/uL (3.6-10.0)
[2021-10-10 07:35] LABS: ALANINE AMINOTRANSFERASE 14 Units/L (12-78); ALBUMIN 2.8 g/dL (3.4-5.0); ALKALINE PHOSPHATASE 57 Units/L (46-116); ASPARTATE AMINO TRANSFERASE 12 Units/L (15-37); BLOOD UREA NITROGEN 28 mg/dL (7-18); CALCIUM 8.5 mg/dL (8.5-10.1); COR CA(FOR HYPOALB) 9.5 mg/dL (8.5-10.1); CREATININE 1.16 mg/dL (0.55-1.02); TOTAL PROTEIN 6.1 g/dL (6.4-8.2); eGFR NON BLACK RACES 49 (>60)
[2021-10-10 07:48] LABS: CHLORIDE 106 mmol/L (98-107); SODIUM 143 mmol/L (136-145)
[2021-10-10] MEDS ORDERED: LEXAPRO ONE (08:21)
[2021-10-10] MEDS ORDERED: D5W 250 ML IV 250 ML IV ONE (08:32)
[2021-10-10] MEDS: ALBUMIN HUMAN 25%- 100 ML 100 ML IV SCH (08:49)
[2021-10-10] MEDS: COZAAR PO SCH (08:50)
[2021-10-10] MEDS: LEXAPRO PO SCH (08:50)
[2021-10-10] MEDS: LOVENOX INJ 30 MG SYR SC SCH (08:51)
[2021-10-10] MEDS: LYRICA CAP 75 mg PO SCH (08:51)
[2021-10-10] MEDS: NAMENDA TAB 10 MG PO SCH (08:51)
[2021-10-10] MEDS: PEPCID TAB 20 MG PO SCH (08:52)
[2021-10-10] MEDS: VIBRAMYCIN 100 MG in D5W 250 ML IV 250 ML IV SCH ×2 (08:52→21:00)
[2021-10-10] MEDS: NS 1,000 ML IV 1,000 ML IV SCH (16:10)
[2021-10-10] MEDS: COLACE CAP 100 MG PO SCH (21:00)
[2021-10-10] MEDS: KLONOPIN TAB 0.5 MG PO SCH (21:00)
[2021-10-11] MEDS: NS 1,000 ML IV 1,000 ML IV SCH ×3 (01:26→17:20)
[2021-10-11 06:48] LABS: BLOOD UREA NITROGEN 32 mg/dL (7-18); CALCIUM 8.7 mg/dL (8.5-10.1); CARBON DIOXIDE 24.9 mmol/L (21-32); CHLORIDE 108 mmol/L (98-107); COR NA(FOR HYPERGLY) 143 mmol/L (136-145); CREATININE 1.12 mg/dL (0.55-1.02); SODIUM 143 mmol/L (136-145); eGFR NON BLACK RACES 51 (>60)
[2021-10-11 06:56] LABS: BASOPHILS # (AUTO) 0.1 X10^3/uL (0.0-0.1); BASOPHILS % (AUTO) 0.8 % (0.2-1.0); EOSINOPHILS # (AUTO) 0.2 x10^3/uL (0.0-0.2); EOSINOPHILS % (AUTO) 2.8 % (0.9-2.9); HEMATOCRIT 29.6 % (36.0-47.0); LYMPHOCYTES # (AUTO) 2.4 X10^3/uL (1.3-2.9); LYMPHOCYTES % (AUTO) 31.8 % (21.0-51.0); MEAN CORPUSCULAR HEMOGLOBIN 29.4 pg (27.0-34.0); MEAN CORPUSCULAR HGB CONC 33.9 g/dL (33.0-35.0); MEAN CORPUSCULAR VOLUME 86.7 fL (80.0-100.0); MEAN PLATELET VOLUME 10.4 fL (7.4-11.0); MONOCYTES # (AUTO) 0.7 x10^3/uL (0.3-0.8); MONOCYTES % (AUTO) 8.8 % (0.0-13.0); NEUTROPHILS # (AUTO) 4.2 x10^3/uL (2.2-4.8); NEUTROPHILS % (AUTO) 55.8 % (42.0-75.0); RED BLOOD COUNT 3.41 X10^6/uL (3.5-5.4); RED CELL DISTRIBUTION WIDTH 14.7 % (11.6-16.5); WHITE BLOOD COUNT 7.5 X10^3/uL (3.6-10.0)
[2021-10-11 07:07] LABS: ALANINE AMINOTRANSFERASE 13 Units/L (12-78); ALKALINE PHOSPHATASE 58 Units/L (46-116); ASPARTATE AMINO TRANSFERASE 12 Units/L (15-37); COR CA(FOR HYPOALB) 9.5 mg/dL (8.5-10.1); TOTAL PROTEIN 6.3 g/dL (6.4-8.2)
[2021-10-11] MEDS ORDERED: LEXAPRO ONE (08:32)
[2021-10-11] MEDS: ALBUMIN HUMAN 25%- 100 ML 100 ML IV SCH (09:14)
[2021-10-11] MEDS: LOVENOX INJ 30 MG SYR SC SCH (09:17)
[2021-10-11] MEDS: COZAAR PO SCH (09:17)
[2021-10-11] MEDS: LEXAPRO PO SCH (09:17)
[2021-10-11] MEDS: PEPCID TAB 20 MG PO SCH (09:18)
[2021-10-11] MEDS: NAMENDA TAB 10 MG PO SCH (09:18)
[2021-10-11] MEDS: LYRICA CAP 75 mg PO SCH (09:18)
[2021-10-11] MEDS: VIBRAMYCIN 100 MG in D5W 250 ML IV 250 ML IV SCH ×2 (10:00→20:26)
--- NOTE | 2021-10-11 11:49 | PCM.PROG ---
Progress Note Progress Note for Day of Date of Exam: 10/10/21 Subjective Subjective: WAS ADMITTED FOR TREATMENT OF UROSEPSIS, ACUTE ON CHRONIC RENAL FAILURE. TODAY, SHE IS ALERT AND ORIENTED, LYING IN BED ON MORNING ROUNDS. SHE CONTINUES WITH COMPLAINTS OF WEAKNESS AND DECREASED APPETITE SINCE ADMISSION. ON EXAMINATION, HEART IS REGULAR IN RATE AND RHYTHM. BILATERAL LUNGS NOTED WITH DIMINISHED LUNG SOUNDS THROUGHOUT. ABDOMEN IS ROUND, SOFT, AND NON- TENDER WITH LOWER ABDOMEN TENDERNESS TO PALPATION. A HURD CATHETER IS NOTED TO BEDSIDE DRAINAGE. 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 HER VITALS THIS MORNING ARE: 97.3-47-18-92%-178/71. LABS WERE OBTAINED. ABNORMAL LAB VALUES INCLUDE THE FOLLOWING: HGB 10.1, HCT 30.1, CHLORIDE 111, BUN 26, CREATI NINE 1.33, GLUCOSE 119. URINE CULTURE REVEALED GROWTH OF E.COLI AND ENTEROCOCCUS FAECALIS. SHE IS CURRENTLY RECEIVING NORMAL SALINE AT 125ML/HR, DOXYCYCLINE 100MG IV BID, CLONAZEPAM 0.5MG PO HS, LEXAPRO 10MG PO DAILY, PEPCID 40MG PO BID, NAMENDA 10MG PO DAILY, LYRICA 75MG PO DAILY, LOSARTAN 100MG PO DAILY, AND THE POTASSIUM AND MAGNESIUM PROTOCOLS. PHYSICAL THERAPY IS WORKING WITH PATIENT DAILY. WE WILL ADD A CLONIDINE 0.1MG TD PATCH DUE TO ELEVATED BLOOD PRESSURE. PHYSICAL THERAPY IS WORKING WITH PATIENT DAILY. SHE REQUIRES MODERATE ASSISTANCE WITH AMBULATION. OTHERWISE, WE PLAN TO FOLLOW UP WITH AM LABS AND CONTINUE TO MONITOR. TIME SPENT ON CLINICAL ASSESSMENT, REVIEWING LABS AND IMAGING, DECISION MAKING, AND DOCUMENTATION WAS GREATER THAN 45 MINUTES. Patient feels better thia am. No new complaints. No problems overnight. Past Medical Family Social History Past Med/Fam/Surg Hx: No changes since H&P Allergies: Allergies ciprofloxacin [From Cipro HC] Adverse Reaction (Severe, Verified 03/28/21 21:54) ANAPHALEXIS REACTION hydrocortisone [From Cipro HC] Adverse Reaction (Severe, Verified 03/28/21 21:54) ANAPHALEXIS REACTION acetaminophen [From Lorcet (hydrocodone)] Adverse Reaction (Mild, Verified 03/28/21 21:54) RASH baclofen Adverse Reaction (Mild, Verified 03/28/21 21:54) RASH hydrocodone [From Lorcet (hydrocodone)] Adverse Reaction (Mild, Verified 03/28/21 21:54) RASH tramadol Adverse Reaction (Mild, Verified 03/28/21 21:54) RASH Review of Systems ROS: No change since H&P Vital Signs and I&O's Vital Signs: Temperature 97.3 F Pulse Rate [Radial] 51 Pulse Rate 82 Respiratory Rate 21 Blood Pressure [Left Arm] 165/70 Blood Pressure [Right Arm] 189/77 Blood Pressure 116/54 O2 Sat by Pulse Oximetry 96 Intake and Output: Intake & Output 10/08/21 10/09/21 10/10/21 10/11/21 11:59 11:59 11:59 11:59 Intake Total 5089 / 5089 630 / 630 1140 / 1140 2374 / 2374 Output Total 4090 / 4090 2200 / 2200 2825 / 2825 3050 / 3050 Balance 999 / 999 -1570 / -1570 -1685 / -1685 -676 / -676 Physical Exam Oriented: Normal Eyes: Normal Ear: Normal Nose: Normal Throat: Normal Respiratory: Generalized and Diminished Cardiovascular: Normal : Other (CHRONIC INDWELLING HURD) Auscultation: Bowel Sounds: Normal Tenderness: Suprapubic and Mild Skin: Decreased Turgur Musculoskeletal: Normal Psychiatric: Normal Mood Description: Calm Affect: Normal Speech Pattern: Clear and Appropriate Laboratory and Diagnostics Result Diagrams: 10/11/21 05:58 10/11/21 05:58 Labs: 10/04/21 09:50 Urine,Clean Catch Urine Culture - Final 10/02/21 17:55 Catheter Tip - Other - Final Escherichia Coli Enterococcus Faecalis 10/02/21 16:40 Urine,Catheterized Urine Culture - Final Laboratory WBC 7.5 X10^3/uL (3.6-10.0) 10/11/21 05:58 RBC 3.41 X10^6/uL (3.5-5.4) L 10/11/21 05:58 Hgb 10.0 g/dL (12.0-16.0) L 10/11/21 05:58 Hct 29.6 % (36.0-47.0) L 10/11/21 05:58 MCV 86.7 fL (80.0-100.0) 10/11/21 05:58 MCH 29.4 pg (27.0-34.0) 10/11/21 05:58 MCHC 33.9 g/dL (33.0-35.0) 10/11/21 05:58 RDW 14.7 % (11.6-16.5) 10/11/21 05:58 Plt Count 228 X10^3/uL (150.0-450.0) 10/11/21 05:58 Plt Count Comment Adequate (ADEQUATE) 10/03/21 03:52 MPV 10.4 fL (7.4-11.0) 10/11/21 05:58 Neut % (Auto) 55.8 % (42.0-75.0) 10/11/21 05:58 Lymph % (Auto) 31.8 % (21.0-51.0) 10/11/21 05:58 [place] % (Auto) 8.8 % (0.0-13.0) 10/11/21 05:58 Eos % (Auto) 2.8 % (0.9-2.9) 10/11/21 05:58 Baso % (Auto) 0.8 % (0.2-1.0) 10/11/21 05:58 Neut # (Auto) 4.2 x10^3/uL (2.2-4.8) 10/11/21 05:58 Lymph # (Auto) 2.4 X10^3/uL (1.3-2.9) 10/11/21 05:58 [place] # (Auto) 0.7 x10^3/uL (0.3-0.8) 10/11/21 05:58 Eos # (Auto) 0.2 x10^3/uL (0.0-0.2) 10/11/21 05:58 Baso # (Auto) 0.1 X10^3/uL (0.0-0.1) 10/11/21 05:58 Absolute Nucleated RBC 0.1 /100WBC 10/11/21 05:58 Total Counted 100 10/03/21 03:52 Neutrophils % (Manual) 91 % (39-76) H 10/03/21 03:52 Band Neutrophils % 2 % (0-10) 10/03/21 03:52 Lymphocytes % (Manual) 4 % (13-43) L 10/03/21 03:52 Monocytes % (Manual) 3 % (4-9) L 10/03/21 03:52 Plt Morphology Comment Normal (NORMAL) 10/03/21 03:52 RBC Morphology Normal (NORMAL) 10/03/21 03:52 Sodium 143 mmol/L (136-145) 10/11/21 05:58 Corrected Sodium 143 mmol/L (136-145) 10/11/21 05:58 Potassium 4.0 mmol/L (3.5-5.1) 10/11/21 05:58 Chloride 108 mmol/L (98-107) H 10/11/21 05:58 Carbon Dioxide 24.9 mmol/L (21-32) 10/11/21 05:58 BUN 32 mg/dL (7-18) H 10/11/21 05:58 Creatinine 1.12 mg/dL (0.55-1.02) H 10/11/21 05:58 Est GFR (MDRD) Af Amer > 60 (>60) 10/11/21 05:58 Est GFR (MDRD) Non-Af 51 (>60) L 10/11/21 05:58 Glucose 111 mg/dL (65-99) H 10/11/21 05:58 POC Glucose (mg/dL) 137 mg/dL (65-99) H 10/08/21 16:41 Lactic Acid 1.2 mmol/L (0.4-2.0) 10/02/21 17:09 Calcium 8.7 mg/dL (8.5-10.1) 10/11/21 05:58 Corrected Calcium 9.5 mg/dL (8.5-10.1) 10/11/21 05:58 Magnesium 2.0 mg/dL (1.7-2.9) 10/05/21 05:16 Total Bilirubin 0.30 mg/dL (0.2-1.0) 10/11/21 05:58 AST 12 Units/L (15-37) L 10/11/21 05:58 ALT 13 Units/L (12-78) 10/11/21 05:58 Alkaline Phosphatase 58 Units/L (46-116) 10/11/21 05:58 Total Protein 6.3 g/dL (6.4-8.2) L 10/11/21 05:58 Albumin 3.0 g/dL (3.4-5.0) L 10/11/21 05:58 Globulin 3.3 g/dL (2.5-4.5) 10/11/21 05:58 Albumin/Globulin Ratio 0.9 Ratio (1.1-2.1) L 10/11/21 05:58 Specimen Type Catherized urine 10/02/21 16:40 Urine Color Yellow (YELLOW) 10/02/21 16:40 Urine Appearance Cloudy (CLEAR) 10/02/21 16:40 Urine pH 6.0 (5.0 - 8.0) 10/02/21 16:40 Ur Specific [place] 1.015 (1.000-1.030) 10/02/21 16:40 Urine Protein 4+ (NEGATIVE) 10/02/21 16:40 Urine Glucose (UA) Negative (NEGATIVE) 10/02/21 16:40 Urine Ketones Negative (NEGATIVE) 10/02/21 16:40 Urine Occult Blood 5+ (NEGATIVE) 10/02/21 16:40 Urine Nitrite Positive (NEGATIVE) 10/02/21 16:40 Urine Bilirubin Negative (NEGATIVE) 10/02/21 16:40 Urine Urobilinogen Normal (NORMAL) 10/02/21 16:40 Ur Leukocyte Esterase 3+ (NEGATIVE) 10/02/21 16:40 Urine RBC 10-20 /HPF (0-3) A 10/02/21 16:40 Urine WBC Tntc /HPF (0-5) A 10/02/21 16:40 Ur Squamous Epith Cells Few /HPF (NEGATIVE) 10/02/21 16:40 Amorphous Sediment 1+ /HPF (NEGATIVE) 10/02/21 16:40 Urine Bacteria 3+ /HPF (NEGATIVE) 10/02/21 16:40 Hyaline Casts Few /LPF (NEGATIVE) 10/02/21 16:40 Urine Mucus Few /HPF (NEGATIVE) 10/02/21 16:40 Ur Culture Indicated? Yes/culture set up 10/02/21 16:40 SARS CoV-2 RNA Rapid CHRISTOPHER Negative (NEGATIVE) 10/02/21 17:55 Radiology Reviewed: Yes Plan (1) Sepsis: Status: Acute Qualifiers: Sepsis acute organ dysfunction status: unspecified Sepsis type: Escherichia coli Qualified Code(s): A41.51 - Sepsis due to Escherichia coli [E. coli] Plan: NORMAL SALINE AT 125ML/HR, DOXYCYCLINE 100MG IV Q12H, CLONAZEPAM 0.5MG PO HS, LEXAPRO 10MG PO DAILY, PEPCID 40MG PO BID, NAMENDA 10MG PO DAILY, LOSARTAN 100MG PO DAILY, CATAPRES 0.1MG TD PATCH, LYRICA 75MG PO DAILY, AND THE POTASSIUM AND MAGNESIUM PROTOCOLS. (2) Urinary tract infection: Status: Acute Qualifiers: Encounter type: initial encounter Indwelling urinary catheter type: indwelling urethral catheter Plan: Add Cipro for coverage of UTI. D/C Doxycycline. (3) Acute on chronic kidney failure: Status: Acute Qualifiers: Acute renal failure type: unspecified Chronic kidney disease stage: stage 3 (moderate) Chronic kidney disease stage 3 subtype: stage 3b (GFR 30-44) Qualified Code(s): N17.9 - Acute kidney failure, unspecified; N18.32 - Chronic kidney disease, stage 3b (4) Dehydration: Status: Acute Plan: IVF (5) Hypertension: Status: Acute Qualifiers: Hypertension type: primary hypertension Qualified Code(s): I10 - Essential (primary) hypertension
--- NOTE | 2021-10-11 15:16 | PCM.PROG ---
Progress Note - Progress Note for Day of Date of Exam: 10/11/21 - Subjective Subjective: WAS ADMITTED FOR TREATMENT OF UROSEPSIS, ACUTE ON CHRONIC RENAL FAILURE, AND HTN. TODAY, SHE IS ALERT AND ORIENTED, LYING IN BED ON MORNING ROUNDS. SHE CONTINUES WITH COMPLAINTS OF GENERALIZED WEAKNESS. SHE DOES ADMIT TO SLIGHT IMPROVEMENT IN SYMPTOMS SINCE ADMISSION. ON EXAMINATION, HEART IS REGULAR IN RATE AND RHYTHM. BILATERAL LUNGS NOTED WITH DIMINISHED LUNG SOUNDS THROUGHOUT. ABDOMEN IS ROUND, SOFT, AND NON-TENDER WITH LOWER ABDOMEN TENDERNESS TO PALPATION. A HURD CATHETER IS NOTED TO BEDSIDE DRAINAGE. 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 HER VITALS THIS MORNING ARE: 97.6-50-20-94%-145/66. LABS WERE OBTAINED. ABNORMAL LAB VALUES INCLUDE THE FOLLOWING: RBC 3.41, HGB 10.0, HCT 29.6, CHLORIDE 108, BUN 32, CREATININE 1.12, GLUCOSE 111, AST 12, TOTAL PROTEIN 6.3, ALBUMIN 3.0. URINE CULTURE REVEALED GROWTH OF E.COLI AND ENTEROCOCCUS FAECALIS. SHE IS CURRENTLY RECEIVING NORMAL SALINE AT 125ML/HR, DOXYCYCLINE 100MG IV BID, CLONAZEPAM 0.5MG PO HS, LEXAPRO 10MG PO DAILY, PEPCID 40MG PO BID, NAMENDA 10MG PO DAILY, LYRICA 75MG PO DAILY, LOSARTAN 100MG PO DAILY, CLONIDINE 0.1MG/HR TD PATCH, AND THE POTASSIUM AND MAGNESIUM PROTOCOLS. PHYSICAL THERAPY IS WORKING WITH PATIENT DAILY. SHE REQUIRES MODERATE ASSISTANCE WITH AMBULATION. OTHERWISE, WE PLAN TO FOLLOW UP WITH AM LABS AND CONTINUE TO MONITOR. TIME SPENT ON CLINICAL ASSESSMENT, REVIEWING LABS AND IMAGING, DECISION MAKING, AND DOCUMENTATION WAS GREATER THAN 45 MINUTES. - Past Medical Family Social History Past Med/Fam/Surg Hx: No changes since H&P Allergies: Allergies ciprofloxacin [From Cipro HC] Adverse Reaction (Severe, Verified 03/28/21 21:54) ANAPHALEXIS REACTION hydrocortisone [From Cipro HC] Adverse Reaction (Severe, Verified 03/28/21 21:54) ANAPHALEXIS REACTION acetaminophen [From Lorcet (hydrocodone)] Adverse Reaction (Mild, Verified 03/28/21 21:54) RASH baclofen Adverse Reaction (Mild, Verified 03/28/21 21:54) RASH hydrocodone [From Lorcet (hydrocodone)] Adverse Reaction (Mild, Verified 03/28/21 21:54) RASH tramadol Adverse Reaction (Mild, Verified 03/28/21 21:54) RASH - Review of Systems ROS: No change since H&P - Vital Signs and I&O's Vital Signs: Temperature 98.5 F Pulse Rate [Radial] 52 Pulse Rate 82 Respiratory Rate 20 Blood Pressure [Left Arm] 169/70 Blood Pressure [Right Arm] 189/77 Blood Pressure 116/54 O2 Sat by Pulse Oximetry 98 Intake and Output: Intake & Output 10/09/21 10/10/21 10/11/21 10/12/21 11:59 11:59 11:59 11:59 Intake Total 630 / 630 1140 / 1140 2374 / 2374 Output Total 2200 / 2200 2825 / 2825 3050 / 3050 Balance -1570 / -1570 -1685 / -1685 -676 / -676 - Physical Exam Oriented: Normal Eyes: Normal Ear: Normal Nose: Normal Throat: Normal Respiratory: Generalized, Diminished Cardiovascular: Normal : Other (CHRONIC INDWELLING HURD) Auscultation: Bowel Sounds: Normal Palpation: Normal Tenderness: Suprapubic, Mild Skin: Decreased [place] Musculoskeletal: Normal Psychiatric: Normal Mood Description: Calm Affect: Normal Speech Pattern: Clear, Appropriate - Laboratory and Diagnostics Result Diagrams: 10/11/21 05:58 10/11/21 05:58 Labs: 10/04/21 09:50 Urine,Clean Catch Urine Culture - Final 10/02/21 17:55 Catheter Tip - Other - Final Escherichia Coli Enterococcus Faecalis 10/02/21 16:40 Urine,Catheterized Urine Culture - Final Laboratory WBC 7.5 X10^3/uL (3.6-10.0) 10/11/21 05:58 RBC 3.41 X10^6/uL (3.5-5.4) L 10/11/21 05:58 Hgb 10.0 g/dL (12.0-16.0) L 10/11/21 05:58 Hct 29.6 % (36.0-47.0) L 10/11/21 05:58 MCV 86.7 fL (80.0-100.0) 10/11/21 05:58 MCH 29.4 pg (27.0-34.0) 10/11/21 05:58 MCHC 33.9 g/dL (33.0-35.0) 10/11/21 05:58 RDW 14.7 % (11.6-16.5) 10/11/21 05:58 Plt Count 228 X10^3/uL (150.0-450.0) 10/11/21 05:58 Plt Count Comment Adequate (ADEQUATE) 10/03/21 03:52 MPV 10.4 fL (7.4-11.0) 10/11/21 05:58 Neut % (Auto) 55.8 % (42.0-75.0) 10/11/21 05:58 Lymph % (Auto) 31.8 % (21.0-51.0) 10/11/21 05:58 [place] % (Auto) 8.8 % (0.0-13.0) 10/11/21 05:58 Eos % (Auto) 2.8 % (0.9-2.9) 10/11/21 05:58 Baso % (Auto) 0.8 % (0.2-1.0) 10/11/21 05:58 Neut # (Auto) 4.2 x10^3/uL (2.2-4.8) 10/11/21 05:58 Lymph # (Auto) 2.4 X10^3/uL (1.3-2.9) 10/11/21 05:58 [place] # (Auto) 0.7 x10^3/uL (0.3-0.8) 10/11/21 05:58 Eos # (Auto) 0.2 x10^3/uL (0.0-0.2) 10/11/21 05:58 Baso # (Auto) 0.1 X10^3/uL (0.0-0.1) 10/11/21 05:58 Absolute Nucleated RBC 0.1 /100WBC 10/11/21 05:58 Total Counted 100 10/03/21 03:52 Neutrophils % (Manual) 91 % (39-76) H 10/03/21 03:52 Band Neutrophils % 2 % (0-10) 10/03/21 03:52 Lymphocytes % (Manual) 4 % (13-43) L 10/03/21 03:52 Monocytes % (Manual) 3 % (4-9) L 10/03/21 03:52 Plt Morphology Comment Normal (NORMAL) 10/03/21 03:52 RBC Morphology Normal (NORMAL) 10/03/21 03:52 Sodium 143 mmol/L (136-145) 10/11/21 05:58 Corrected Sodium 143 mmol/L (136-145) 10/11/21 05:58 Potassium 4.0 mmol/L (3.5-5.1) 10/11/21 05:58 Chloride 108 mmol/L (98-107) H 10/11/21 05:58 Carbon Dioxide 24.9 mmol/L (21-32) 10/11/21 05:58 BUN 32 mg/dL (7-18) H 10/11/21 05:58 Creatinine 1.12 mg/dL (0.55-1.02) H 10/11/21 05:58 Est GFR (MDRD) Af Amer > 60 (>60) 10/11/21 05:58 Est GFR (MDRD) Non-Af 51 (>60) L 10/11/21 05:58 Glucose 111 mg/dL (65-99) H 10/11/21 05:58 POC Glucose (mg/dL) 108 mg/dL (65-99) H 10/11/21 05:18 Lactic Acid 1.2 mmol/L (0.4-2.0) 10/02/21 17:09 Calcium 8.7 mg/dL (8.5-10.1) 10/11/21 05:58 Corrected Calcium 9.5 mg/dL (8.5-10.1) 10/11/21 05:58 Magnesium 2.0 mg/dL (1.7-2.9) 10/05/21 05:16 Total Bilirubin 0.30 mg/dL (0.2-1.0) 10/11/21 05:58 AST 12 Units/L (15-37) L 10/11/21 05:58 ALT 13 Units/L (12-78) 10/11/21 05:58 Alkaline Phosphatase 58 Units/L (46-116) 10/11/21 05:58 Total Protein 6.3 g/dL (6.4-8.2) L 10/11/21 05:58 Albumin 3.0 g/dL (3.4-5.0) L 10/11/21 05:58 Globulin 3.3 g/dL (2.5-4.5) 10/11/21 05:58 Albumin/Globulin Ratio 0.9 Ratio (1.1-2.1) L 10/11/21 05:58 Specimen Type Catherized urine 10/02/21 16:40 Urine Color Yellow (YELLOW) 10/02/21 16:40 Urine Appearance Cloudy (CLEAR) 10/02/21 16:40 Urine pH 6.0 (5.0 - 8.0) 10/02/21 16:40 Ur Specific [place] 1.015 (1.000-1.030) 10/02/21 16:40 Urine Protein 4+ (NEGATIVE) 10/02/21 16:40 Urine Glucose (UA) Negative (NEGATIVE) 10/02/21 16:40 Urine Ketones Negative (NEGATIVE) 10/02/21 16:40 Urine Occult Blood 5+ (NEGATIVE) 10/02/21 16:40 Urine Nitrite Positive (NEGATIVE) 10/02/21 16:40 Urine Bilirubin Negative (NEGATIVE) 10/02/21 16:40 Urine Urobilinogen Normal (NORMAL) 10/02/21 16:40 Ur Leukocyte Esterase 3+ (NEGATIVE) 10/02/21 16:40 Urine RBC 10-20 /HPF (0-3) A 10/02/21 16:40 Urine WBC Tntc /HPF (0-5) A 10/02/21 16:40 Ur Squamous Epith Cells Few /HPF (NEGATIVE) 10/02/21 16:40 Amorphous Sediment 1+ /HPF (NEGATIVE) 10/02/21 16:40 Urine Bacteria 3+ /HPF (NEGATIVE) 10/02/21 16:40 Hyaline Casts Few /LPF (NEGATIVE) 10/02/21 16:40 Urine Mucus Few /HPF (NEGATIVE) 10/02/21 16:40 Ur Culture Indicated? Yes/culture set up 10/02/21 16:40 SARS CoV-2 RNA Rapid CHRISTOPHER Negative (NEGATIVE) 10/02/21 17:55 - Plan (1) Sepsis Status: Acute Qualifiers: Sepsis type: Escherichia coli Sepsis acute organ dysfunction status: unspecified Qualified Code(s): A41.51 - Sepsis due to Escherichia coli [E. coli] Plan: NORMAL SALINE AT 125ML/HR, DOXYCYCLINE 100MG IV Q12H, CLONAZEPAM 0.5MG PO HS, LEXAPRO 10MG PO DAILY, PEPCID 40MG PO BID, NAMENDA 10MG PO DAILY, LOSARTAN 100MG PO DAILY, CATAPRES 0.1MG TD PATCH, LYRICA 75MG PO DAILY, AND THE POTASSIUM AND MAGNESIUM PROTOCOLS. (2) Urinary tract infection Status: Acute Qualifiers: Indwelling urinary catheter type: indwelling urethral catheter Encounter type: initial encounter Plan: Add Cipro for coverage of UTI. D/C Doxycycline. (3) Acute on chronic kidney failure Status: Acute Qualifiers: Acute renal failure type: unspecified Chronic kidney disease stage: stage 3 (moderate) Chronic kidney disease stage 3 subtype: stage 3b (GFR 30-44) Qualified Code(s): N17.9 - Acute kidney failure, unspecified; N18.32 - Chronic kidney disease, stage 3b (4) Dehydration Status: Acute Plan: IVF (5) Hypertension Status: Acute Qualifiers: Hypertension type: primary hypertension Qualified Code(s): I10 - Essential (primary) hypertension
[2021-10-11] MEDS: COLACE CAP 100 MG PO SCH (20:26)
[2021-10-11] MEDS: KLONOPIN TAB 0.5 MG PO SCH (20:26)
[2021-10-12] MEDS: NS 1,000 ML IV 1,000 ML IV SCH ×2 (05:43→09:06)
[2021-10-12 06:27] LABS: BASOPHILS # (AUTO) 0.1 X10^3/uL (0.0-0.1); BASOPHILS % (AUTO) 0.8 % (0.2-1.0); EOSINOPHILS # (AUTO) 0.2 x10^3/uL (0.0-0.2); EOSINOPHILS % (AUTO) 2.5 % (0.9-2.9); HEMATOCRIT 29.4 % (36.0-47.0); HEMOGLOBIN 9.9 g/dL (12.0-16.0); LYMPHOCYTES # (AUTO) 2.3 X10^3/uL (1.3-2.9); LYMPHOCYTES % (AUTO) 27.9 % (21.0-51.0); MEAN CORPUSCULAR HEMOGLOBIN 29.1 pg (27.0-34.0); MEAN CORPUSCULAR HGB CONC 33.7 g/dL (33.0-35.0); MEAN CORPUSCULAR VOLUME 86.6 fL (80.0-100.0); MEAN PLATELET VOLUME 10.3 fL (7.4-11.0); MONOCYTES # (AUTO) 0.6 x10^3/uL (0.3-0.8); NEUTROPHILS # (AUTO) 5.1 x10^3/uL (2.2-4.8); NEUTROPHILS % (AUTO) 61.8 % (42.0-75.0); RED CELL DISTRIBUTION WIDTH 14.9 % (11.6-16.5); WHITE BLOOD COUNT 8.2 X10^3/uL (3.6-10.0)
[2021-10-12 06:28] LABS: BLOOD UREA NITROGEN 32 mg/dL (7-18); CALCIUM 8.8 mg/dL (8.5-10.1); CARBON DIOXIDE 24.2 mmol/L (21-32); CHLORIDE 109 mmol/L (98-107); CREATININE 1.18 mg/dL (0.55-1.02); SODIUM 144 mmol/L (136-145); eGFR NON BLACK RACES 48 (>60)
[2021-10-12 07:25] LABS: ALANINE AMINOTRANSFERASE 15 Units/L (12-78); ALKALINE PHOSPHATASE 61 Units/L (46-116); ASPARTATE AMINO TRANSFERASE 15 Units/L (15-37)
[2021-10-12 07:26] LABS: ALBUMIN 3.2 g/dL (3.4-5.0); COR CA(FOR HYPOALB) 9.4 mg/dL (8.5-10.1); TOTAL PROTEIN 6.3 g/dL (6.4-8.2)
[2021-10-12 07:48] VITALS: BP 146/63
[2021-10-12] MEDS ORDERED: LEXAPRO ONE (08:56)
[2021-10-12] MEDS: COZAAR PO SCH (09:07)
[2021-10-12] MEDS: LYRICA CAP 75 mg PO SCH (09:07)
[2021-10-12] MEDS: LEXAPRO PO SCH (09:07)
[2021-10-12] MEDS: PEPCID TAB 20 MG PO SCH (09:08)
[2021-10-12] MEDS: LOVENOX INJ 30 MG SYR SC SCH (09:17)
[2021-10-12] MEDS: ALBUMIN HUMAN 25%- 100 ML 100 ML IV SCH (09:17)
[2021-10-12] MEDS: NAMENDA TAB 10 MG PO SCH (09:17)
[2021-10-12] MEDS: VIBRAMYCIN 100 MG in D5W 250 ML IV 250 ML IV SCH (09:18)
== END 2021-10-12 09:45 | DRG 872 ==
LOC: ER 15:57 → MED/SURG 18:19
PROVIDERS: ADMIT Obstetrics & Gynecology Obstetrics; ATTEND Internal Medicine

== ENCOUNTER 2025-08-04 15:25 | Observation (INO) ==
[2025-08-04] MEDS ORDERED: TYLENOL 325 MG TAB PO PRN (16:30)
[2025-08-04] MEDS ORDERED: CONSULT PHARMACY - POTASSIUM & MAGNESIUM XX SCH (17:00)
[2025-08-04 18:12] LABS: BLOOD/HEMOGLOBIN,URINE 2+ (NEGATIVE); LEUKOCYTE ESTERASE ,URINE 3+ (NEGATIVE); NITRITES,URINE POSITIVE (NEGATIVE)
[2025-08-04 18:22] LABS: MEAN PLATELET VOLUME 9.8 fL (7.4-11.0); RED CELL DISTRIBUTION WIDTH 14.4 % (11.6-16.5)
[2025-08-04 18:26] LABS: COR CA(FOR HYPOALB) 9.4 mg/dL (8.5-10.1); COR NA(FOR HYPERGLY) 141.0 mmol/L (136-145); CREATININE 1.42 mg/dL (0.55-1.02); eGFR NON BLACK RACES 38.0 (>60)
[2025-08-04 18:32] LABS: APPEARANCE,URINE SLIGHTLY HAZY (CLEAR)
[2025-08-04 18:33] LABS: SQUAMOUS EPITHELIAL CELL,UR RARE /HPF (NEGATIVE)
[2025-08-04] MEDS: NAMENDA TAB 10 MG PO SCH (20:28)
[2025-08-04] MEDS: COLACE CAP 100 MG PO SCH (20:29)
[2025-08-04] MEDS: MAXIPIME VIAL 1 GRAM 1 G in NS 50 ML IV 50 ML IV SCH (20:29)
[2025-08-04] MEDS: KLONOPIN TAB 0.5 MG PO SCH (20:29)
[2025-08-05 05:58] LABS: MEAN PLATELET VOLUME 9.9 fL (7.4-11.0); RED CELL DISTRIBUTION WIDTH 14.2 % (11.6-16.5)
[2025-08-05 06:09] LABS: COR CA(FOR HYPOALB) 9.5 mg/dL (8.5-10.1); COR NA(FOR HYPERGLY) 143.0 mmol/L (136-145); CREATININE 1.41 mg/dL (0.55-1.02); eGFR NON BLACK RACES 38.0 (>60)
[2025-08-05] MEDS: SODIUM BICARBONATE TAB 650MG PO SCH (08:43)
[2025-08-05] MEDS: COZAAR PO SCH (08:43)
[2025-08-05] MEDS: NS 250 ML IV 250 ML IV ONE (09:23)
[2025-08-05] MEDS: LOVENOX INJ 40 MG SYR SC SCH (10:48)
--- NOTE | 2025-08-05 12:58 | DR.H&P ---
H&P History & Physical for Day of: H&P Date: 08/05/25 Chief Complaint Chief Complaint: resistant UTI History of Present Illness History of Present Illness: Patient is a 80-year-old female with a past medical history of neurogenic bladder, chronic Simental, anxiety, depression, hypertension who is being treated outpatient for UTI. Her urine culture showed Pseudomonas but patient is allergic to fluoroquinolones. She was directly admitted for IV antibiotics for UTI treatment. Labs and UA were obtained. Cultures pending. She was started on cefepime. Labs/imaging reviewed: - WBC 8.3 hemoglobin 12.8 platelet 199 creatinine 1.41 - Urine culture from the office scanned in Plan: Admit to [facility]. Continue cefepime. Replace electrolytes as per protocol. Review recent urine culture. Due to patient's drug allergy, unable to treat with p.o. antibiotics outpatient. Patient would likely need PICC line for outpatient IV antibiotic treatment. CM to work on discharge planning with home health services. Continue home medications. Monitor a.m. labs and imaging. Past Medical History Past Medical History: Anxiety, Depression, GERD, Hypertension, Renal Disease and Sleep Apnea Additional Medical History: NEUROGENIC BLADDER, GUILLAIN-BARRE SYNDROME Past Surgical History Surgical History: Cholecystectomy and Hysterectomy Family History Family Medical History: Diabetes Mellitus, [place], Coronary Artery Disease, Heart Failure and Hypertension Social History Does patient currently use any type of tobacco product: Yes Type of Tobacco Use: Cigarettes Does any household member use tobacco: No Alcohol Use: None Drug Use: None Medications Home Medications: Home Medications Medication Instructions Recorded Confirmed Type losartan 100 mg tablet 100 mg PO QDAY 06/23/2307/19 History memantine 10 mg tablet 10 mg PO QHS 06/23/23 History pregabalin 75 mg capsule 75 mg PO QHS 06/23/23 History clonazepam 0.5 mg tablet 0.5 mg PO HS 08/04/25 History docusate sodium 100 mg tablet 100 mg PO BID 08/04/25 1 10/04/24 History sodium bicarbonate 650 mg tablet 1,950 mg PO DAILY 08/04/25 History Allergies Allergies Allergy/AdvReac Type Severity Reaction Status Date / Time hydrocodone (From Lorcet Allergy Mild RASH Verified 08/04/25 18:27 (hydrocodone)) tramadol Allergy Mild RASH Verified 08/04/25 18:27 ciprofloxacin (From Cipro HC) AdvReac Severe ANAPHALEXIS Verified 08/04/25 18:27 REACTION hydrocortisone (From Cipro AdvReac Severe ANAPHALEXIS Verified 08/04/25 18:27 HC) REACTION baclofen AdvReac Mild RASH Verified 08/04/25 18:27 Labs 08/05/25 05:41 08/05/25 05:41 Labs: 08/04/25 17:50 Urine,Catheterized Urine Culture - Preliminary Laboratory WBC 8.3 X10^3/uL (3.6-10.0) 08/05/25 05:41 RBC 4.19 X10^6/uL (3.5-5.4) 08/05/25 05:41 Hgb 12.8 g/dL (12.0-16.0) 08/05/25 05:41 Hct 37.3 % (36.0-47.0) 08/05/25 05:41 MCV 89.1 fL (80.0-100.0) 08/05/25 05:41 MCH 30.6 pg (27.0-34.0) 08/05/25 05:41 MCHC 34.3 g/dL (33.0-35.0) 08/05/25 05:41 RDW 14.2 % (11.6-16.5) 08/05/25 05:41 Plt Count 199 X10^3/uL (150.0-450.0) 08/05/25 05:41 MPV 9.9 fL (7.4-11.0) 08/05/25 05:41 Neut % (Auto) 60.2 % (42.0-75.0) 08/05/25 05:41 Lymph % (Auto) 29.0 % (21.0-51.0) 08/05/25 05:41 [place] % (Auto) 7.2 % (0.0-13.0) 08/05/25 05:41 Eos % (Auto) 2.8 % (0.9-2.9) 08/05/25 05:41 Baso % (Auto) 0.8 % (0.2-1.0) 08/05/25 05:41 Neut # (Auto) 5.0 x10^3/uL (2.2-4.8) H 08/05/25 05:41 Lymph # (Auto) 2.4 X10^3/uL (1.3-2.9) 08/05/25 05:41 [place] # (Auto) 0.6 x10^3/uL (0.3-0.8) 08/05/25 05:41 Eos # (Auto) 0.2 x10^3/uL (0.0-0.2) 08/05/25 05:41 Baso # (Auto) 0.1 X10^3/uL (0.0-0.1) 08/05/25 05:41 Absolute Nucleated RBC 0.1 /100WBC 08/05/25 05:41 Sodium 142 mmol/L (136-145) 08/05/25 05:41 Corrected Sodium 143 mmol/L (136-145) 08/05/25 05:41 Potassium 4.4 mmol/L (3.5-5.1) 08/05/25 05:41 Chloride 107 mmol/L (98-107) 08/05/25 05:41 Carbon Dioxide 25.7 mmol/L (21-32) 08/05/25 05:41 BUN 26 mg/dL (7-18) H 08/05/25 05:41 Creatinine 1.41 mg/dL (0.55-1.02) H 08/05/25 05:41 Est GFR (MDRD) Af Amer 46 (>60) L 08/05/25 05:41 Est GFR (MDRD) Non-Af 38 (>60) L 08/05/25 05:41 Glucose 122 mg/dL (65-99) H 08/05/25 05:41 Calcium 8.4 mg/dL (8.5-10.1) L 08/05/25 05:41 Corrected Calcium 9.5 mg/dL (8.5-10.1) 08/05/25 05:41 Magnesium 2.0 mg/dL (2.0-2.9) 08/04/25 18:04 Total Bilirubin 0.30 mg/dL (0.2-1.0) 08/05/25 05:41 AST 14 Units/L (15-37) L 08/05/25 05:41 ALT 13 Units/L (12-78) 08/05/25 05:41 Alkaline Phosphatase 75 Units/L (46-116) 08/05/25 05:41 Total Protein 6.0 g/dL (6.4-8.2) L 08/05/25 05:41 Albumin 2.6 g/dL (3.4-5.0) L 08/05/25 05:41 Globulin 3.4 g/dL (2.5-4.5) 08/05/25 05:41 Albumin/Globulin Ratio 0.8 Ratio (1.1-2.1) L 08/05/25 05:41 Specimen Type Catherized urine 08/04/25 17:50 Urine Color Pale yellow (YELLOW) 08/04/25 17:50 Urine Appearance Slightly hazy (CLEAR) 08/04/25 17:50 Urine pH 6.0 (5.0 - 8.0) 08/04/25 17:50 Ur Specific [place] 1.015 (1.000-1.030) 08/04/25 17:50 Urine Protein 2+ (NEGATIVE) 08/04/25 17:50 Urine Glucose (UA) Negative (NEGATIVE) 08/04/25 17:50 Urine Ketones Negative (NEGATIVE) 08/04/25 17:50 Urine Blood 2+ (NEGATIVE) 08/04/25 17:50 Urine Nitrite Positive (NEGATIVE) 08/04/25 17:50 Urine Bilirubin Negative (NEGATIVE) 08/04/25 17:50 Urine Urobilinogen Normal (NORMAL) 08/04/25 17:50 Ur Leukocyte Esterase 3+ (NEGATIVE) 08/04/25 17:50 Urine RBC 0-2 /HPF (0-3) 08/04/25 17:50 Urine WBC Tntc /HPF (0-5) A 08/04/25 17:50 Ur Squamous Epith Cells Rare /HPF (NEGATIVE) 08/04/25 17:50 Urine Bacteria Trace /HPF (NEGATIVE) 08/04/25 17:50 Ur Culture Indicated? Yes/culture set up 08/04/25 17:50 Review of Systems Constitutional: No Symptoms Reported Eyes: No Symptoms Reported ENT: No Symptoms Reported Respiratory: No Symptoms Reported Cardiovascular: No Symptoms Reported Gastrointestinal: No Symptoms Reported Genitourinary: Retention Musculoskeletal: No Symptoms Reported Skin: No Symptoms Reported Neurological: No Symptoms Reported Physical Exam Vital Signs: Vital Signs Temperature 97.8 F Temperature 97.8 F Pulse Rate [Apical] 73 Pulse Rate [Apical] 73 Respiratory Rate 19 Respiratory Rate 19 Blood Pressure [Left Arm] 122/57 Blood Pressure [Left Arm] 122/57 O2 Sat by Pulse Oximetry 94 O2 Sat by Pulse Oximetry 94 Oriented: Normal Respiratory: Clear Throughout Cardiovascular: Normal Auscultation: Bowel Sounds: Normal Palpation: Normal Tenderness: Normal Skin: Normal Musculoskeletal: Normal Psychiatric: Normal Mood Description: Calm Affect: Normal Speech Pattern: Clear and Appropriate Assessment/Plan (1) Pseudomonas urinary tract infection: Status: Acute (2) Chronic indwelling Simental catheter: Status: Acute (3) Urinary incontinence: Status: Chronic (4) Hypertension: Qualifiers: Hypertension type: primary hypertension Qualified Code(s): I10 - Essential (primary) hypertension Status: Chronic Review H&P Reviewed: Yes Patient was examined?: Yes
--- NOTE | 2025-08-05 14:32 | RAD ---
EXAM: CHEST, 1 VIEW HISTORY: PICC line placement; COMPARISON: No relevant prior studies were available for comparison at the time of interpretation. TECHNIQUE: CHEST, 1 VIEW FINDINGS: Chest: Lines and tubes: Left upper extremity PICC is in satisfactory position Mediastinum: Cardiac and mediastinal shadow is within normal limits for size and contour. Pulmonary vessels: No pulmonary vascular congestion. Lung avilez: No suspicious airspace opacity. Pleura: No effusion. No pneumothorax. Bones and soft tissues: No acute osseous or soft tissue abnormality. IMPRESSION: 1. Satisfactory PICC position THIS IS AN ELECTRONICALLY VERIFIED FINAL REPORT 08/05/2025 2:29 PM - Electronically signed by Chinedu Jacobs MD
--- NOTE | 2025-08-05 17:01 | DR.UPDATE ---
H&P Update Prescription drug monitoring program results: PDMP was not reviewed H&P Reviewed: Yes Any changes to H&P?: No Patient was examined?: Yes Vital Signs: Temp Pulse Resp BP Pulse Ox O2 Del Method 08/05/25 12:00 98.0 F 76 19 128/62 95 Room Air 08/05/25 08:00 97.8 F 73 19 122/57 94 L Room Air 08/05/25 08:00 97.8 F 73 19 122/57 94 L Room Air 08/05/25 07:00 Room Air 08/05/25 04:00 98.2 F 75 20 111/51 95 Room Air 08/05/25 00:00 97.6 F 76 20 137/63 97 Room Air 08/04/25 20:00 97.9 F 72 20 152/67 93 L Room Air 08/04/25 19:00 Room Air 08/04/25 18:00 97.6 F 66 20 145/64 98 Room Air 08/04/25 17:35 Room Air Procedures (ALL) - Central Line Placement PCM.CLCO: written consent Time out performed: Yes Patient placed pm monitor/pulse ox: Yes prep: mask, gown, gloves, other Centrial line prep: chlorhexidine scrub, sterile drapes applied Local anesthsia used: lidocane 1% Ultrasound used for placement: Yes (left basilic v id'd via u/s and cannulation vis) Central line lumen ininserted: double (5.5fr arrowgard. trimmed to 45cm. 0cm exposed) Post procedure: good blood return, all ports aspirated, flushed,capped, sterile dressing applied Post procedure xray: tip oc catheter in good position ("satisfactory" position per radiologist report) Complications: none
[2025-08-06 05:51] LABS: MEAN PLATELET VOLUME 10.0 fL (7.4-11.0); RED CELL DISTRIBUTION WIDTH 14.3 % (11.6-16.5)
[2025-08-06 06:01] LABS: COR CA(FOR HYPOALB) 9.9 mg/dL (8.5-10.1); COR NA(FOR HYPERGLY) 149 mmol/L (136-145); CREATININE 1.10 mg/dL (0.55-1.02); eGFR NON BLACK RACES 51 (>60)
[2025-08-06 07:46] VITALS: O2SAT 95
[2025-08-06 15:36] VITALS: BP 154/71; PULSE 68; RESP 18; TEMP 98.1
--- NOTE | 2025-08-12 10:27 | W.DIS.FURT ---
Summary of Discharge Discharge Summary of Date Date of Exam: 08/06/25 Admission Date Date of Admission: 08/06/25 Admission Diagnosis Hospital Course: Patient is a 80-year-old female with a past medical history of neurogenic bladder, chronic Simental, anxiety, depression, hypertension who is being treated outpatient for UTI. Her urine culture showed Pseudomonas but patient is allergic to fluoroquinolones. She was directly admitted for IV antibiotics for UTI treatment. Labs and UA were obtained. Cultures pending. She was started on cefepime. Labs are monitored daily and electrolytes replaced as needed. After reviewing the recent urine culture sensitivity, no p.o. option available to treat patient for recurrent UTI. PICC line was placed and patient will be sent home on IV antibiotics with home health services. Patient was stable for discharge. She will follow-up with PCP as scheduled. Labs: Laboratory Last Values WBC 8.3 X10^3/uL (3.6-10.0) 08/06/25 05:40 RBC 4.04 X10^6/uL (3.5-5.4) 08/06/25 05:40 Hgb 12.3 g/dL (12.0-16.0) 08/06/25 05:40 Hct 36.2 % (36.0-47.0) 08/06/25 05:40 MCV 89.5 fL (80.0-100.0) 08/06/25 05:40 MCH 30.5 pg (27.0-34.0) 08/06/25 05:40 MCHC 34.0 g/dL (33.0-35.0) 08/06/25 05:40 RDW 14.3 % (11.6-16.5) 08/06/25 05:40 Plt Count 196 X10^3/uL (150.0-450.0) 08/06/25 05:40 MPV 10.0 fL (7.4-11.0) 08/06/25 05:40 Neut % (Auto) 59.4 % (42.0-75.0) 08/06/25 05:40 Lymph % (Auto) 30.8 % (21.0-51.0) 08/06/25 05:40 Carson % (Auto) 6.3 % (0.0-13.0) 08/06/25 05:40 Eos % (Auto) 2.9 % (0.9-2.9) 08/06/25 05:40 Baso % (Auto) 0.6 % (0.2-1.0) 08/06/25 05:40 Neut # (Auto) 4.9 x10^3/uL (2.2-4.8) H 08/06/25 05:40 Lymph # (Auto) 2.6 X10^3/uL (1.3-2.9) 08/06/25 05:40 Carson # (Auto) 0.5 x10^3/uL (0.3-0.8) 08/06/25 05:40 Eos # (Auto) 0.2 x10^3/uL (0.0-0.2) 08/06/25 05:40 Baso # (Auto) 0.0 X10^3/uL (0.0-0.1) 08/06/25 05:40 Absolute Nucleated RBC 0.0 /100WBC 08/06/25 05:40 Sodium 148 mmol/L (136-145) H 08/06/25 05:40 Corrected Sodium 149 mmol/L (136-145) H 08/06/25 05:40 Potassium 4.5 mmol/L (3.5-5.1) 08/06/25 05:40 Chloride 113 mmol/L (98-107) H 08/06/25 05:40 Carbon Dioxide 28.5 mmol/L (21-32) 08/06/25 05:40 BUN 28 mg/dL (7-18) H 08/06/25 05:40 Creatinine 1.10 mg/dL (0.55-1.02) H 08/06/25 05:40 Est GFR (MDRD) Af Amer > 60 (>60) 08/06/25 05:40 Est GFR (MDRD) Non-Af 51 (>60) L 08/06/25 05:40 Glucose 126 mg/dL (65-99) H 08/06/25 05:40 Calcium 8.6 mg/dL (8.5-10.1) 08/06/25 05:40 Corrected Calcium 9.9 mg/dL (8.5-10.1) 08/06/25 05:40 Magnesium 2.1 mg/dL (2.0-2.9) 08/06/25 05:40 Total Bilirubin 0.20 mg/dL (0.2-1.0) 08/06/25 05:40 AST 14 Units/L (15-37) L 08/06/25 05:40 ALT 8 Units/L (12-78) L 08/06/25 05:40 Alkaline Phosphatase 73 Units/L (46-116) 08/06/25 05:40 Total Protein 5.9 g/dL (6.4-8.2) L 08/06/25 05:40 Albumin 2.4 g/dL (3.4-5.0) L 08/06/25 05:40 Globulin 3.5 g/dL (2.5-4.5) 08/06/25 05:40 Albumin/Globulin Ratio 0.7 Ratio (1.1-2.1) L 08/06/25 05:40 Specimen Type Catherized urine 08/04/25 17:50 Urine Color Pale yellow (YELLOW) 08/04/25 17:50 Urine Appearance Slightly hazy (CLEAR) 08/04/25 17:50 Urine pH 6.0 (5.0 - 8.0) 08/04/25 17:50 Ur Specific [place] 1.015 (1.000-1.030) 08/04/25 17:50 Urine Protein 2+ (NEGATIVE) 08/04/25 17:50 Urine Glucose (UA) Negative (NEGATIVE) 08/04/25 17:50 Urine Ketones Negative (NEGATIVE) 08/04/25 17:50 Urine Blood 2+ (NEGATIVE) 08/04/25 17:50 Urine Nitrite Positive (NEGATIVE) 08/04/25 17:50 Urine Bilirubin Negative (NEGATIVE) 08/04/25 17:50 Urine Urobilinogen Normal (NORMAL) 08/04/25 17:50 Ur Leukocyte Esterase 3+ (NEGATIVE) 08/04/25 17:50 Urine RBC 0-2 /HPF (0-3) 08/04/25 17:50 Urine WBC Tntc /HPF (0-5) A 08/04/25 17:50 Ur Squamous Epith Cells Rare /HPF (NEGATIVE) 08/04/25 17:50 Urine Bacteria Trace /HPF (NEGATIVE) 08/04/25 17:50 Ur Culture Indicated? Yes/culture set up 08/04/25 17:50 Reason For Visit: UTI Discharge Diagnosis All Active Problems (Updated 08/05/25 @ 12:58 by Marina Schmidt MD) Urinary incontinence (Chronic) Chronic indwelling Simental catheter (Acute) Pseudomonas urinary tract infection (Acute) CKD (chronic kidney disease) (Chronic) Vaginitis (Acute) Fx humeral neck (Acute) Urinary tract infection (Acute) Simental catheter in place (Chronic) Closed fracture of maxillary sinus (Acute) Fracture of nasal sinus (Acute) Avulsion of skin (Acute) Laceration of head (Acute) Contusion of head (Acute) Fall at home (Acute) Chest pain (Acute) Hypertension (Chronic) UTI (urinary tract infection) (Acute) Leukocytosis (Acute) Low back pain (Acute) Sepsis (Acute) Acute on chronic kidney failure (Acute) Dehydration (Acute) Ureterolithiasis (Acute) Urinary tract infection (Acute) ALF (acute kidney injury) (Acute) Urinary complication (Active) Plan of Treatment: Continue with present treatment and follow up plan. Pt is to keep follow up appointment as instructed and take medications as ordered. Discharge Medications Discharge Medications: hydrocodone (From Lorcet (hydrocodone)) Allergy (Mild, Verified 08/04/25 18:27) RASH tramadol Allergy (Mild, Verified 08/04/25 18:27) RASH ciprofloxacin (From Cipro HC) Adverse Reaction (Severe, Verified 08/04/25 18:27) ANAPHALEXIS REACTION hydrocortisone (From Cipro HC) Adverse Reaction (Severe, Verified 08/04/25 18:27) ANAPHALEXIS REACTION baclofen Adverse Reaction (Mild, Verified 08/04/25 18:27) RASH CONTINUE taking the following medications clonazepam 0.5 mg tablet 0.5 mg PO HS 08/04/25 [History] docusate sodium 100 mg tablet 100 mg PO BID 08/04/25 [History] sodium bicarbonate 650 mg tablet 1,950 mg PO DAILY 08/04/25 [History] New Prescriptions cefepime 1 gram solution for injection 1 g IV Q12H 10 days #20 ea 08/06/25 [Rx] Discharge Disposition Discharge Disposition: To home with home health services Discharge Condition: Stable Discharge Plan Discharge Plan Hospital Course: Patient is a 80-year-old female with a past medical history of neurogenic bladder, chronic Simental, anxiety, depression, hypertension who is being treated outpatient for UTI. Her urine culture showed Pseudomonas but patient is allergic to fluoroquinolones. She was directly admitted for IV antibiotics for UTI treatment. Labs and UA were obtained. Cultures pending. She was started on cefepime. Labs are monitored daily and electrolytes replaced as needed. After reviewing the recent urine culture sensitivity, no p.o. option available to treat patient for recurrent UTI. PICC line was placed and patient will be sent home on IV antibiotics with home health services. Patient was stable for discharge. She will follow-up with PCP as scheduled. Patient Disposition: HOME HEALTH SERVICE Condition: Stable Health Concerns: Post Hospitalization: new medications and changes needed to prevent readmission or further decline. Pt educated and given instructions on all concerns. Care Plan Goals: Problem: Infection Goal: Temperature within normal limits. Resolved infection. Instructions: Follow provided instructions. Follow up with primary physician as directed. Contact primary care physician or report to the closest Emergency Room if condition worsens. Plan of Treatment: Continue with present treatment and follow up plan. Pt is to keep follow up appointment as instructed and take medications as ordered. Prescription drug monitoring program results: PDMP reviewed and no concerns identified Prescriptions: New cefepime 1 gram Recon Soln 1 g IV Q12H 10 Days Qty: 20 0RF Continued losartan 100 mg tablet 100 mg PO QDAY memantine 10 mg tablet 10 mg PO QHS pregabalin 75 mg capsule 75 mg PO QHS clonazepam 0.5 mg tablet 0.5 mg PO HS sodium bicarbonate 650 mg Tablet 1,950 mg PO DAILY Rx Instructions: Sodium Bicarb tab 650mg take 3 tablets by mouth once a day docusate sodium 100 mg Tablet 100 mg PO BID Follow ups/Referrals Follow ups/Referrals: [facility]. [Other] AALIYAH TILLMAN [Nurse Practitioner, Unknown] - 08/11/25 1:30 pm Instructions Instructions: Urinary Tract Infection, Female, PICC Home Care Guide, Indwelling Urinary Catheter Skin Care, Adult Stand Alone Forms: Find Help Web Site, [facility] Follow Up Care Print Language: PORTUGUESE
== END 2025-08-06 16:45 | disposition home health service (06) ==
LOC: MED/SURG
PROVIDERS: ADMIT Internal Medicine; ATTEND Internal Medicine
DX: Z16.29 Resistance to other single specified antibiotic; Z96.0 Presence of urogenital implants; B96.5 Pseudomonas (aeruginosa) (mallei) (pseudomallei) as the cause of diseases classified elsewhere; Z16.19 Resistance to other specified beta lactam antibiotics; F32.89 Other specified depressive episodes; I10 Essential (primary) hypertension; E83.51 Hypocalcemia; Z16.12 Extended spectrum beta lactamase (ESBL) resistance; R79.89 Other specified abnormal findings of blood chemistry; E87.0 Hyperosmolality and hypernatremia; I87.2 Venous insufficiency (chronic) (peripheral); F41.8 Other specified anxiety disorders; N39.0 Urinary tract infection, site not specified; R26.89 Other abnormalities of gait and mobility; B96.89 Other specified bacterial agents as the cause of diseases classified elsewhere; Z85.828 Personal history of other malignant neoplasm of skin; R94.4 Abnormal results of kidney function studies; R32 Unspecified urinary incontinence; R73.09 Other abnormal glucose; K21.9 Gastro-esophageal reflux disease without esophagitis; Z60.8 Other problems related to social environment; Z16.11 Resistance to penicillins